=== PATIENT | female | born 1980 | race Caucasian/White ===

== ENCOUNTER 2023-03-25 09:43 | Emergency (ER) | payer MEDICAID, SELFPAY ==
[2023-03-25 09:45] VITALS: BP 146/85; PULSE 87; RESP 16; TEMP 36; O2SAT 97
--- NOTE | 2023-03-25 10:13 | EX.ED.DYSGE1 ---
HPI History of Present Illness Chief Complaint: General Illness Informant: patient Narrative Narrative: Patient was sent here due to high sugar and an outpatient visit. It is very difficult to get information from this patient. Almost every question she asked she says I do not know where she asks me why I am asking her and then still does not answer the question. Evidently she has not been feeling well but she cannot specify what this means. This has been going on a long time. Her friend pushed her to get evaluated today. Her sugar was up so they sent her to the emergency department. I can get from the patient that she has no nausea vomiting. She is eating and drinking. She has a slight chronic smoker's cough that is not changed. She does have a history of diabetes but she does not know how long ago it was diagnosed. She knows she was on metformin but does not know the dose. She knows its when she lived in [place] but she cannot tell me when she lived in [place]. She cannot tell me how long she has been off the meds. I can get her to state that she has polyuria and polydipsia. No visual change. She also complains of dental pain but states has been hurting for a long time it is no different today than any other day. [facility] Medical History delivery delivered Home Medications glipizide 5 mg tablet, extended release 24 hr 5 mg PO DAILY #30 tabs 03/25/23 [Rx Last Taken Unknown] Allergy/AdvReac Type Severity Reaction Status Date / Time No Known Allergies Allergy Verified 03/25/23 09:47 Social History Smoking Status: Current every day smoker tobacco type: cigarettes ROS ROS ED ROS Narrative A complete review of systems was performed and is negative except as documented in the history of present illness. Some specific details below. Constitutional: No recent fevers or chills. She has some chronic generalized malaise. EYE: No visual complaints or pain. ENT: No difficulty swallowing. No swelling. She does have some dental pain mostly on the left but it is chronic and unchanged. CV: No chest pain or palpitations. Respiratory: No dyspnea. No hemoptysis. No difficulty taking breaths. GI: No nausea vomiting or diarrhea. : She does have polyuria but no dysuria or hematuria. Musculoskeletal: No recent trauma. No pains. Skin: No rash. Nondiaphoretic. Neuro: No weakness or numbness. Endocrine: She does have polyuria and polydipsia. EXAM Physical Exam Narrative Exam Narrative: CONSTITUTIONAL: Patient is nontoxic in appearance. The patient looks comfortable. HEENT: No notable trauma. Mucous membranes are still moist. There is no dental abscess. No focal tenderness. Exam looks relatively normal. No sinus tenderness. No indication of pain with swallowing. EYES: No conjunctival injection. No proptosis. CARDIOVASCULAR: Regular rate. Regular rhythm. No notable murmur. No JVD. RESPIRATORY: No respiratory distress. Breathing is unlabored. No wheezes. No rhonchi. No rales. No pain with a deep breath. GASTROINTESTINAL: Not distended. Bowel sounds are normal. No tenderness. No guarding. No rebound. No palpable mass. No bruit. GENITOURINARY: No tenderness over the bladder. No CVA tenderness. MUSCULOSKELETAL: Atraumatic. No peripheral edema. No cord. No tenderness along the deep venous system. No asymmetry. NEUROLOGICAL: Patient is alert and appropriate. No focal deficit noted. SKIN: No noted rashes. No diaphoresis. PSYCHIATRIC: Patient is calm. Mood is appropriate. Const Vital Signs: 03/25/23 09:45 03/25/23 10:00 03/25/23 13:13 Temperature 96.8 F L Temperature Source Temporal Pulse Rate 87 78 Respiratory Rate 16 18 Respiratory Pattern Normal Blood Pressure 146/85 H 134/78 H Blood Pressure Mean 105 96 Pulse Ox 97 99 Oxygen Delivery Method Room Air MDM MDM MDM Narrative Medical decision making narrative: Patient CBC shows no acute abnormalities. Patient's electrolytes showed a glucose of 480. Sodium is minimally low but normal when corrected. BG T was initially 390. We rechecked it was 481 but this is more consistent with her lab. She was given IV fluids and insulin. She is now down to 338. Labs show no indication of DKA and there is no symptoms of this. She has not tolerated Glucophage in the past. We will start her on low-dose glipizide. It was explained that she needs to follow-up as she will likely need increase in dose or different medicine but I want at least get her started on some medication. Lab Data Attestation: I reviewed the patient's lab results. Labs: Laboratory Results - last 24 hr 03/25/23 03/25/23 03/25/23 10:06 10:27 11:26 WBC 5.5 RBC 4.83 Hgb 14.1 Hct 42.4 MCV 87.8 MCH 29.2 MCHC 33.3 RDW Std Deviation 40.3 RDW Coeff of [place] 12.5 Plt Count 252 MPV 9.7 Immature Gran % (Auto) 0.400 Neut % (Auto) 71.5 H Lymph % (Auto) 20.5 [place] % (Auto) 5.1 Eos % (Auto) 1.8 Baso % (Auto) 0.7 Absolute Neuts (auto) 3.9 Absolute Lymphs (auto) 1.13 Nucleated RBC % 0 Sodium 134 L Potassium 4.4 Chloride 100 Carbon Dioxide 26.0 Anion Gap 8 BUN 16 Creatinine 0.74 Est GFR (MDRD) Af Amer 110 Est GFR (MDRD) Non-Af 91 BUN/Creatinine Ratio 21.6 H Glucose 480 H* Calcium 9.2 POC Glucose 390 H 481 H* 03/25/23 12:43 WBC RBC Hgb Hct MCV MCH MCHC RDW Std Deviation RDW Coeff of [place] Plt Count MPV Immature Gran % (Auto) Neut % (Auto) Lymph % (Auto) [place] % (Auto) Eos % (Auto) Baso % (Auto) Absolute Neuts (auto) Absolute Lymphs (auto) Nucleated RBC % Sodium Potassium Chloride Carbon Dioxide Anion Gap BUN Creatinine Est GFR (MDRD) Af Amer Est GFR (MDRD) Non-Af BUN/Creatinine Ratio Glucose Calcium POC Glucose 338 H Discharge Plan Triage Chief Complaint: General Illness ED Provider: Daniele Juarez Dx/Rx/DC Orders Clinical Impression: Diabetes mellitus type 2 in obese, Non compliance w medication regimen Instructions: ED Diabetes- Overview, ED Diet: Diabetes Prescriptions: New glipizide 5 mg tablet extended release 24hr 5 mg PO DAILY Qty: 30 0RF Primary Care Provider: Care Physician,No Primary Referrals: Zeinab Steve [Non-Staff] - 3-5 Days NOT,DEFINED [Non-Staff] - Disposition Disposition: Home, Self Care Discharge Date/Time: 03/25/23 13:15
[2023-03-25 10:27] LABS: Bedside Glucose 390 mg/dL (74-106)
[2023-03-25] MEDS: 0.9% Normal Saline 1,000 ML 1000 ML IV (10:28)
[2023-03-25] MEDS: Insulin Lispro 100 UNIT/ML INSULN.PEN 10 UNIT SC (10:29)
[2023-03-25 10:38] LABS: Absolute Lymphocyte Count 1.13 X10^3/uL (0.83-4.51); Absolute Neutrophil Count 3.9 X10^3/uL (2.0-7.7); Basophil# 0.04 X10^3/uL; Basophil% 0.7 % (0-1); Eosinophils% 1.8 % (0-5); Hematocrit 42.4 % (37-47); Hemoglobin 14.1 g/dL (12.0-15.0); Lymphocyte # 1.13 X10^3/ul (0.83-4.51); Lymphocyte % 20.5 % (19-41); Mean Corp Hgb Conc 33.3 g/dL (32-36); Mean Corpuscular Hgb 29.2 pg (27.0-32.0); Mean Corpuscular Volume 87.8 fL (81-99); Mean Platelet Vol. 9.7 fl (6.2-12.0); Monocyte# 0.28 X10^3/uL; Monocyte% 5.1 % (0-10); NRBC Flagged by Analyzer 0 % (0-5); Neutrophil # 3.93 X10^3/uL (2.7-7.7); Neutrophil % 71.5 % (47-70); Platelet Count 252 K/mm3 (150-450); RBC Distribution Width CV 12.5 % (11.6-14.6); RBC Distribution Width SD 40.3 fl (35.1-43.9); Red Blood Count 4.83 M/mm3 (4.2-5.4); White Blood Count 5.5 K/mm3 (4.4-11.0)
[2023-03-25 10:54] LABS: Anion Gap 8 (5-15); BUN 16 mg/dL (7-18); BUN/Creat Ratio 21.6 RATIO (10-20); Calcium,Total 9.2 mg/dL (8.5-10.1); Chloride 100 mmol/L (98-107); Creatinine, Serum 0.74 mg/dL (0.55-1.02); EST Glomerular Filtration Rate 91 mL/min (>60); Est Glom Filt Rate - Afr Amer 110 mL/min (>60); Glucose 480 mg/dL (74-106); Potassium 4.4 mmol/L (3.5-5.1); Sodium Level 134 mmol/L (136-145)
[2023-03-25 11:45] LABS: Bedside Glucose 481 mg/dL (74-106)
[2023-03-25] MEDS: Insulin Lispro 100 UNIT/ML INSULN.PEN 15 UNIT SC (12:05)
[2023-03-25 13:02] LABS: Bedside Glucose 338 mg/dL (74-106)
[2023-03-25] MEDS: glipiZIDE XL 5 MG Tablet PO (13:10)
[2023-03-25 13:13] VITALS: BP 134/78; PULSE 78; RESP 18; O2SAT 99; BMI 44.4
== END 2023-03-25 13:15 | disposition home or self-care (01) ==
PROVIDERS: Emergency Provider Emergency Medicine; Visit Provider Emergency Medicine
DX: E11.9 Type 2 diabetes mellitus without complications (principal); J41.0 Simple chronic bronchitis; R35.89 Other polyuria; Z79.84 Long term (current) use of oral hypoglycemic drugs; Z91.148 Patient's other noncompliance with medication regimen for other reason; F17.210 Nicotine dependence, cigarettes, uncomplicated; R63.1 Polydipsia; E66.9 Obesity, unspecified
CPT/HCPCS: 80048; 82962; 85025; 96360; 96361; 99284; A4216

== ENCOUNTER 2023-04-29 21:58 | Emergency (ER) | payer MEDICAID, SELFPAY ==
[2023-04-29 21:59] VITALS: BP 145/91; PULSE 83; RESP 18; TEMP 36.1; O2SAT 98; BMI 43.3
--- NOTE | 2023-04-29 22:33 | EDS_ITS ---
HPI History of Present Illness Chief Complaint: Hyperglycemia Informant: patient Narrative Narrative: Patient presents for hyperglycemia, states her blood sugar was checked at the [facility] when she was there an hour or so ago and it was around 438. She states she has had polydipsia and polyuria, and cannot remember how long she has had it because that is normal for me I have diabetes. She is very poor historian. It basically sounds like from what I am able to gather from her that she was prescribed glipizide out of the ER and was on no diabetes medications prior to that, does not have a meter, had no doctor before going to the [facility], and was just prescribed glimepiride and insulin from there which she has not started yet. They wanted her to come to the emergency department but she refused, due to her high blood sugar, then she went back to the [facility] is currently staying at, and they told her that if she wants to continue staying there that she had to come and get her blood sugar feels fine. She denies any recent illness. She is currently using no illicit substances. [facility] Medical History Anxiety Bipolar disorder delivery delivered Depression Diabetes Home Medications glipizide 5 mg tablet, extended release 24 hr 5 mg PO DAILY #30 tabs 03/25/23 [Rx Last Taken Unknown] aripiprazole 5 mg tablet mg 04/29/23 [History Last Taken Unknown] blood sugar diagnostic #25 ea 04/29/23 [Rx Last Taken Unknown] blood-glucose meter #1 ea 04/29/23 [Rx Last Taken Unknown] clonidine HCl 0.1 mg tablet mg 04/29/23 [History Last Taken Unknown] dulaglutide 0.75 mg/0.5 mL subcutaneous pen injector (Trulicity) mg subcut 04/29/23 [History Last Taken Unknown] glimepiride 2 mg tablet 2 mg PO BID 04/29/23 [History Last Taken Unknown] hydroxyzine HCl 10 mg tablet mg 04/29/23 [History Last Taken Unknown] Allergy/AdvReac Type Severity Reaction Status Date / Time No Known Allergies Allergy Verified 04/29/23 22:02 Social History Smoking Status: Current every day smoker tobacco type: cigarettes ROS ROS ED Constitutional Constitutional ED: Denies chills or fever(s) Eyes Eyes: Denies change in vision or diplopia ENT ENT ED: Denies rhinorrhea or sore throat Cardiovascular Cardiovascular: Denies chest pain or palpitations Respiratory/Chest Respiratory/Chest: Denies cough or dyspnea Gastrointestinal Gastrointestinal: Denies abdominal pain, diarrhea, nausea or vomiting Genitourinary Genitourinary ED: Reports urinary frequency; Denies dysuria or hematuria Musculoskeletal Musculoskeletal: Denies back pain or neck pain Integumentary Denies abscess or rash Neurologic Neurologic: Denies headache(s), paresthesias or weakness Psychiatric Psychiatric: Denies anxiety or suicidal thoughts Endocrine Endocrinology: Reports polydipsia and polyuria EXAM Physical Exam Const Vital Signs: 04/29/23 21:59 Temperature 96.9 F L Temperature Source Temporal Pulse Rate 83 Respiratory Rate 18 Blood Pressure 145/91 H Blood Pressure Mean 109 Pulse Ox 98 Oxygen Delivery Method Room Air Positive well nourished, well developed and obese General Appearance ED: well developed and NAD Nutritional Appearance: obese HEENT Reports moist mucous membranes normocephalic and atraumatic Eyes PERRL and EOMs intact bilaterally Neck full ROM and supple Resp normal respiratory effort and clear to auscultation bilaterally Cardio regular rate, regular rhythm and no murmurs GI non-tender and non-distended Auscultation: normoactive bowel sounds Palpation: soft Back/Spine no CVA tenderness General Back: other FROM Extremity normal to inspection General Extremety ED: Negative for edema, pulses abnormal or tenderness General Extremity: Negative for edema or pulses abnormal Neuro oriented x3, CN's II-XII intact bilaterally and no sensory deficits noted Sensorium / Orientation: awake and alert Motor Exam: strength 5/5 throughout Skin no rashes or lesions noted and no wounds MDM MDM MDM Narrative Medical decision making narrative: Patient was given an IV with a liter of fluids and subcutaneous insulin and her blood sugar was monitored until it came down to a safe level. Nursing taught the patient to use her Trulicity, and help to give her her first dose tonight; the patient was not prescribed insulin, it is weekly subcutaneous Trulicity. We will have the patient follow-up for further diabetes education in the office. Lab Data Attestation: I reviewed the patient's lab results. Labs: Laboratory Results - last 24 hr 04/29/23 04/29/23 04/29/23 22:33 23:07 23:15 Sodium 135 L Potassium 3.9 Chloride 102 Carbon Dioxide 27.0 Anion Gap 6 BUN 17 Creatinine 0.80 Estim Creat Clear Calc 68.42 Est GFR (MDRD) Af Amer 101 Est GFR (MDRD) Non-Af 83 BUN/Creatinine Ratio 21.3 H Glucose 290 H Calcium 9.1 Urine Color Yellow Urine Clarity Clear Urine pH 6.0 Ur Specific [place] 1.020 Urine Protein 15 H Urine Glucose (UA) 1000 H Urine Ketones Negative Urine Occult Blood Negative Urine Nitrite Negative Urine Bilirubin Negative Urine Urobilinogen Normal Ur Leukocyte Esterase Negative Urine RBC 0 SEEN Urine WBC 0 SEEN Ur Squamous Epith Cells 0-5 SEEN Urine Bacteria RARE Urine Mucus 0 SEEN POC Glucose 261 H Discharge Plan Triage Chief Complaint: Hyperglycemia ED Provider: Andrew Ramirez Dx/Rx/DC Orders Clinical Impression: Uncontrolled type 2 diabetes mellitus with hyperglycemia Instructions: ED Diabetic Hyperglycemia Prescriptions: New (DME) blood sugar diagnostic Strip See Rx Instructions .Route Qty: 25 0RF Rx Instructions: As directed (DME) blood-glucose meter Misc See Rx Instructions .Route Qty: 1 0RF Rx Instructions: As directed No Action clonidine HCl 0.1 mg tablet Patient Comments: take 1 tablet by mouth twice a day as needed for anxiety glimepiride 2 mg tablet 2 mg PO BID aripiprazole 5 mg tablet Patient Comments: take one tablet by mouth once a day Trulicity 0.75 mg/0.5 mL pen injector SUBCUT hydroxyzine HCl 10 mg tablet Patient Comments: take 1 tablet by mouth 30 minutes before bedtime glipizide 5 mg tablet extended release 24hr 5 mg PO DAILY Qty: 30 0RF Primary Care Provider: Care Physician,No Primary Referrals: Zeinab Steve [Non-Staff] - As soon as possible (call for follow up appt; they will continue diabetes management education) Disposition Disposition: Home, Self Care
[2023-04-29] MEDS: 0.9% Normal Saline 1,000 ML 999 ML IV (22:37)
[2023-04-29] MEDS: Insulin Lispro 100 UNIT/ML INSULN.PEN 22 UNIT SC (22:43)
[2023-04-29 23:06] LABS: Anion Gap 6 (5-15); BUN 17 mg/dL (7-18); BUN/Creat Ratio 21.3 RATIO (10-20); Calcium,Total 9.1 mg/dL (8.5-10.1); Chloride 102 mmol/L (98-107); EST Glomerular Filtration Rate 83 mL/min (>60); Est Glom Filt Rate - Afr Amer 101 mL/min (>60); Estimated Creatinine Clearance 68.42 ml/min; Glucose 290 mg/dL (74-106); Potassium 3.9 mmol/L (3.5-5.1); Sodium Level 135 mmol/L (136-145)
[2023-04-29 23:39] LABS: Bedside Glucose 261 mg/dL (74-106)
[2023-04-29 23:46] LABS: Mucous, Urine 0 SEEN /hpf (<or=2+); Red Blood Cells-Urine 0 SEEN /hpf (0-5); White Blood Cells 0 SEEN /hpf (0-5)
[2023-04-29 23:48] LABS: Color, Urine Yellow (Yellow); Glucose, Dipstick 1000 mg/dl (Normal); Ketone-Dipstick Negative (Negative); Leukocyte Esterase-Dipstick Negative /ul (Negative); Nitrite-Dipstick Negative (Negative); Occult Blood-Urine Negative /ul (Negative); Protein-Dipstick 15 mg/dl (Negative); Urine Bilirubin Dipstick Negative (Negative); Urine Clarity Clear (Clear); Urine Urobilinogen Normal (Normal)
[2023-04-29 23:55] LABS: Bacteria RARE /hpf (None Seen); Squamous Epithelial Cells - UA 0-5 SEEN /hpf (5-10)
[2023-04-30 00:33] VITALS: BP 151/84; PULSE 78; RESP 16; O2SAT 98
[2023-04-30 00:39] VITALS: BP 151/84; PULSE 78; RESP 16; O2SAT 97
[2023-04-30 00:53] LABS: Bedside Glucose 129 mg/dL (74-106)
== END 2023-04-30 00:42 | disposition home or self-care (01) ==
PROVIDERS: Emergency Provider Emergency Medicine; Visit Provider Emergency Medicine
DX: E11.65 Type 2 diabetes mellitus with hyperglycemia (principal); F17.210 Nicotine dependence, cigarettes, uncomplicated; R63.1 Polydipsia; R35.89 Other polyuria; Z79.84 Long term (current) use of oral hypoglycemic drugs; Z79.899 Other long term (current) drug therapy; R35.0 Frequency of micturition; E66.9 Obesity, unspecified; Z79.85 Long-term (current) use of injectable non-insulin antidiabetic drugs
CPT/HCPCS: 80048; 81001; 82962; 96360; 99282; J7030

== ENCOUNTER 2023-05-17 16:24 | Emergency (ER) | payer MEDICAID, SELFPAY ==
[2023-05-17 16:27] VITALS: BP 145/93; PULSE 98; RESP 18; TEMP 36.1; O2SAT 95; BMI 42.3
--- NOTE | 2023-05-17 17:11 | EX.ED.DYSGE1 ---
HPI History of Present Illness Chief Complaint: Mental Health [facility] Medical History Anxiety Bipolar disorder delivery delivered Depression Diabetes Home Medications glipizide 5 mg tablet, extended release 24 hr 5 mg PO DAILY #30 tabs 03/25/23 [Rx Last Taken Unknown] aripiprazole 5 mg tablet mg 04/29/23 [History Last Taken Unknown] blood sugar diagnostic #25 ea 04/29/23 [Rx Last Taken Unknown] blood-glucose meter #1 ea 04/29/23 [Rx Last Taken Unknown] clonidine HCl 0.1 mg tablet mg 04/29/23 [History Last Taken Unknown] dulaglutide 0.75 mg/0.5 mL subcutaneous pen injector (Trulicity) mg subcut 04/29/23 [History Last Taken Unknown] glimepiride 2 mg tablet 2 mg PO BID 04/29/23 [History Last Taken Unknown] hydroxyzine HCl 10 mg tablet mg 04/29/23 [History Last Taken Unknown] Allergy/AdvReac Type Severity Reaction Status Date / Time No Known Allergies Allergy Verified 05/17/23 16:27 Social History Smoking Status: Heavy Smoker (>10/day) EXAM Physical Exam Const Vital Signs: 05/17/23 16:27 05/17/23 16:51 05/17/23 17:33 Temperature 97 F L Temperature Source Temporal Pulse Rate 98 72 Respiratory Rate 18 14 Respiratory Effort Normal Respiratory Pattern Normal Blood Pressure 145/93 H 140/85 H Blood Pressure Mean 110 103 Pulse Ox 95 98 Oxygen Delivery Method Room Air Room Air 05/17/23 19:00 05/17/23 22:02 Temperature Temperature Source Pulse Rate 65 86 Respiratory Rate 14 14 Respiratory Effort Respiratory Pattern Blood Pressure 110/72 141/99 H Blood Pressure Mean 84 113 Pulse Ox 100 100 Oxygen Delivery Method Room Air Room Air MDM MDM MDM Narrative Medical decision making narrative: HISTORY OF PRESENT ILLNESS: 41-year-old female here with concern for elevated blood sugar. States she has not been compliant with her home glipizide. She also states she is having suicidal thoughts, depression. States was [facility] a [facility] she does not plan on going back there. Denies any specific plan. Denies a history of suicidal attempt. Denies any homicidal ideation auditory visual hallucinations. REVIEW OF SYSTEMS: Pertinent positives: Elevated blood sugar, suicidal ideation Pertinent negatives: [Homicidal ideation, auditory visual loose [place] PHYSICAL EXAM: Nursing triage notes reviewed, Vital signs reviewed Constitutional: please see mdm HENT: MMM Eyes: Pupils equal round and reactive to light, Extraocular muscles intact Neck: No stridor, no JVD, full neck ROM Lungs: Clear to auscultation, No wheezing or rales. No increased work of breathing, no conversational dyspnea, no accessory muscle use, no nasal flaring. No respiratory distress noted Heart: Regular rate and rhythm, No murmurs, No rubs and No gallops, 2+ distal pulses (radial, femoral, posterior tibial) in all extremities Abdomen: Soft, there is no tenderness, rigidity, rebound or guarding, no obvious peritoneal signs, no palpable pulsatile abdominal masses, no auscultated abdominal bruit : No CVAT Extremities: No edema Neuro: No focal neurological deficits, cranial nerves II through XII intact, 5/5 strength in all extremities. Intact sensation to light touch in all extremities, 2+ reflexes bilateral patella tendons. Normal gait. No ataxia. Skin: No rash or lesions noted Psych: Normal affect, goal-directed thought process, appears well MEDICAL DECISION MAKING: Chief Complaint: Hyperglycemia, suicidal ideation External records reviewed: Prior ED visit reviewed. Seen on 04/29/2023 for type 2 diabetes hyperglycemia Factors affecting care: Type 2 diabetes Social determinants of health: Smoker History obtained from others: none Consults: behavioral health ALL IMAGES (IF OBTAINED) HAVE BEEN PERSONALLY REVIEWED AND INTERPRETED BY MYSELF. [facility] Narrative: Patient was hemodynamically stable, afebrile, nontoxic-appearing. No focal neurologic deficits. I considered the following differential diagnosis: Hyperglycemia, DKA I obtain medical clearance labs as well as labs to rule out signs of DKA. There is no evidence of DKA on patient's labs. Remainder of medical clearance labs were unremarkable. Patient was medically cleared. Discussed the case with behavioral health. Behavioral health will begin looking for possible inpatient psychiatric placement given the patient's report of suicidal ideation. Patient was signed out to p.m. physician pending transfer to psychiatric facility. The patient and/or family, caregivers express understanding. The patient and/or family, caregivers agrees with the plan. Shared decision making: I will have a discussion with the patient and or visitors regarding risk/benefits of further testing or admission. They will be made aware of of the risk/benefits inherent in this decision they will be given the opportunity to voice understanding. Total critical care time today provided was at least 0 minutes. This excludes separately billable procedures. Critical care time (if documented) is secondary to the patient having high probability of clinically significant/life threatening deterioration in the patient's condition which required my urgent intervention. Lab Data Attestation: I reviewed the patient's lab results. Lab results narrative: CBC without leukocytosis, severe anemia, no thrombocytopenia. BMP without evidence of significant electrolyte abnormalities, no anion gap, no acute kidney injury. There is no evidence of DKA Urine tox screen negative Acetone negative Urine test is negative Labs: Laboratory Results - last 24 hr 05/17/23 05/17/23 05/17/23 17:14 17:41 21:48 WBC 5.6 RBC 4.68 Hgb 13.8 Hct 40.2 MCV 85.9 MCH 29.5 MCHC 34.3 RDW Std Deviation 40.7 RDW Coeff of [place] 13.1 Plt Count 223 MPV 8.8 Immature Gran % (Auto) 0.400 Neut % (Auto) 64.2 Lymph % (Auto) 24.3 [place] % (Auto) 7.2 Eos % (Auto) 3.2 Baso % (Auto) 0.7 Absolute Neuts (auto) 3.6 Absolute Lymphs (auto) 1.35 Nucleated RBC % 0 Sodium 139 Potassium 4.1 Chloride 107 Carbon Dioxide 26.0 Anion Gap 6 BUN 11 Creatinine 0.86 Estim Creat Clear Calc 63.65 Est GFR (MDRD) Af Amer 92 Est GFR (MDRD) Non-Af 76 BUN/Creatinine Ratio 12.8 Glucose 236 H Calcium 8.8 Serum , Qual NEGATIVE Urine Opiates Screen NEGATIVE Urine Methadone Screen NEGATIVE Ur Barbiturates Screen NEGATIVE Ur Phencyclidine Scrn NEGATIVE Ur Amphetamines Screen NEGATIVE MDMA (Ecstasy) Screen NEGATIVE U Benzodiazepines Scrn NEGATIVE Urine Cocaine Screen NEGATIVE U Cannabinoids Screen NEGATIVE Ur Drug Screen Comment Ethyl Alcohol < 3.0 Acetone Level NEGATIVE POC Glucose 199 H 130 H Discharge Plan Triage Chief Complaint: Mental Health Other Complaint: Hyperglycemia ED Provider: Hilton Pizarro Dx/Rx/DC Orders Prescriptions: No Action clonidine HCl 0.1 mg tablet Patient Comments: take 1 tablet by mouth twice a day as needed for anxiety glimepiride 2 mg tablet 2 mg PO BID aripiprazole 5 mg tablet Patient Comments: take one tablet by mouth once a day Trulicity 0.75 mg/0.5 mL pen injector SUBCUT hydroxyzine HCl 10 mg tablet Patient Comments: take 1 tablet by mouth 30 minutes before bedtime (DME) blood sugar diagnostic Strip See Rx Instructions .Route Qty: 25 0RF Rx Instructions: As directed (DME) blood-glucose meter Misc See Rx Instructions .Route Qty: 1 0RF Rx Instructions: As directed glipizide 5 mg tablet extended release 24hr 5 mg PO DAILY Qty: 30 0RF Primary Care Provider: Care Physician,No Primary Referrals: Care Physician,No Primary [Primary Care Provider] -
[2023-05-17 17:27] LABS: Absolute Lymphocyte Count 1.35 X10^3/uL (0.83-4.51); Absolute Neutrophil Count 3.6 X10^3/uL (2.0-7.7); Basophil# 0.04 X10^3/uL; Basophil% 0.7 % (0-1); Eosinophil# 0.18 X10^3/uL; Eosinophils% 3.2 % (0-5); Hematocrit 40.2 % (37-47); Hemoglobin 13.8 g/dL (12.0-15.0); Lymphocyte # 1.35 X10^3/ul (0.83-4.51); Lymphocyte % 24.3 % (19-41); Mean Corp Hgb Conc 34.3 g/dL (32-36); Mean Corpuscular Hgb 29.5 pg (27.0-32.0); Mean Corpuscular Volume 85.9 fL (81-99); Mean Platelet Vol. 8.8 fl (6.2-12.0); Monocyte% 7.2 % (0-10); NRBC Flagged by Analyzer 0 % (0-5); Neutrophil # 3.56 X10^3/uL (2.7-7.7); Neutrophil % 64.2 % (47-70); Platelet Count 223 K/mm3 (150-450); RBC Distribution Width CV 13.1 % (11.6-14.6); RBC Distribution Width SD 40.7 fl (35.1-43.9); Red Blood Count 4.68 M/mm3 (4.2-5.4); White Blood Count 5.6 K/mm3 (4.4-11.0)
[2023-05-17 17:33] VITALS: BP 140/85; PULSE 72; RESP 14; O2SAT 98
[2023-05-17 17:39] LABS: Alcohol, Blood (Medical)-Serum < 3.0 mg/dL
[2023-05-17 17:41] LABS: Anion Gap 6 (5-15); BUN 11 mg/dL (7-18); BUN/Creat Ratio 12.8 RATIO (10-20); Calcium,Total 8.8 mg/dL (8.5-10.1); Chloride 107 mmol/L (98-107); Creatinine, Serum 0.86 mg/dL (0.55-1.02); EST Glomerular Filtration Rate 76 mL/min (>60); Est Glom Filt Rate - Afr Amer 92 mL/min (>60); Estimated Creatinine Clearance 63.65 ml/min; Glucose 236 mg/dL (74-106); Potassium 4.1 mmol/L (3.5-5.1); Sodium Level 139 mmol/L (136-145)
[2023-05-17 17:53] LABS: Internal QC Validated? YES +Cl - CLEAR BKGD; Pregnancy, Serum, hCG Quali. NEGATIVE Negative
[2023-05-17 17:59] LABS: Bedside Glucose 199 mg/dL (74-106)
[2023-05-17 19:00] VITALS: BP 110/72; PULSE 65; RESP 14; O2SAT 100
[2023-05-17 19:18] LABS: Amphetamine Urine VISTA NEGATIVE (<1000 ng/mL); Barbiturate Urine VISTA NEGATIVE (< 200 ng/mL); Benzodiazepine Urine VISTA NEGATIVE (< 200 ng/mL); Cocaine Urine VISTA NEGATIVE (< 300 ng/mL); Ecstacy Urine VISTA NEGATIVE (< 500 ng/mL); Methadone Urine VISTA NEGATIVE (< 300 ng/mL); PCP Urine VISTA NEGATIVE (< 25 ng/mL); THC Urine VISTA NEGATIVE (< 50 ng/mL); Vista UDS pH Range 5
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
[2023-05-17 22:02] VITALS: BP 141/99; PULSE 86; RESP 14; O2SAT 100
[2023-05-17 22:09] LABS: Bedside Glucose 130 mg/dL (74-106)
--- NOTE | 2023-05-18 03:37 | ED.RN ---
Report given to Aliza PENA @ [employer].
[2023-05-18 03:40] VITALS: RESP 17
[2023-05-18 06:05] VITALS: BP 114/62; PULSE 87; RESP 18; O2SAT 100
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
== END 2023-05-18 06:07 ==
PROVIDERS: Emergency Provider Emergency Medicine; Visit Provider Emergency Medicine
DX: R45.851 Suicidal ideations (principal); E11.65 Type 2 diabetes mellitus with hyperglycemia; F17.200 Nicotine dependence, unspecified, uncomplicated; Z91.148 Patient's other noncompliance with medication regimen for other reason; F32.A Depression, unspecified; Z59.00 Homelessness unspecified
CPT/HCPCS: 80048; 80307; 82009; 82077; 82962; 84703; 85025; 87811; 99285

== ENCOUNTER → 2024-11-07 | Outpatient (CLI) | payer MEDICAID, SELFPAY ==
[2024-11-07 14:35] LABS: Absolute Neutrophil Count 3.9 X10^3/uL (2.0-7.7); Basophil# 0.08 X10^3/uL; Basophil% 1.1 % (0-1); Eosinophil# 0.34 X10^3/uL; Eosinophils% 4.9 % (0-5); Hematocrit 40.6 % (37-47); Hemoglobin 14.1 g/dL (12.0-15.0); Mean Corp Hgb Conc 34.7 g/dL (32-36); Mean Corpuscular Hgb 29.2 pg (27.0-32.0); Mean Corpuscular Volume 84.1 fL (81-99); Mean Platelet Vol. 9.6 fl (6.2-12.0); Monocyte# 0.51 X10^3/uL; Monocyte% 7.3 % (0-10); NRBC Flagged by Analyzer 0 % (0-5); Neutrophil # 3.94 X10^3/uL (2.7-7.7); Neutrophil % 56.4 % (47-70); Platelet Count 236 K/mm3 (150-450); RBC Distribution Width CV 12.3 % (11.6-14.6); RBC Distribution Width SD 37.2 fl (35.1-43.9); Red Blood Count 4.83 M/mm3 (4.2-5.4)
[2024-11-07 15:09] LABS: ALB/GLOB Ratio 0.9 RATIO (0.9-2.4); AST(SGOT) 13 U/L (15-37); Alanine Aminotransfer ALT/SGPT 28 U/L (13-56); Albumin, Serum 3.7 g/dL (3.2-5.0); Alkaline Phosphatase 101 U/L (45-117); Anion Gap 7 (5-15); BUN 21 mg/dL (7-18); BUN/Creat Ratio 27.5 RATIO (10-20); Calcium,Total 9.7 mg/dL (8.5-10.1); Chloride 102 mmol/L (98-107); Cholesterol 265 mg/dL (200); Creatinine, Serum 0.76 mg/dL (0.55-1.02); EST Glomerular Filtration Rate 87 mL/min (>60); Est Glom Filt Rate - Afr Amer 105 mL/min (>60); Globulin 4.3 g/dL (2.2-4.2); Glucose 318 mg/dL (74-106); High Density Lipoprotein 54 mg/dL; Potassium 4.5 mmol/L (3.5-5.1); Sodium Level 135 mmol/L (136-145); Triglycerides 451 mg/dL
[2024-11-07 15:39] LABS: Microalbumin,Random Urine 14.8 mg/L (NO RANGE EST.)
== END | disposition home or self-care (01) ==
LOC: VSLAB 13:41
DX: E11.8 Type 2 diabetes mellitus with unspecified complications (principal)
CPT/HCPCS: 36415; 80053; 80061; 82043; 84443; 85025

== ENCOUNTER → 2025-04-16 | Outpatient (CLI) | payer MEDICAID, SELFPAY ==
[2025-04-16 16:30] LABS: Hematocrit 37.3 % (37-47); Hemoglobin 13.1 g/dL (12.0-15.0); Immature Granulocytes Count 0.010 X10^3/uL (0.0-0.0); Mean Corp Hgb Conc 35.1 g/dL (32-36); Mean Corpuscular Volume 84.4 fL (81-99); Mean Platelet Vol. 9.9 fl (6.2-12.0); NRBC Flagged by Analyzer 0 % (0-5); Platelet Count 197 K/mm3 (150-450); RBC Distribution Width CV 13.2 % (11.6-14.6); RBC Distribution Width SD 39.9 fl (35.1-43.9); Red Blood Count 4.42 M/mm3 (4.2-5.4); White Blood Count 5.4 K/mm3 (4.4-11.0)
[2025-04-16 16:49] LABS: Microalbumin,Random Urine < 12.0 mg/L (<20 mg/L)
[2025-04-16 16:51] LABS: Cholesterol 249 mg/dL (<=200); Low Density Lipoprotein Calc. 67 mg/dL; Triglycerides 703 mg/dL; Very Low Density Lipoprotein 141 mg/dL (5-40); cholesterol:hdl ratio screen 6.06
[2025-04-16 17:18] LABS: AST(SGOT) 16 U/L (<=31); Alanine Aminotransfer ALT/SGPT 18 U/L (<=34); Albumin, Serum 4.1 g/dL (3.5-5.0); Alkaline Phosphatase 97 U/L (35-104); Anion Gap 12 (5-15); BUN 10 mg/dL (4-19); BUN/Creat Ratio 13.7 RATIO (10-20); Calcium,Total 9.1 mg/dL (7.6-11.0); Carbon Dioxide 20.7 mmol/L (21.0-32.0); Chloride 99 mmol/L (98-108); Globulin 2.9 g/dL (2.2-4.2); Glucose 485 mg/dL (70-99); Potassium 4.3 mmol/L (3.3-5.1)
== END | disposition home or self-care (01) ==
LOC: VSLAB 14:20
DX: E11.8 Type 2 diabetes mellitus with unspecified complications (principal); E78.5 Hyperlipidemia, unspecified
CPT/HCPCS: 36415; 80053; 80061; 82043; 84443; 85025

== ENCOUNTER 2025-06-06 09:20 | Outpatient (RCR) | payer MEDICAID, SELFPAY | END 2025-06-26 23:59 | LOC: NS 09:20 | DX: Z71.3 Dietary counseling and surveillance (principal); E11.9 Type 2 diabetes mellitus without complications | CPT/HCPCS: 97802 ==

== ENCOUNTER → 2025-07-17 | Outpatient (CLI) | payer MEDICAID, SELFPAY ==
--- OUTSIDE RECORDS SUMMARY | 2025-07-17 15:08 | XMS RPT_ITS | CCD ---
Author Organization [facility] Care Team Providers Care Train Dispatcher Name Role Phone Travis Petersen MD Primary Care Provider TRAVIS PETERSEN Primary Care Unavailable STEPHANI CEDILLO Attending Unavailable TRAVIS PETERSEN Primary Care Unavailable HESHAM JACOB Attending Unavailable SECOR, KASSIE Rodriguez Primary Care Unavailable SECELSA, KASSIE Rodriguez Referring Unavailable ALFRED COTTER Attending Unavailable SECKASSIE HUNTER Primary Care Unavailable SAEED COOK Attending Unavailable SECORKASSIE Primary Care Unavailable Juan Clark Attending Unavailable Physician, No Pcp Primary Care Provider Unavaila ble Self, Self Primary Care Provider Unavailhira e SELF, SELF Primary Care Unavailable MAMI AMARO Attending Unavailable SELF, SELF Primary Care Unavailable SONA RODRÍGUEZ Attending Unavailable CONSULT, ED PSYCHIATRY TEAM Consulting Unav ailable PHYSICIAN, NO PCP Primary Care Unavailable RITA PIPER Attending Unavailable PHYSICIAN, NO PCP Primary Care Unavailable RITA PIPER Referring Unavailable PHYSICIAN, NO PCP Primary Care Unavailable NATTERER STAYCI~[id number], NA TTERER STAYCI~[phone] NATTERCISCO Attending Unavailable ALFRED FLORES Attending Unavailabl e PHYSICIAN, NO PCP Primary Care Unavailable STEFANIE MTICHELL Attending Unavailable PHYSICIAN, NO PCP Primary Care Unavailable [facility][id number] Attending Unavailable PHYSICIAN, NO PCP Primary Care Unavailable TEOFILO HADDAD Attending Unavaila ble NO, PHYSICIAN Primary Care Unavailable NO, PHYSICIAN Primary Care Unavailable MEHDI THOMAS Attending Unavailable BRENNEN SWENSON Attending Unavailable NO, PHYSICIAN Primary Care Unavailable LUX BECKER Attending Unavailab le NO, PHYSICIAN Primary Care Unavailable ROLAN SANDERSON DO Attending Unavailable ROLAN SANDERSON DO Primary Care Unavailable ROLAN SANDERSON DO Admitting Unavailable Beam INDUCTION HEAT TREATER-C, Zebuluamna Primary Care Provider Beam INDUCTION HEAT TREATER-C, Zebulun Attending Provider Beam INDUCTION HEAT TREATER-C, Zebulun Primary Care Physician Beam INDUCTION HEAT TREATER-C, Zebulun Attending Physician Beam, Galen Attending Physician Unavailable Beam VSC, Zebulun Primary Care Unavailable Beam VSC, Zebulun Attending Unavailable Beam, Galen Attending Unavailable Beam VSC, Zebulun Primary Care Unavailable Beam VSC, Zebulun Primary Care Unavailable Beam, Galen Attending Unavailable Beam VSC, Zebulun Primary Care Unavailable Beam VSC, Zebulun Attending Unavailable Medications Current Medications Medication Drug Class(es) Dates Sig (Normalized) Sig (Original) ARIPiprazole 5 mg oral tablet (3 sources) Atypical Antipsychotic Start: 04-29-2023 Start: 04-29-2023 Aripiprazole A ctive MG April 29, 2023 12:00am benzonatate 200 mg oral capsule (3 sources) Non-narcotic Antitussive Start: 09-29-2023 End: 10-06-2023 take 1 capsule by mouth three times daily for cough benzonatate 200 MG capsule Take 1 capsule by mouth three times a day if needed for cough for up to 7 days. Do not crush or chew. 21 capsule 09/30/2023 Active Blood Sugar Diagnostic (1 source) Start: 04-29-2023 Blood Sugar Diagnostic Active 0 .Route 25 April 29, 2023 12:00am As directed Blood-Glucose Meter (1 source) Start: 04-29-2023 Blood-Glucose Meter Active 0 .Route April 29, 2023 12:00am As directed Blood-Glucose Meter misc (2 sources) Start: 04-29-2023 Blood-Glucose Meter misc Active 0 .Route 1 0 April 29, 2023 12:00am As directed Cholecalciferol (1 source) Vitamin D Cholecalciferol (VITAMIN D PO) Take by mouth 0 Active cloNIDine hydrochloride 0.1 mg oral tablet (3 sources) Central alpha-2 Adrenergic Agonist Start: 04-29-2023 Start: 04-29-2023 Clonidine Hcl Active MG April 29, 2023 12:00am cyclobenzaprine hydrochloride 10 mg oral tablet (1 source) Muscle Relaxant Start: 03-17-2024 End: 03-27-2024 take 1 tablet by mouth twice daily for muscle spasms cyclobenzaprine (FLEXERIL) 10 mg tablet Take 1 tablet (10 mg total) by mouth 2 (two) times a day if needed for muscle spasms for up to 10 days. 20 tablet 03/17/2024 03/27/2024 Active 0.5 ml dulaglutide 1.5 mg/ml auto-injector (3 sources) GLP-1 Receptor Agonist Start: 04-29-2023 Start: 04-29-2023 Dulaglutide (D ulaglutide 0.75 Mg/0.5 Ml Subcutaneous Pen Injector) 0.75 mg/0.5 mL pen injector Active MG SC April 29, 2023 12:00am Fenofibrate (1 source) Peroxisome Proliferator Receptor alpha Agonist FENOFIBRATE PO Take by mouth 0 Active glimepiride 2 mg oral tablet (3 sources) Sulfonylurea Start: 04-29-20 take 1 tablet by mouth twice daily glipiZIDE er 5 mg 24 hr extended release oral tablet (5 sources) Sulfonylurea Start: 03-25-20 take 1 tablet by mouth once daily hydrOXYzine hydrochloride 10 mg oral tablet (3 sources) Antihistamine Start: 04-29-20 Start: 04-29-2023 Hydroxyzine Hc l Active MG April 29, 2023 12:00am ibuprofen 600 mg oral tablet (4 sources) Nonsteroidal Anti-inflammatory Drug Start: 03-17-2024 End: 03-27-2024 take 1 tablet by mouth every six hours as needed ibuprofen (ADVIL,MOTRIN) 600 mg tablet Take 1 tablet (600 mg total) by mouth every 6 (six) hours if needed for mild pain (for pain) for up to 10 days. 30 tablet 03/17/2024 03/27/2024 Active Start: 03-17-2024 End: 03-17-2024 take 600 mg by mouth once at mealtime 600 mg, oral, Once, On Wed03/17/24 at 1220, For 1 dose, Administer with food or milk to decrease GI upset Start: 03-01-2024 End: 03-06-2024 take 1 tablet by mouth every six hours as needed ibuprofen (ADVIL,MOTRIN) 600 mg tablet Take 1 tablet (600 mg total) by mouth every 6 (six) hours if needed for mild pain (for pain) for up to 5 days. 20 each 03/01/2024 03/06/2024 Active Start: 02-09-2024 End: 02-09-2024 take 1 tablet by mouth every six hours as needed 600 mg, Oral, EVERY 6 HOURS NEEDED, Starting on Wed02/09/24 at 0912, Until Wed02/09/24 at 1752, Moderate Pain, Give with food lidocaine 0.05 mg/mg medicated patch (3 sources) Antiarrhythmic, Amide Local Anesthetic Start: 03-17-2024 End: 04-16-2024 apply 1 dose transdermal route once daily, then apply 1 dose transdermal route every twelve hours lidocaine (Lidoderm) 5 % patch Apply 1 patch topically 1 (one) time each day. Remove & discard patch within 12 hours or as directed by . 30 each 03/17/2024 04/16/2024 Active Start: 03-17-2024 End: 03-17-2024 apply 1 dose topically every twelve hours, then apply 1 dose topically once 1 patch, Topical, Administer over 12 Hours, Once, On Wed03/17/24 at 1220, For 1 dose, Apply to shoulder. Start: 03-01-2024 End: 03-02-2024 apply 1 dose topically every twelve hours, then apply 1 dose topically once 1 patch, Topical, Administer over 12 Hours, Once, On Wed03/01/24 at 2336, For 1 dose, Apply to left trapezius area metFORMIN hydrochloride 500 mg oral tablet (6 sources) Biguanide Start: 01-06-2024 End: 04-16-2024 take 1 tablet by mouth twice daily at mealtime metFORMIN (GLUCOPHAGE) 500 mg tablet Take 1 tablet (500 mg total) by mouth 2 (two) times a day with meals. 60 each 03/17/2024 04/16/2024 Active METFORMIN HCL PO Take by mouth 0 Active OXcarbazepine (1 source) Anti-epileptic Agent OXcarbazepi ne (TRILEPTAL PO) Take by mouth 0 Active sulfamethoxazole 800 mg / trimethoprim 160 mg oral tablet (1 source) Dihydrofolate Reductase Inhibitor Antibacterial, Sulfonamide Antimicrobial Start: End: take 1 tablet by mouth twice daily sulfamethoxazole-tri methoprim (Bactrim DS) 800-160 mg per tablet Take 1 tablet by mouth 2 (two) times a day for 7 days. 14 each 01/06/2024 01/13/2024 Active traZODone (1 source) Serotonin Reuptake Inhibitor TRAZODONE HCL PO Take by mouth 0 Active Completed/Discontinued Medications Medication Drug Class(es) Dates Sig (Normalized) Sig (Original) acetaminophen 500 mg oral tablet (3 sources) Start: 03-01-2024 End: 03-01-2024 take 1000 mg by mouth once 1,000 mg, oral, Once, On Wed03/01/24 at 2320, For 1 dose Start: 03-01-2024 End: 03-06-2024 take 2 tablets by mouth every six hours as needed acetaminophen (TYLENOL) 500 mg tablet Take 2 tablets (1,000 mg total) by mouth every 6 (six) hours if needed for mild pain for up to 5 days. 30 tablet 03/01/2024 03/06/2024 Active Start: 02-09-2024 End: 02-09-2024 take 1 tablet by mouth every six hours as needed 650 mg, Oral, EVERY 6 HOURS NEEDED, Starting on Wed02/09/24 at 0912, Until Wed02/09/24 at 1752, Mild Pain, Maximum dose of acetaminophen is 4000 mg from all sources in 24 hours. Insulin lispro (HUMALOG) injection (1 source) Start: 02-09-2024 End: 02-09-2024 Insulin lispro (HUMALOG) injection nicotine 4 mg chewing gum (1 source) Cholinergic Nicotinic Agonist Start: 02-09-2024 End: 02-09-2024 4 mg, Oral, ADMINISTER DIRECTED, Starting on Wed02/09/24 at 0912, Until Wed02/09/24 at 1752, Smoking cessation, May have 1 piece of gum every 1-2 hours with maximum of 24 pieces in 24 hours. Patient may self-administer. OLANZapine (zyPREXA ZYDIS) disintegrating tablet 10 mg (1 source) Start: 02-09-2024 End: 02-09-2024 take 1 tablet by mouth every four hours as needed OLANZapine (zyPREXA ZYDIS) disintegrating tablet 10 mg 50 ml sodium chloride 9 mg/ml injection (1 source) Start: 02-18-2021 End: 02-18-2021 0.9 % sodium chloride bolus Problems Active Problems Problem Classification Problem Date Documented Date Episodic/Chronic Administrative/social admission (2 sources) Homeless; Translations: [Homelessness] 01-07-2024 Episodic Anxiety disorders (2 sources) Anxiety; Translations: [Anxiety disorder, unspecified] Onset: 01-07-2024 01-07-2024 Chronic Chronic ulcer of skin (1 source) Non-pressure chronic ulcer of other part of right foot with unspecified severity; Translations: [Non-pressure chronic ulcer of other part of right foot with unspecified severity] Onset: 01-06-2024 Chronic Diabetes mellitus with complications (13 sources) Type 2 diabetes mellitus in obese; Translations: [Type 2 diabetes mellitus with other specified complication] Onset: 02-19-2024 03-25-2023 Chronic Diabetes mellitus without complication (4 sources) Hyperglycemia; Translations: [Hyperglycemia, unspecified] Onset: 01-06-2024 Episodic Mood disorders (2 sources) Mood disorders; Translations: [Depression, unspecified] Onset: 02-19-2024 Nonspecific chest pain (1 source) Chest pain; Translations: [Chest pain, unspecified] Episodic Other aftercare (2 sources) 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; Translations: [prison (current) use of insulin] Onset: 02-19-2024 Episodic Other connective tissue disease (1 source) Muscle pain; Translations: [Myalgia, unspecified site] 03-01-2024 Episodic Other connective tissue disease (1 source) Myalgia, unspecified site; Translations: [Myalgia, unspecified site] Onset: 03-01-2024 Episodic Other injuries and conditions due to external causes (1 source) Immersion foot, unspecified foot, initial encounter; Translations: [Immersion foot, unspecified foot, initial encounter] Onset: 01-06-2024 Episodic Other non-traumatic joint disorders (2 sources) Pain in left shoulder; Translations: [Pain in joint, shoulder region] Onset: 03-17-2024 03-17-2024 Episodic Other non-traumatic joint disorders (2 sources) Pain in unspecified joint; Translations: [Pain in unspecified joint] Onset: 03-07-2024 Episodic Residual codes; unclassified (4 sources) Noncompliance with medication regimen; Translations: [Noncompliance with medication regimen] 03-25-2023 Episodic Substance-related disorders (3 sources) Smoker; Translations: [Nicotine dependence, unspecified, uncomplicated] 04-13-2023 Chronic Suicide and intentional self-inflicted injury (7 sources) Suicidal thoughts; Translations: [Suicidal ideations] Onset: 02-09-2024 02-09-2024 Episodic Unclassified (5 sources) Homelessness unspecified; Translations: [Homelessness unspecified] Onset: 01-07-2024 Past or Other Problems Problem Classification Problem Date Documented Da te Episodic/Chronic Acute bronchitis (2 sources) Acute bronchitis; Translations: [Acute bronchitis, unspecified] Onset: 09-29-2023 09-29-2023 Episodic Unclassified (4 sources) Homelessness unspecified; Translations: [Homelessness unspecified] Onset: 02-08-2024 Results Test Name Value Interpretation Reference Range Facility Absolute lymphocyte countOrd ered By: [facility] on 04-16-2025 Lymphocytes Auto (Unsp spec) [#/Vol] 1.58 10*3/uL 0.83-4.51 [facility] Absolute neutrophil countOrd ered By: [facility] on 04-16-2025 Neutrophils (Bld) [#/Vol] 3.3 10*3/uL 2.0-7.7 [facility] Anion gap in Serum or Plasma Ordered By: nelsy Henry on 04-16-2025 Anion gap [Moles/Vol] 12 mmol/L 5-15 [facility] Automated lymphocyte count a s percentage of total leukocytesOrdered By: [facility] on 04-16-2025 Lymphocytes/100 WBC Auto (Unsp spec) 29.4 % 19-41 [facility] BUN/creatinine ratioOrdered By: [facility] on 04-16-2025 Urea nitrogen/Creatinine [Mass ratio] 13.7 mg/mg 10-20 [facility] Basophil percentageOrdered B y: [facility] on 04-16-2025 Basophils/100 WBC (Bld) 0.9 % 0-1 [facility] Bilirubin, totalOrdered By: [facility] on 04-16-2025 Bilirubin [Mass/Vol] 0.62 mg/dL 0.00-1.30 [facility] CBC W/Diff, Automatedon 07-2 -2024 Absolute Lymph 1.58 X10 3/uL Normal 0.83-4.51 [facility] Comment on above: Performed By: #### L 500.4100, L501.9520, L500.4050, L100.0100, L502.0500 #### [facility] [address] [place], [address] Absolute Neut 3.3 X10 3/uL Normal 2.0-7.7 [facility] Comment on above: Performed By: #### L 500.4100, L501.9520, L500.4050, L100.0100, L502.0500 #### [facility] [address] [place], [address] Basophils/100 WBC (Bld) 0.9 % Normal 0-1 [facility] Comment on above: Performed By: #### L 500.4100, L501.9520, L500.4050, L100.0100, L502.0500 #### [facility] [address] [place], [address] Eosinophils/100 WBC (Bld) 2.4 % Normal 0-5 [facility] Comment on above: Performed By: #### L 500.4100, [id number], L500.4050, L100.0100, L502.0500 #### [facility] [address] [place], [address] Erythrocyte distribution width (RBC) [Ratio] 13.2 % Normal 11.6-14.6 [facility] Comment on above: Performed By: #### L 500.4100, L501.9520, L500.4050, L100.0100, L502.0500 #### [facility] [address] [place], [address] Hematocrit (Bld) [Volume fraction] 37.3 % Normal 37-47 [facility] Comment on above: Performed By: #### L 500.4100, [id number], L500.4050, L100.0100, L502.0500 #### [facility] [address] [place], [address] Hemoglobin (Bld) [Mass/Vol] 13.1 g/dL Normal 12.0-15.0 [facility] Comment on above: Performed By: #### L 500.4100, L501.9520, L500.4050, L100.0100, L502.0500 #### [facility] [address] [place], [address] IG% 0.200 Normal 0.0-0.9 [facility] Comment on above: Result Comment: IG% - Immature Granulocytes (promyelocytes, myelocytes and metamyelocytes) > 1% indicates that a LEFT SHIFT is Present. Performed By: #### L 500.4100, L501.9520, L500.4050, L100.0100, L502.0500 #### [facility] [address] [place], [address] Lymphocytes/100 WBC (Bld) 29.4 % Normal 19-41 [facility] Comment on above: Performed By: #### L 500.4100, [id number], L500.4050, L100.0100, L502.0500 #### [facility] [address] [place], [address] MCH (RBC) [Entitic mass] 29.6 pg Normal 27.0-32.0 [facility] Comment on above: Performed By: #### L 500.4100, [id number], L500.4050, L100.0100, L502.0500 #### [facility] [address] [place], [address] MCHC (RBC) [Mass/Vol] 35.1 g/dL Normal 32-36 [facility] Comment on above: Performed By: #### L 500.4100, [id number], L500.4050, L100.0100, L502.0500 #### [facility] [address] [place], [address] MCV (RBC) [Entitic vol] 84.4 fL Normal 81-99 [facility] Comment on above: Performed By: #### L 500.4100, [id number], L500.4050, L100.0100, L502.0500 #### [facility] [address] [place], [address] Monocytes/100 WBC (Bld) 6.1 % Normal 0-10 [facility] Comment on above: Performed By: #### L 500.4100, [id number], L500.4050, L100.0100, L502.0500 #### [facility] [address] [place], [address] Neutrophils/100 WBC (Bld) 61.0 % Normal 47-70 [facility] Comment on above: Performed By: #### L 500.4100, L501.9520, L500.4050, L100.0100, L502.0500 #### [facility] [address] [place], [address] Nucleated RBC (Bld) [#/Vol] 0 10*3/uL Normal 0-5 [facility] Comment on above: Performed By: #### L 500.4100, [id number], L500.4050, L100.0100, L502.0500 #### [facility] [address] [place], [address] Platelet mean volume (Bld) [Entitic vol] 9.9 fL Normal 6.2-12.0 [facility] Comment on above: Performed By: #### L 500.4100, L501.9520, L500.4050, L100.0100, L502.0500 #### [facility] [address] [place], [address] Platelets (Bld) [#/Vol] 197 10*3/uL Normal 150-450 [facility] Comment on above: Performed By: #### L 500.4100, [id number], L500.4050, L100.0100, L502.0500 #### [facility] [address] [place], [address] RBC (Bld) [#/Vol] 4.42 10*6/uL Normal 4.2-5.4 [facility] Comment on above: Performed By: #### L 500.4100, [id number], L500.4050, L100.0100, L502.0500 #### [facility] [address] [place], [address] RDW SD 39.9 fl Normal 35.1-43.9 [facility] Comment on above: Performed By: #### L 500.4100, L501.9520, L500.4050, L100.0100, L502.0500 #### [facility] [address] [place], [address] WBC (Bld) [#/Vol] 5.4 10*3/uL Normal 4.4-11.0 [facility] Comment on above: Performed By: #### L 500.4100, [id number], L500.4050, L100.0100, L502.0500 #### [facility] [address] [place], [address] Calculated very low density lipoprotein (VLDL) cholesterol measurementOrdered By: Rhonda Henry on 04-16-2025 Calculated very low density lipoprotein (VLDL) cholesterol measurement 141 mg/dL High 5-40 [facility] Carbon dioxide, total [Moles /volume] in Central venous bloodOrdered By: Rhonda Henry on 04-16-2025 CO2 [Moles/Vol] 20.7 mmol/L Low 21.0-32.0 [facility] Chloride assayOrdered By: Nato whittington Carl on 04-16-2025 Chloride [Moles/Vol] 99 mmol/L 98-108 [facility] Comprehensive Metabolic Prof ilon 04-16-2025 Albumin [Mass/Vol] 4.1 g/dL Normal 3.5-5.0 [facility] Comment on above: Performed By: #### L 500.4100, L501.9520, L500.4050, L100.0100, L502.0500 #### [facility] [address] [place], [address] Albumin/Globulin [Mass ratio] 1.4 {ratio} Normal 0.9-2.4 [facility] Comment on above: Performed By: #### L 500.4100, L501.9520, L500.4050, L100.0100, L502.0500 #### [facility] [address] [place], [address] ALK PHOS 97 U/L Normal 35-104 [facility] Comment on above: Performed By: #### L 500.4100, L501.9520, L500.4050, L100.0100, L502.0500 #### [facility] [address] [place], [address] ALT [Catalytic activity/Vol] 18 U/L Normal <=34 [facility] Comment on above: Performed By: #### L 500.4100, L501.9520, L500.4050, L100.0100, L502.0500 #### [facility] [address] [place], [address] AST [Catalytic activity/Vol] 16 U/L Normal <=31 [facility] Comment on above: Performed By: #### L 500.4100, L501.9520, L500.4050, L100.0100, L502.0500 #### [facility] [address] [place], [address] Bilirubin [Mass/Vol] 0.62 mg/dL Normal 0.00-1.30 [facility] Comment on above: Performed By: #### L 500.4100, [id number], L500.4050, L100.0100, L502.0500 #### [facility] [address] [place], [address] BUN/CRE 13.7 RATIO Normal 10-20 [facility] Comment on above: Performed By: #### L 500.4100, [id number], L500.4050, L100.0100, L502.0500 #### [facility] [address] [place], [address] Calcium [Mass/Vol] 9.1 mg/dL Normal 7.6-11.0 [facility] Comment on above: Performed By: #### L 500.4100, [id number], L500.4050, L100.0100, L502.0500 #### [facility] [address] [place], [address] Chloride [Moles/Vol] 99 mmol/L Normal 98-108 [facility] Comment on above: Performed By: #### L 500.4100, [id number], L500.4050, L100.0100, L502.0500 #### [facility] [address] [place], [address] CO2 [Moles/Vol] 20.7 mmol/L Low 21.0-32.0 [facility] Comment on above: Performed By: #### L 500.4100, [id number], L500.4050, L100.0100, L502.0500 #### [facility] [address] [place], [address] Creatinine [Mass/Vol] 0.73 mg/dL Normal 0.70-1.20 [facility] Comment on above: Performed By: #### L 500.4100, L501.9520, L500.4050, L100.0100, L502.0500 #### [facility] [address] [place], [address] GAP 12 Normal 5-15 [facility] Comment on above: Performed By: #### L 500.4100, L501.9520, L500.4050, L100.0100, L502.0500 #### [facility] [address] [place], [address] GFR/1.73 sq M.predicted among non-blacks MDRD (S/P/Bld) [Vol rate/Area] 104 mL/min/{1.73_m2} Normal >60 [facility] Comment on above: Result Comment: mL/m in/1.73m2 CKD-EPI Creatinine Equation (2020) Performed By: #### L 500.4100, L501.9520, L500.4050, L100.0100, L502.0500 #### [facility] [address] [place], [address] Globulin (S) [Mass/Vol] 2.9 g/dL Normal 2.2-4.2 [facility] Comment on above: Performed By: #### L 500.4100, L501.9520, L500.4050, L100.0100, L502.0500 #### [facility] [address] [place], [address] Glucose [Mass/Vol] 485 mg/dL Invalid Interpretation Code 70-99 [facility] Comment on above: Result Comment: Crit ical Result(s) Called at: by:??Results read back by same. ADRIANNE NGUYEN LEFT VOICEMAIL 04/16/25 @ 0688 AND NOTE FOR FIRST SHIFT Performed By: #### L 500.4100, L501.9520, L500.4050, L100.0100, L502.0500 #### [facility] [address] [place], [address] Potassium [Moles/Vol] 4.3 mmol/L Normal 3.3-5.1 [facility] Comment on above: Performed By: #### L 500.4100, L501.9520, L500.4050, L100.0100, L502.0500 #### [facility] [address] [place], [address] Sodium [Moles/Vol] 132 mmol/L Low 133-145 [facility] Comment on above: Performed By: #### L 500.4100, L501.9520, L500.4050, L100.0100, L502.0500 #### [facility] [address] [place], [address] T PROT 7.0 g/dL Normal 5.9-8.4 [facility] Comment on above: Performed By: #### L 500.4100, L501.9520, L500.4050, L100.0100, L502.0500 #### [facility] [address] [place], [address] Urea nitrogen [Mass/Vol] 10 mg/dL Normal 4-19 [facility] Comment on above: Performed By: #### L 500.4100, L501.9520, L500.4050, L100.0100, L502.0500 #### [facility] [address] [place], [address] Eosinophil percentageOrdered By: Zebulun Beam on 04-16-2025 Eosinophils/100 WBC (Bld) 2.4 % 0-5 [facility] Erythrocyte distribution wid th ratioOrdered By: Zebulun Beam on 04-16-2025 Erythrocyte distribution width (RBC) [Ratio] 13.2 % 11.6-14.6 [facility] Erythrocyte distribution wid th standard deviationOrdered By: Rhonda Henry on 04-16-2025 Erythrocyte distribution width (RBC) [Ratio] 39.9 fl 35.1-43.9 [facility] Glomerular filtration rate ( GFR) estimation/1.73 sq m using serum, plasma, or whole bOrdered By: Rhonda Henry on 04-16-2025 GFR/1.73 sq M.predicted among non-blacks MDRD (S/P/Bld) [Vol rate/Area] 104 mL/min/{1.73_m2} >60 [facility] Comment on above: mL/min/1.73m2 CKD-EP I Creatinine Equation (2020) Hematocrit Auto (Bld) [Volum e fraction]Ordered By: Rhonda Henry on 04-16-2025 Hematocrit (Bld) [Volume fraction] 37.3 % 37-47 [facility] Hemoglobin measurementOrdere d By: Rhonda Henry on 04-16-2025 Hemoglobin (Bld) [Mass/Vol] 13.1 g/dL 12.0-15.0 [facility] Immature granulocytes/100 WB C Auto (Bld)Ordered By: Rhonda Henry on 04-16-2025 Immature granulocytes/100 WBC (Bld) 0.200 % 0.0-0.9 [facility] Comment on above: IG% - Immature Granu locytes (promyelocytes, myelocytes and metamyelocytes) > 1% indicates that a LEFT SHIFT is Present. LDL calc ser/plasOrdered By: Rhonda Henry on 04-16-2025 Cholesterol in LDL [Mass/Vol] 67 mg/dL [facility] Comment on above: Hyhvdmpjax=338-506 m g/dL & Higher Svgy=315 mg/dL or greater Laboratory - Chemistry and C hemistry - challengeOrdered By: Rhonda Henry on 04-16-2025 AST [Catalytic activity/Vol] 16 U/L <32 [facility] Lipid Profileon 04-16-2025 CHOL:HDL 6.06 Normal [facility] Comment on above: Performed By: #### L 500.4100, L501.9520, L500.4050, L100.0100, L502.0500 #### [facility] [address] [place], [address] Cholesterol [Mass/Vol] 249 mg/dL High <=200 [facility] Comment on above: Result Comment: Chol esterol level, Desirable <200 mg/dL Borderline high cholesterol 200-239 mg/dL High cholesterol >=240 mg/dL Recommendations of the NCEP Adult Treatment Panel for the following risk-cutoff thresholds for the [place] population. Performed By: #### L 500.4100, L501.9520, L500.4050, L100.0100, L502.0500 #### [facility] [address] [place], [address] Cholesterol in HDL [Mass/Vol] 41 mg/dL Normal [facility] Comment on above: Result Comment: Abby onal Cholesterol Education Program (NCEP) guidelines: <40 mg/dL: Low HDL-cholesterol (major risk factor for CHD) >= 60 mg/dL: High HDL-cholesterol (negative risk factor for CHD) HDL-cholesterol is affected by a number of factors, e.g. smoking, exercise, hormones, sex and age. Performed By: #### L 500.4100, L501.9520, L500.4050, L100.0100, L502.0500 #### [facility] [address] [place], [address] Cholesterol in LDL [Mass/Vol] 67 mg/dL Normal [facility] Comment on above: Result Comment: Bord vhjiot=615-219 mg/dL Higher Rxcb=776 mg/dL or greater Performed By: #### L 500.4100, L501.9520, L500.4050, L100.0100, L502.0500 #### [facility] [address] [place], [address] Cholesterol in VLDL [Mass/Vol] 141 mg/dL High 5-40 [facility] Comment on above: Performed By: #### L 500.4100, L501.9520, L500.4050, L100.0100, L502.0500 #### [facility] [address] [place], [address] Triglyceride [Mass/Vol] 703 mg/dL High [facility] Comment on above: Result Comment: The drugs N-Acetylcysteine and Metamizole may falsely depress this assay. Normal range: <150 mg/dL Borderline High: 150-199 mg/dL High: 200-499 mg/dL Very High: >500 mg/dL Performed By: #### L 500.4100, L501.9520, L500.4050, L100.0100, L502.0500 #### [facility] [address] [place], [address] MCV (mean corpuscular volume ) determinationOrdered By: Zebulun Beam on 04-16-2025 MCV (RBC) [Entitic vol] 84.4 fL 81-99 [facility] Mean corpuscular hemoglobin (MCH) determinationOrdered By: Zebulun Beam on 04-16-2025 MCH (RBC) [Entitic mass] 29.6 pg 27.0-32.0 [facility] Mean corpuscular hemoglobin concentration (MCHC) determinationOrdered By: Zebulun Beam on 04-16-2025 MCHC (RBC) [Mass/Vol] 35.1 g/dL 32-36 [facility] Mean platelet volume determi nationOrdered By: Zebulun Beam on 04-16-2025 Platelet mean volume (Bld) [Entitic vol] 9.9 fL 6.2-12.0 [facility] Microalbumin,Random Urineon 04-16-2025 MICROALBUMIN,UR < 12.0 Normal <20 mg/L [facility] Comment on above: Performed By: #### L 500.4100, L501.9520, L500.4050, L100.0100, L502.0500 #### [facility] [address] [place], [address] Monocyte percentageOrdered B y: Zebulun Beam on 04-16-2025 Monocytes/100 WBC (Bld) 6.1 % 0-10 [facility] Neutrophil percentageOrdered By: Rhonda Henry on 04-16-2025 Neutrophils/100 WBC (Bld) 61.0 % 47-70 [facility] Nucleated red blood cell per centageOrdered By: Rhonda Henry on 04-16-2025 Nucleated RBC/100 WBC (Bld) [Ratio] 0 % 0-5 [facility] Platelet countOrdered By: Nato Henry on 04-16-2025 Platelets (Bld) [#/Vol] 197 10*3/uL 150-450 [facility] Potassium measurement (mass/ volume)Ordered By: Rhonda Henry on 04-16-2025 Potassium (Unsp spec) [Mass/Vol] 4.3 mmol/L 3.3-5.1 [facility] RBC Auto (Bld) [#/Vol]Ordere d By: Rhonda Henry on 04-16-2025 RBC (Bld) [#/Vol] 4.42 10*6/uL 4.2-5.4 [facility] Screening total cholesterol/ high density lipoprotein (HDL) cholesterol ratioOrdered By: Rhonda Henry on 04-16-2025 Cholesterol.total/Chol esterol in HDL [Mass ratio] 6.06 {ratio} [facility] Serum creatinine measurement (mass/volume)Ordered By: Rhonda Henry on 04-16-2025 Creatinine [Mass/Vol] 0.73 mg/dL 0.70-1.20 [facility] Serum globulin measurementOr dered By: Rhonda Henry on 04-16-2025 Globulin (S) [Mass/Vol] 2.9 g/dL 2.2-4.2 [facility] Serum glucose measurement (m ass/volume)Ordered By: Rhonda Henry on 04-16-2025 Glucose [Mass/Vol] 485 mg/dL Critically high 70-99 [facility] Comment on above: Critical Result(s) C alled at: by: Results read back by same.ADRIANNE NGUYEN LEFT VOICEMAIL 04/16/25 @ 3706 AND NOTE FOR FIRST SHIFT Serum or plasma alanine logan otransferase (ALT) measurementOrdered By: Rhonda Henry on 04-16-2025 ALT [Catalytic activity/Vol] 18 U/L <35 [facility] Serum or plasma albumin rolando urement (mass/volume)Ordered By: Rhonda Beam on 04-16-2025 Albumin [Mass/Vol] 4.1 g/dL 3.5-5.0 [facility] Serum or plasma albumin/glob ulin mass ratioOrdered By: [facility] Beam on 04-16-2025 Albumin/Globulin [Mass ratio] 1.4 {ratio} 0.9-2.4 [facility] Serum or plasma alkaline yadi sphatase measurementOrdered By: Selinamna Beam on 04-16-2025 ALP [Catalytic activity/Vol] 97 U/L 35-104 [facility] Serum or plasma calcium rolando urement (mass/volume)Ordered By: Rhonda Beam on 04-16-2025 Calcium [Mass/Vol] 9.1 mg/dL 7.6-11.0 [facility] Serum or plasma cholesterol in HDL measurement (mass/volume)Ordered By: Rhonda Henry on 04-16-2025 Cholesterol in HDL [Mass/Vol] 41 mg/dL >40 [facility] Comment on above: National Cholesterol Education Program (NCEP) guidelines:<40 mg/dL: Low HDL-cholesterol (major risk factor for CHD)>= 60 mg/dL: High HDL-cholesterol (negative risk factor for CHD)HDL-cholesterol is affected by a number of factors, e.g. smoking, exercise, hormones, sex and age. Serum or plasma cholesterol measurement (mass/volume)Ordered By: Rhonda Henry on 04-16-2025 Cholesterol [Mass/Vol] 249 mg/dL High <201 [facility] Comment on above: Cholesterol level, D esirable <200 mg/dLBorderline high cholesterol 200-239 mg/dLHigh cholesterol >=240 mg/dLRecommendations of the NCEP Adult Treatment Panel for the following risk-cutoff thresholds for the [place] population. Serum or plasma urea nitroge n measurement (mass/volume)Ordered By: Rhonda Beam on 04-16-2025 Urea nitrogen [Mass/Vol] 10 mg/dL 4-19 [facility] Sodium levelOrdered By: Selin Henry on 04-16-2025 Sodium [Moles/Vol] 132 mmol/L Low 133-145 [facility] TSH DL <= 0.005 mIU/L QnOrde red By: Rhonda Henry on 04-16-2025 TSH Qn 1.480 uIU/mL 0.300-4.200 [facility] Thyroid Stim Hormone (TSH)on 04-16-2025 TSH 1.480 uIU/mL Normal 0.300-4.200 [facility] Comment on above: Performed By: #### L 500.4100, L501.9520, L500.4050, L100.0100, L502.0500 #### [facility] [address] [place], [place], [id number] Total proteinOrdered By: Galen Henry on 04-16-2025 Protein [Mass/Vol] 7.0 g/dL 5.9-8.4 [facility] Triglycerides measurementOrd ered By: Rhonda Henry on 04-16-2025 Triglyceride [Mass/Vol] 703 mg/dL High <199 [facility] Comment on above: The drugs N-Acetylcy steine and Metamizole may falsely depress this assay. Normal range: <150 mg/dLBorderline High: 150-199 mg/dLHigh: 200-499 mg/dLVery High: >500 mg/dL Urine albumin measurement [facility] detection limit of 20 mg/L or less (mass/volume)Ordered By: Rhonda Henry on 04-16-2025 Albumin DL <= 20 mg/L (U) [Mass/Vol] < 12.0 mg/L <20 mg/L [facility] White blood cell (WBC) count Ordered By: Rhonda Henry on 04-16-2025 WBC (Bld) [#/Vol] 5.4 10*3/uL 4.4-11.0 [facility] CBC W/Diff, Automatedon 10-28 Absolute Lymph 2.10 X10 3/uL Normal 0.83-4.51 [facility] Comment on above: Performed By: #### L 100.0100, L500.4050, L500.4100, L501.9520, L502.0500 #### [facility] [address] [place], [address] Absolute Neut 3.9 X10 3/uL Normal 2.0-7.7 [facility] Comment on above: Performed By: #### L 100.0100, L500.4050, L500.4100, L501.9520, L502.0500 #### [facility] [address] [place], [address] Basophils/100 WBC (Bld) 1.1 % High 0-1 [facility] Comment on above: Performed By: #### L 100.0100, L500.4050, L500.4100, L501.9520, L502.0500 #### [facility] [address] [place], [address] Eosinophils/100 WBC (Bld) 4.9 % Normal 0-5 [facility] Comment on above: Performed By: #### L 100.0100, L500.4050, L500.4100, L501.9520, L502.0500 #### [facility] [address] [place], [address] Erythrocyte distribution width (RBC) [Ratio] 12.3 % Normal 11.6-14.6 [facility] Comment on above: Performed By: #### L 100.0100, L500.4050, L500.4100, L501.9520, L502.0500 #### [facility] [address] [place], [address] Hematocrit (Bld) [Volume fraction] 40.6 % Normal 37-47 [facility] Comment on above: Performed By: #### L 100.0100, L500.4050, L500.4100, L501.9520, L502.0500 #### [facility] [address] [place], [address] Hemoglobin (Bld) [Mass/Vol] 14.1 g/dL Normal 12.0-15.0 [facility] Comment on above: Performed By: #### L 100.0100, L500.4050, L500.4100, L501.9520, L502.0500 #### [facility] [address] [place], [address] IG% 0.300 Normal 0.0-0.9 [facility] Comment on above: Result Comment: IG% - Immature Granulocytes (promyelocytes, myelocytes and metamyelocytes) > 1% indicates that a LEFT SHIFT is Present. Performed By: #### L 100.0100, L500.4050, L500.4100, L501.9520, L502.0500 #### [facility] [address] [place], [address] Lymphocytes/100 WBC (Bld) 30.0 % Normal 19-41 [facility] Comment on above: Performed By: #### L 100.0100, L500.4050, L500.4100, L501.9520, L502.0500 #### [facility] [address] [place], [address] MCH (RBC) [Entitic mass] 29.2 pg Normal 27.0-32.0 [facility] Comment on above: Performed By: #### L 100.0100, L500.4050, L500.4100, L501.9520, L502.0500 #### [facility] [address] [place], [address] MCHC (RBC) [Mass/Vol] 34.7 g/dL Normal 32-36 [facility] Comment on above: Performed By: #### L 100.0100, L500.4050, L500.4100, L501.9520, L502.0500 #### [facility] [address] [place], [address] MCV (RBC) [Entitic vol] 84.1 fL Normal 81-99 [facility] Comment on above: Performed By: #### L 100.0100, L500.4050, L500.4100, L501.9520, L502.0500 #### [facility] [address] [place], [address] Monocytes/100 WBC (Bld) 7.3 % Normal 0-10 [facility] Comment on above: Performed By: #### L 100.0100, L500.4050, L500.4100, L501.9520, L502.0500 #### [facility] [address] [place], [address] Neutrophils/100 WBC (Bld) 56.4 % Normal 47-70 [facility] Comment on above: Performed By: #### L 100.0100, L500.4050, L500.4100, L501.9520, L502.0500 #### [facility] [address] [place], [address] Nucleated RBC (Bld) [#/Vol] 0 10*3/uL Normal 0-5 [facility] Comment on above: Performed By: #### L 100.0100, L500.4050, L500.4100, L501.9520, L502.0500 #### [facility] [address] [place], [address] Platelet mean volume (Bld) [Entitic vol] 9.6 fL Normal 6.2-12.0 [facility] Comment on above: Performed By: #### L 100.0100, L500.4050, L500.4100, L501.9520, L502.0500 #### [facility] [address] [place], [address] Platelets (Bld) [#/Vol] 236 10*3/uL Normal 150-450 [facility] Comment on above: Performed By: #### L 100.0100, L500.4050, L500.4100, L501.9520, L502.0500 #### [facility] [address] [place], [address] RBC (Bld) [#/Vol] 4.83 10*6/uL Normal 4.2-5.4 [facility] Comment on above: Performed By: #### L 100.0100, L500.4050, L500.4100, L501.9520, L502.0500 #### [facility] [address] [place], [address] RDW SD 37.2 fl Normal 35.1-43.9 [facility] Comment on above: Performed By: #### L 100.0100, L500.4050, L500.4100, L501.9520, L502.0500 #### [facility] [address] [place], [address] WBC (Bld) [#/Vol] 7.0 10*3/uL Normal 4.4-11.0 [facility] Comment on above: Performed By: #### L 100.0100, L500.4050, L500.4100, L501.9520, L502.0500 #### [facility] [address] [place], [address] Comprehensive Metabolic [facility] 11-07-2024 Albumin [Mass/Vol] 3.7 g/dL Normal 3.2-5.0 [facility] Comment on above: Performed By: #### L 100.0100, L500.4050, L500.4100, L501.9520, L502.0500 #### [facility] [address] [place], [address] Albumin/Globulin [Mass ratio] 0.9 {ratio} Normal 0.9-2.4 [facility] Comment on above: Performed By: #### L 100.0100, L500.4050, L500.4100, L501.9520, L502.0500 #### [facility] [address] [place], [address] ALK P 101 U/L Normal 45-117 [facility] Comment on above: Performed By: #### L 100.0100, L500.4050, L500.4100, L501.9520, L502.0500 #### [facility] [address] [place], [address] ALT [Catalytic activity/Vol] 28 U/L Normal 13-56 [facility] Comment on above: Performed By: #### L 100.0100, L500.4050, L500.4100, L501.9520, L502.0500 #### [facility] [address] [place], [address] AST [Catalytic activity/Vol] 13 U/L Low 15-37 [facility] Comment on above: Performed By: #### L 100.0100, L500.4050, L500.4100, L501.9520, L502.0500 #### [facility] [address] [place], [address] Bilirubin [Mass/Vol] 0.50 mg/dL Normal 0.20-1.00 [facility] Comment on above: Result Comment: For patients on eltrombopag therapy, use of Dimension [place] TBIL is not recommended. Performed By: #### L 100.0100, L500.4050, L500.4100, L501.9520, L502.0500 #### [facility] [address] [place], [address] BUN/CRE 27.5 RATIO High 10-20 [facility] Comment on above: Performed By: #### L 100.0100, L500.4050, L500.4100, L501.9520, L502.0500 #### [facility] [address] [place], [address] CA,Total 9.7 mg/dL Normal 8.5-10.1 [facility] Comment on above: Performed By: #### L 100.0100, L500.4050, L500.4100, L501.9520, L502.0500 #### [facility] [address] [place], [address] Chloride [Moles/Vol] 102 mmol/L Normal 98-107 [facility] Comment on above: Performed By: #### L 100.0100, L500.4050, L500.4100, L501.9520, L502.0500 #### [facility] [address] [place], [address] CO2 [Moles/Vol] 26.0 mmol/L Normal 21.0-32.0 [facility] Comment on above: Performed By: #### L 100.0100, L500.4050, L500.4100, L501.9520, L502.0500 #### [facility] [address] [place], [address] Creatinine [Mass/Vol] 0.76 mg/dL Normal 0.55-1.02 [facility] Comment on above: Result Comment: The validity of the calculated GFR GFRAA in patients over 70 years has not been determined. Clinical correlation is essential. Performed By: #### L 100.0100, L500.4050, L500.4100, L501.9520, L502.0500 #### [facility] [address] [place], [address] EST GFR - AA 105 mL/min Normal >60 [facility] Comment on above: Result Comment: Afri can Somali GFR Calc Performed By: #### L 100.0100, L500.4050, L500.4100, L501.9520, L502.0500 #### [facility] [address] [place], [address] GAP 7 Normal 5-15 [facility] Comment on above: Performed By: #### L 100.0100, L500.4050, L500.4100, L501.9520, L502.0500 #### [facility] [address] [place], [address] GFR/1.73 sq M.predicted among non-blacks MDRD (S/P/Bld) [Vol rate/Area] 87 mL/min/{1.73_m2} Normal >60 [facility] Comment on above: Result Comment: Non- GFR Calc Performed By: #### L 100.0100, L500.4050, L500.4100, L501.9520, L502.0500 #### [facility] [address] [place], [address] Globulin (S) [Mass/Vol] 4.3 g/dL High 2.2-4.2 [facility] Comment on above: Performed By: #### L 100.0100, L500.4050, L500.4100, L501.9520, L502.0500 #### [facility] [address] [place], [address] Glucose [Mass/Vol] 318 mg/dL High 74-106 [facility] Comment on above: Result Comment: Gluc ose result greater than or equal to 200 mg/dL suggests DIABETES MELLITUS per A.D.A. criteria. Performed By: #### L 100.0100, L500.4050, L500.4100, L501.9520, L502.0500 #### [facility] [address] [place], [address] Potassium [Moles/Vol] 4.5 mmol/L Normal 3.5-5.1 [facility] Comment on above: Performed By: #### L 100.0100, L500.4050, L500.4100, L501.9520, L502.0500 #### [facility] [address] [place], [address] Sodium [Moles/Vol] 135 mmol/L Low 136-145 [facility] Comment on above: Performed By: #### L 100.0100, L500.4050, L500.4100, L501.9520, L502.0500 #### [facility] [address] [place], [address] T PROT 8.0 g/dL Normal 6.4-8.2 [facility] Comment on above: Performed By: #### L 100.0100, L500.4050, L500.4100, L501.9520, L502.0500 #### [facility] [address] [place], [address] Urea nitrogen [Mass/Vol] 21 mg/dL High 7-18 [facility] Comment on above: Performed By: #### L 100.0100, L500.4050, L500.4100, L501.9520, L502.0500 #### [facility] [address] [place], [address] Lipid Profileon 11-07-2024 Cholesterol [Mass/Vol] 265 mg/dL High 200 [facility] Comment on above: Result Comment: <200 mg/dL Desirable 200-240 mg/dL Borderline >240 mg/dL High Risk Performed By: #### L 100.0100, L500.4050, L500.4100, L501.9520, L502.0500 #### [facility] [address] [place], [address] Cholesterol in HDL [Mass/Vol] 54 mg/dL Normal [facility] Comment on above: Result Comment: The drugs N-Acetylcysteine and Metamizole may falsely depress this assay. Reference Range HDL <40 mg/dL Low HDL Cholesterol HDL >or= 60 mg/dL High HDL Cholesterol Performed By: #### L 100.0100, L500.4050, L500.4100, L501.9520, L502.0500 #### [facility] [address] [place], [address] LDL TNP Normal 0-130 [facility] Comment on above: Performed By: #### L 100.0100, L500.4050, L500.4100, L501.9520, L502.0500 #### [facility] [address] [place], [address] Triglyceride [Mass/Vol] 451 mg/dL High [facility] Comment on above: Result Comment: The drugs N-Acetylcysteine and Metamizole may falsely depress this assay. TRIGLYCERIDE IS GREATER THAN 400 mg/dL. LDL RESULT IS INVALID AND WILL NOT BE REPORTED. Serum Triglycerides Reference Interval Normal <150 mg/dL Borderline high 150 - 199 mg/dL High 200 - 499 mg/dL Very High > or = 500 mg/dL Performed By: #### L 100.0100, L500.4050, L500.4100, L501.9520, L502.0500 #### [facility] [address] [place], [address] VLDL TNP Normal 5-40 [facility] Comment on above: Performed By: #### L 100.0100, L500.4050, L500.4100, L501.9520, L502.0500 #### [facility] [address] [place], [address] Microalbumin,Random Urineon 11-07-2024 MICROALBUMIN,UR 14.8 mg/L Normal NO RANGE EST. [facility] Comment on above: Performed By: #### L 100.0100, L500.4050, L500.4100, L501.9520, L502.0500 #### [facility] [address] [place], [address] Thyroid Stim Hormone (TSH)on 11-07-2024 TSH 2.470 uIU/mL Normal 0.358-3.740 [facility] Comment on above: Performed By: #### L 100.0100, L500.4050, L500.4100, L501.9520, L502.0500 #### [facility] [address] [place], [address] ACETAMINOPHENon 09-05-2024 Acetaminophen [Mass/Vol] ug/mL Low 10.0 - 30.0 [facility] Comment on above: Performed By: #### 2 86056 #### [facility],[address] [place] [address] ALCOHOL-BLOOD MEDICALon 08-27 Ethanol [Mass/Vol] 13 mg/dL Normal 0 - 50 [facility] Comment on above: Performed By: #### 2 43778 #### [facility],[address] [place] [address] CBC + DIFFon 09-05-2024 Baso # 0.01 x10EE3/UL Normal 0.00 - 0.10 [facility] Comment on above: Performed By: #### 2 23453 #### [facility],[address] [place] [address]230 Basophils/100 WBC (Bld) 0.2 % Normal 0.0 - 2.0 [facility] Comment on above: Performed By: #### 2 16288 #### [facility],[address] [place] [address] 85033 CBC + DIFF Normal [facility] Comment on above: Result Comment: CBC- COMPLETE BLOOD COUNT Performed By: #### 2 78828 #### [facility],[address] [place] [address] 80850 EO # 0.10 x10EE3/UL Normal 0.00 - 0.50 [facility] Comment on above: Performed By: #### 2 89582 #### [place] [id number] Eosinophils/100 WBC (Bld) 1.6 % Normal 0.0 - 7.0 [facility] Comment on above: Performed By: #### 2 21107 #### [facility],[address] [place] [address] Erythrocyte distribution width (RBC) [Ratio] 13.1 % Normal 12.0 - 15.6 [facility] Comment on above: Performed By: #### 2 33734 #### [facility],[address] [place] [address] Hematocrit (Bld) [Volume fraction] 41.8 % Normal 34.0 - 46.0 [facility] Comment on above: Performed By: #### 2 31949 #### [facility],[address] [place] [address] Hemoglobin (Bld) [Mass/Vol] 14.5 g/dL Normal 12.0 - 16.0 [facility] Comment on above: Performed By: #### 2 48337 #### [facility],[address] [place] [address] 50858 Lymph # 1.61 x10EE3/UL Normal 0.80 - 2.80 [facility] Comment on above: Performed By: #### 2 36915 #### [facility],[address] [place], [place] [id number] Lymphocytes/100 WBC (Bld) 27.0 % Normal 20.0 - 45.0 [facility] Comment on above: Performed By: #### 2 83558 #### [facility],[address] [place] [address] 30418 MANUAL DIFF N/A Normal [facility] Comment on above: Performed By: #### 2 43422 #### [facility],[address] [place] [address] 36528 MCH (RBC) [Entitic mass] 30 pg Normal 27 - 33 [facility] Comment on above: Performed By: #### 2 44748 #### [facility],[address] [place] [address] MCHC 35 X10 3 Normal 32 - 36 [facility] Comment on above: Performed By: #### 2 29503 #### [facility],[address] [place], [place] [id number] MCV (RBC) [Entitic vol] 87 fL Normal 80 - 99 [facility] Comment on above: Performed By: #### 2 31465 #### [facility],[address] [place] [address] [place] # 0.29 x10EE3/UL Normal 0.20 - 1.00 [facility] Comment on above: Performed By: #### 2 04289 #### [facility],[address] [place] [address] MONOS % 4.9 % Normal 0.0 - 10.0 [facility] Comment on above: Performed By: #### 2 54062 #### [facility],[address] [place] [address] Morphology Fercho (Bld) [Interp] N/A Normal [facility] Comment on above: Performed By: #### 2 75201 #### [facility],[address] [place] [address] Neut # 3.95 x10EE3/UL Normal 1.50 - 7.10 [facility] Comment on above: Performed By: #### 2 12335 #### [facility],[address] [place] [address] Neutrophils/100 WBC (Bld) 66.2 % Normal 46.0 - 76.0 [facility] Comment on above: Performed By: #### 2 97940 #### [facility],[address] [place] [address] PLATELET 223 x10EE3/UL Normal 150 - 450 [facility] Comment on above: Performed By: #### 2 96266 #### [facility],[address] [place] [address] 16741 Platelet mean volume (Bld) [Entitic vol] 7.5 fL Normal 6.6 - 10.5 [facility] Comment on above: Result Comment: AUTO MATED DIFFERENTIAL Performed By: #### 2 01904 #### [facility],[address] [place] [address] 03581 RBC 4.81 x 10EE6/UL Normal 4.10 - 5.30 [facility] Comment on above: Performed By: #### 2 92310 #### [facility],[address] [place] [address]1639 WBC 6.0 x 10EE3/UL Normal 4.5 - 10.8 [facility] Comment on above: Performed By: #### 2 73048 #### [facility],[address] [place] [address]0486 CMP with eGFRon 09-05-2024 AGE 44 years Normal [facility] Comment on above: Performed By: #### 2 15984 #### [facility],[address] [place] [address] 71204 Albumin [Mass/Vol] 3.7 g/dL Normal 3.4 - 5.0 [facility] Comment on above: Performed By: #### 2 69861 #### [facility],[address] [place] [address] 47136 Albumin/Globulin [Mass ratio] 1.0 {ratio} Normal 0.9 - 1.6 [facility] Comment on above: Performed By: #### 2 70999 #### [facility],[address] [place] [address] 32947 ALK PHOS 127 U/L High 46 - 116 [facility] Comment on above: Performed By: #### 2 49733 #### [facility],[address] [place] [address] 76800 ALT [Catalytic activity/Vol] 21 U/L Normal 16 - 63 [facility] Comment on above: Performed By: #### 2 80339 #### [facility],[address] [place] [address] 55289 Anion gap [Moles/Vol] 15 mmol/L Normal 10 - 20 [facility] Comment on above: Performed By: #### 2 64306 #### [facility],[address] [place] [address] 69025 AST [Catalytic activity/Vol] 3 U/L Low 13 - 39 [facility] Comment on above: Performed By: #### 2 43055 #### [facility],[address] [place] [address] 53724 B/C RATIO 9 ratio Normal 0 - 30 [facility] Comment on above: Performed By: #### 2 17526 #### [facility],[address] [place] [address] 42202 Bilirubin [Mass/Vol] 0.6 mg/dL Normal 0.2 - 1.0 [facility] Comment on above: Performed By: #### 2 73275 #### [facility],[address] [place] [address] 51303 Calcium [Mass/Vol] 8.4 mg/dL Low 8.5 - 10.1 [facility] Comment on above: Performed By: #### 2 80289 #### [facility],[address] [place] [address] 86665 Chloride [Moles/Vol] 98 mmol/L Normal 98 - 107 [facility] Comment on above: Performed By: #### 2 98161 #### [facility],[address] [place] [address] 96186 CMP with eGFR Normal [facility] Comment on above: Result Comment: COMP REHENSIVE METABOLIC PANEL Performed By: #### 2 95954 #### [facility],[address] [place] [address] 16373 CO2 [Moles/Vol] 24.8 mmol/L Normal 21.0 - 32.0 [facility] Comment on above: Performed By: #### 2 32178 #### [facility],[address] [place] [address] 42559 Creatinine [Mass/Vol] 1.01 mg/dL Normal 0.55 - 1.02 [facility] Comment on above: Performed By: #### 2 04674 #### [facility],[address] [place] [address] 56276 eGFR 59 ML/MINUTE Low 60 - 999 [facility] Comment on above: Performed By: #### 2 87728 #### [facility],[address] [place] [address] 87191 GFR/1.73 sq M.predicted among non-blacks MDRD (S/P/Bld) [Vol rate/Area] mL/min/{1.73_m2} Normal 60 - 999 [facility] Comment on above: Result Comment: ACCO RDING TO THE NATIONAL KIDNEY DISEASE EDUCATION PROGRAM(NKDE), A NORMAL eGFR IS A VALUE GREATER THAN OR EQUAL TO 60 ML/MIN/1.73 SQ METERS. CHRONIC KIDNEY DISEASE: <60mL/MIN/1.73 SQ METERS KIDNEY FAILURE: <15mL/MIN/1.73 SQ METERS THIS TEST SHOULD ONLY BE USED FOR PATIENTS 18 YEARS OF AGE AND OLDER. Performed By: #### 2 69728 #### [facility],[address] [place] [address] 22426 Globulin (S) [Mass/Vol] 3.8 g/dL Normal 1.5 - 3.8 [facility] Comment on above: Performed By: #### 2 85441 #### [facility],[address] [place] [address] 90501 Glucose [Mass/Vol] 553 mg/dL Critically high 74 - 106 [facility] Comment on above: Result Comment: { CA LLED TO ER AT 0326 { READ BACK BY FANY TO AEL AT 0326 Performed By: #### 2 93635 #### [facility],[address] [place] [address] 53170 Potassium [Moles/Vol] 3.2 mmol/L Low 3.5 - 5.1 [facility] Comment on above: Performed By: #### 2 98834 #### [facility],[address] [place] [address] 21690 Protein [Mass/Vol] 7.5 g/dL Normal 6.4 - 8.2 [facility] Comment on above: Performed By: #### 2 91803 #### [facility],[address] [place] [address] Sodium [Moles/Vol] 135 mmol/L Low 136 - 145 [facility] Comment on above: Performed By: #### 2 69875 #### [facility],[address] [place] [address] Urea nitrogen [Mass/Vol] 9 mg/dL Normal 7 - 18 [facility] Comment on above: Performed By: #### 2 45577 #### [facility],[address] [place], [place] [address] DRUG SCREEN URINE MEDICon AMPHETAMINES Negative Normal [facility] Comment on above: Performed By: #### 2 05570 #### [facility],[address] [place] [address] 14502 B-DIAZEPINES Negative Normal [facility] Comment on above: Performed By: #### 2 49241 #### [facility],[address] [place] [address] 18410 BARBITURATES Negative Normal [facility] Comment on above: Performed By: #### 2 21801 #### [facility],[address] [place] [address] 34793 COCAINE Negative Normal [facility] Comment on above: Performed By: #### 2 02290 #### [facility],[address] [place] [address] 96002 DRUG SCREEN URINE MEDIC Normal [facility] Comment on above: Result Comment: DRUG SCREEN - URINE Performed By: #### 2 22575 #### [facility],[address] [place] [address] METHADONE Negative Normal [facility] Comment on above: Performed By: #### 2 36499 #### [facility],[address] [place], [place] [phone] OPIATES Negative Normal [facility] Comment on above: Performed By: #### 2 27714 #### [facility],[address] [place] [address] PCP Negative Normal [facility] Comment on above: Performed By: #### 2 44218 #### [facility],[address] [place] [address] THC Negative Normal [facility] Comment on above: Result Comment: MARIBEL ENTS RECEIVING PROTON PUMP INHIBITORS MAY DEMONSTRATE FALSE POSITIVE THC/CANNABINOID RESULTS. AN ALTERNATIVE CONFIRMATORY METHOD SHOULD BE CONSIDERED TO VERIFY POSITIVE RESULTS. Performed By: #### 2 52329 #### [facility],[address] [place] [address] ED MED ADMINISTRATION DETAIL on 09-05-2024 ED MED ADMINISTRATION DETAIL Marketing Assistant Manager [place] [address] [id number] 09/05/2024 Patient: SOPHIE MUNGUIA Sex: Female : 1980 Age: 44y MEASUREMENTS: Wt: 90.7 kg, Ht/Ishan: 61.0 in, BMI: 37.79 ALLERGIES: No known drug allergies Medication Ordered Medication Administration Date/Time IV NS 0.9 % 1000 01:56 09/05 IV NS 0.9 % 1000 mL started in bag#1 1000 mL at Started mL at 500 mL/hr 500 mL/hr via Site# 1. Allergies verified and confirmed 5 rights. Via 01:56 09/05/2024 (NOW x1) dial-a-flow. IV patency established. IV site checked: no pain, Bart Vincent, R.N. redness, or swelling. IV flushed thoroughly pre-medication Stopped administration. Information reviewed with patient including reason 04:16 09/05/2024 for taking this medication. Verbalizes understanding. - 01:57 Vita Noland R.N. Scanned 04:16 12 Medication Discontinued: bag #1. Total amount infused: 1000 mL. IV patency established. IV site checked: no pain, redness, or swelling. IV flushed thoroughly post-medication administration. - 04:16 Bart Kaur R.N. Zofran IVP 4 mg 01:57 12 Zofran IVP 4 mg given via Site# 1. Allergies verified Given (NOW x1) and confirmed 5 rights. IV patency established. IV site checked: no 01:57 09/05/2024 pain, redness, or swelling. IV flushed thoroughly pre-medication Bart Kaur R.N. administration. IVP given by cdw. Information reviewed with patient Scanned including reason for taking this medication. Verbalizes understanding. - 01:58 Bart Kaur R.N. 1 of 2 Marketing Assistant Manager Medication Ordered Medication Administration Date/Time metFORMIN 04:13 09/05 metFORMIN (Glucophage) PO 500 mg given. Given (Glucophage) PO Allergies verified and confirmed 5 rights. Information reviewed with 04:13 09/05/2024 500 mg (NOW x1) patient including reason for taking this medication. Verbalizes Bart Kaur R.N. understanding. - 04:15 Bart Kaur R.N. Scanned 2 of 2 Normal [facility] ED NURSES CLINICAL NOTEon ED NURSES CLINICAL NOTE Nurse Narrative Nurse Clinical [address] [address] [id number] 09/05/2024 Patient: SOPHIE MUNGUIA Sex: Female : 1980 Age: 44y Disposition: Discharge to Home Disposition Decision Time: 04:15 09/05/2024 Departure Time: 06:15 09/05/2024 TRIAGE Arrived by EMS. Historian: patient. ( pt here from [facility] via ems for c/o upset stomach, homelessness and feeling cold and tired.). Triage time: 01:31 09/05/2024. Acuity: LEVEL 3. Chief Complaint: FATIGUE, BLOOD SUGAR CHECK and WEAKNESS (upset stomach, thinks she drank coffee with too much sugar. denies any abd pain, just feels tired.). Alert. No acute distress. (anxious 2/2 being homeless, just kicked out of house where she was staying this morning.). SEPSIS SCREEN: NEGATIVE. SIRS criteria negative. No possible sources of infection. -- 01:36 09/05/24 CHAU Kaur R.N. 01:09/05/24. BP: 130/86 MAP: 101. HR: 84. RR: 16. O2 saturation: 97% on room air. Temperature: 97.9 F (oral). Pain level now 010. -- 01:09/05/24 CHAU Kaur R.N. Measurements: 01:09/05/24 Wt: 90.7 kg, Ht/Ishan: 61.0 in, BMI: 37.79 -- 01:09/05/24 CHAU Kaur R.N. Medications: no known home medications -- 01:09/05/24 CHAU Kaur R.N. 1 of 4 Nurse Narrative Allergies: no known drug allergies -- 01:09/05/24 CHAU Kaur R.N. 01:09/05/24. Preferred pharmacy (none). -- 01:09/05/24 CHAU Kaur R.N. History 01:09/05/24. PAST MEDICAL HX: Diabetes mellitus. Obesity. Last normal menstrual period now. SURGERY HX: (2). SOCIAL HX: Heavy tobacco smoker (cigarette)- less than 1 pack per day. Occasional alcohol use. No drug use. The patient has not traveled outside the [place] Infectious disease exposure: No infectious disease exposure. ABUSE ASSESSMENT: The patient answered "yes" to the question(s) "Do you feel safe in your home?" and "no" to the question(s) Are you afraid to go home?". SELF HARM ASSESSMENT: Self harm assessment was performed. The patient answered "no" to the question(s) "Have you recently felt down, depressed, or hopeless?" and "Do you have thoughts of harming or killing yourself?". FALL RISK ASSESSMENT: Fall risk assessment completed. No risk factors identified. -- 01:36 09/05/24 CHAU Kaur R.N. Interventions 01:31 09/05/24. Identification band on patient. Advanced care plan. Patient does not have advanced directive. -- 01:36 09/05/24 CHAU Kaur R.N. PHYSICAL ASSESSMENT 2 of 4 Nurse Narrative 01:39 09/05/24. Ambulatory to room. Patient gowned. GENERAL / NEURO / PSYCH: Alert. Oriented X 4. Appears in no acute distress. HEENT: No facial asymmetry noted. Mucous membranes are pink. RESPIRATORY: Respirations not labored. Chest nontender. Breath sounds within normal limits. CVS: Normal sinus rhythm noted. Capillary refill less than 2 seconds. Pulses within normal limits. GI / : Abdomen soft. SKIN: Skin intact. Skin is warm and dry. Normal skin turgor. -- 01:55 09/05/24 CHAU Kaur R.N. NURSING PROGRESS NOTES 01:45 09/05/24. NIBP monitor and pulse oximeter placed on patient. Patient gowned. Head of bed elevated 45 degrees. Two patient identifiers checked. Call light placed in reach. Side rails up x 2. Bed placed in lowest position. -- 01:55 09/05/24 CHAU Kaur R.N. 01:56 09/05/24. IV NS 0.9 % 1000 mL started in bag#1 1000 mL at 500 mL/hr via Site# 1. Allergies verified and confirmed 5 rights. Via dial-a-flow. IV patency established. IV site checked: no pain, redness, or swelling. IV flushed thoroughly pre-medication administration. Information reviewed with patient including reason for taking this medication. Verbalizes understanding. -- 01:57 09/05/24 CHAU Kaur R.N. 01:57 09/05/24. Site #1 started via IV in the left antecubital space with an 18g angiocath with aseptic technique and good blood return; 1 attempt. Blood drawn: rainbow set and castellon tube(s). Labeled in the presence of the patient and sent to the lab. Saline lock flushed with 5 mL saline. -- 01:57 09/05/24 CHAU Kaur R.N. 01:57 09/05/24. Zofran IVP 4 mg given via Site# 1. Allergies verified and confirmed 5 rights. IV patency established. IV site checked: no pain, redness, or swelling. IV flushed thoroughly pre-medication administration. IVP given by cdw. Information reviewed with patient including reason for taking this medication. Verbalizes understanding. -- 01:58 09/05/24 EST Bart Kaur R.N. 02:18 09/05/24. Patient waiting for lab results. -- 02:18 09/05/24 EST Bart Kaur R.N. 02:18 09/05/24. The patient is calm and resting quietly. -- 02:18 09/05/24 EST Bart Kaur R.N. 02:30 09/05/24. BP: 122/78 MAP: 86 mmHg. HR: 83 bpm. -- 03:24 09/05/24 EST Bart Johnson (more content not included)... Normal [facility] ED ORDER SHEET (CPOE ONLY)on 09-05-2024 ED ORDER SHEET (CPOE ONLY) Order Sheet Order Sheet [address] [place] [address] [id number] 09/05/2024 Patient: SOPHIE MUNGUIA Sex: Female : 1980 Age: 44y MEASUREMENTS: Wt: 90.7 kg, Ht/Ishan: 61.0 in, BMI: 37.79 ALLERGIES: No known drug allergies MEDICATION/IV/DRIP/FLUI D ORDERS Order Description Priority Entered Acknowledged Completed IV NS 0.9 %1000 mL at 500 01:36 09/05/2024 01:43 01:57 mL/hr (NOW x1) Rolan Sanderson D.O. 09/05/2024 09/05/2024 Bart Noland R.N. R.N. Zofran IVP4 mg (NOW x1) 01:40 09/05/2024 01:43 01:58 Rolan Sanderson D.O. 09/05/2024 09/05/2024 Bart Noland R.N. R.N. metFORMIN (Glucophage) 03:45 09/05/2024 03:56 04:15 PO500 mg (NOW x1) Rolan Sanderson D.O. 09/05/2024 09/05/2024 Bart Noland R.NDeonna Gorman LAB ORDERS Order Description Priority Entered Acknowledged Collected Completed CBC w Diff Stat Stat 01:39 09/05/2024 01:43 09/05/2024 Bart Shah, 1 of 4 Order Sheet oCrnelia Cleary. CMP Stat Stat 01:39 09/05/2024 01:43 09/05/2024 Bart Shah D.O. R.N. BNP Stat Stat 01:39 09/05/2024 01:43 09/05/2024 Bart Shah D.O. R.N. Troponin-I Stat Stat 01:39 09/05/2024 01:43 09/05/2024 Bart Shah D.O. R.N. EKG - ED Stat Stat 01:39 09/05/2024 01:43 09/05/2024 Bart Shah D.O. R.N. Lipase Stat Stat 01:39 09/05/2024 01:43 09/05/2024 Bart Shah D.ODeonna Gorman Lactate, Serum Stat Stat 01:39 09/05/2024 01:43 09/05/2024 Bart Shah D.ODeonna RLaura Urinalysis Stat Stat 01:39 09/05/2024 01:43 09/05/2024 Bart Shah D.ODeonna RLaura Urine - HCG Stat 01:39 09/05/2024 01:43 09/05/2024 2 of 4 Order Sheet Stat Bart Shah D.O. R.N. Acetaminophen Level Stat 01:39 09/05/2024 01:43 09/05/2024 Stat Bart Shah D.O. RLaura Salicylate Level Stat Stat 01:39 09/05/2024 01:43 09/05/2024 Bart Shah D.O. RLaura Blood Alcohol - ETOH Stat 01:39 09/05/2024 01:43 09/05/2024 Stat Bart Shah D.O. R.N. TSH Stat Stat 01:39 09/05/2024 01:43 09/05/2024 Bart Shah D.O. R.N. Urine Drug Screen Stat Stat 01:39 09/05/2024 01:43 09/05/2024 Bart Shah D.O. R.N. DIAGNOSTIC STUDY ORDERS Order Description Priority Entered Acknowledged Completed STAFF ORDERS Order Description Priority Entered Acknowledged Collected Completed Oxygen titrate to 92% 01:39 09/05/2024 01:43 09/05/2024 Bart Shah D.O. R.N. 3 of 4 Order Sheet POC Glucose 01:40 09/05/2024 01:43 09/05/2024 Bart Shah D.O. R.N. [Electronically signed by Rolan Sanderson D.O. (09/05/2024 05:05 EST)] 4 of 4 Normal [facility] ED PHYSICIAN CLINICAL REPORT on 09-05-2024 ED PHYSICIAN CLINICAL REPORT Narrative Physician Clinical Narrative [address] [address] [id number] 09/05/2024 Patient: SOPHIE MUNGUIA Sex: Female : 1980 Age: 44y Disposition: Discharge Disposition Decision Time: 04:15 09/05/2024 Measurements Wt: 90.7 kg, Ht/Ishan: 61.0 in, BMI: 37.79 Initial Vital Sign Measured Time BP MAP HR RR O2Sat ETCO2 Temp Pain GCS RTS 01:32 09/05/2024 130/86 101 84 16 97% RA 97.9 F 0 Time Seen; upon arrival. Arrived- By ambulance. Historian- patient. Independent historian- EMS personnel. Supervisory Note: I personally interviewed the patient. HISTORY OF PRESENT ILLNESS This started just prior to arrival. The patient has had loss of appetite. (nausea, vomited once, states she is homeless, kicked out of live-in arrangement with friend in [place] who told her she needs to get a job, who is on diability himself, was sick to stomach before went to [employer], then got sick after [employer], then went to [employer] for coffee, put too much sugar in her coffee, is a diabetic, not taking medications, relatively new to area, was in [place] homeless there she states. She states she is a diabetic, taking no medications, does not know how to use insulin.). Recent medical care: Evaluation/treatment- Not from this area. REVIEW OF SYSTEMS 1 of 13 Narrative RESPIRATORY: No cough or difficulty breathing. NEUROLOGICAL: No headache or blackouts. No difficulty with ambulation. MUSCULOSKELETAL: No back pain. SKIN: No skin rash. CVS: No chest pain or calf pain. GI: No abdominal pain, vomiting, diarrhea, black stools or bloody stools. The patient has had nausea. EYES: No double vision. THROAT: No sore throat. NOSE: No sinus drainage. : No difficulty with urination or abnormal bleeding. PAST HISTORY No hx prior heart, lung, abd surg, has two children, does not know about them (adults), has a mother in a prison near [place], [place], no contact, father young from [place], was borne in [facility]. Medications: no known home medications Allergies: no known drug allergies ADDITIONAL NOTES The nursing notes have been reviewed. PHYSICAL EXAM Vital Signs: Have been reviewed. Appearance: Alert. No apparent distress. (Pleasant, well spoken, clean, cooperative, admits to being homeless with no where to go). Eyes: Pupils equal, round and reactive to light. Eyes normal inspection. ENT: Ears normal. Nose normal. Pharynx normal. Neck: Normal inspection. Neck supple. CVS: Normal heart rate. Heart sounds normal. Pulses normal. Respiratory: No respiratory distress. Painless inspiration. Breath sounds normal. Chest nontender. Abdomen: No visible injury. Soft and nontender. Bowel sounds normal. No organomegaly. No mass. (obese). Back: Normal inspection. Skin: Skin warm and dry. Normal skin color. No rash. (no foot lesions or deformities). Extremities: Extremities exhibit normal ROM. No lower extremity edema. Neuro: Oriented X 3. No motor deficit. No sensory deficit. Reflexes normal. (speaks at length about the fact that she is homeless, was dropped off in town, is a diabetic without medications). 2 of 13 Narrative LABS, X-RAYS, AND EKG 12-LEAD EK hours, 05 Sep 2024, no prior ekg against which to compare, nsr, no ectopy, no evidence of acuity, er physician readying. Prior EKG unavailable. The EKG appears to be a good tracing. Laboratory Tests: ACETAMINOPHEN Final UYEN: 09/05/2024 02:00:00 EST MsgRcvd: 09/05/2024 03:16 EST Lab Test Result Reference Status Received Comments <2.0 ug/mL 09/05/2024 ACETAMINOPHEN 10.0 - 30.0 Final Below low normal 03:16 EST ALCOHOL-BLOOD MEDICAL Final UYEN: 09/05/2024 02:00:00 EST MsgRcvd: 09/05/2024 03:15 EST Lab Test Result Reference Status Received Comments 09/05/2024 03:15 ALCOHOL 13 mg/dl 0 - 50 Final EST CBC + DIFF Final UYEN: 09/05/2024 02:00:00 EST MsgRcvd: 09/05/2024 02:31 EST Lab Test Result Reference Status Received Comments 09/05/2024 02:31 CBC-COMPLETE CBC + DIFF Final EST BLOOD COUNT 09/05/2024 02:31 WBC 6.0 x 10/UL 4.5 - 10.8 Final EST 09/05/2024 02:31 RBC 4.81 x 10/UL 4.10 - 5.30 Final EST 3 of 13 Narrative 09/05/2024 02:31 HEMOGLOBIN 14.5 g/dl 12.0 - 16.0 Final EST 09/05/2024 02:31 HEMATOCRIT 41.8 % 34.0 - 46.0 Final EST 09/05/2024 02:31 MCV 87 fl 80 - 99 Final EST 09/05/2024 02:31 MCH 30 pg 27 - 33 Final EST 09/05/2024 02:31 MCHC 35 X10 3 32 - 36 Final EST 09/05/2024 02:31 RDW/CV 13.1 % 12.0 - 15.6 Final EST 09/05/2024 02:31 PLATELET 223 x10/UL 150 - 450 Final EST 09/05/2024 02:31 AUTOMATED MPV 7.5 fl 6.6 - 10.5 Final EST DIFFERENTIAL 09/05/2024 02:31 NEUT % 66.2 % 46.0 - 76.0 Final EST 09/05/2024 02:31 LYMPH % 27.0 % 20.0 - 45.0 Final EST (more content not included)... Normal [facility] ED SUPER BILLon 09-05-2024 ED SUPER BILL [address] [address] [id number] 09/05/2024 Patient: SOPHIE MUNGUIA Sex: Female : 1980 Age: 44y Item Facility Professional Category Description Code Code Quantity Fee Total Nurse/E/M EMERGENCY 450665 1 $0.00 $0.00 DEPARTMENT VISIT HIGH/URGENT SEVERITY (55120-54) Nurse/IV/IM/Infusions Hydration 784453 2 $0.00 $0.00 additional hour (61890) Nurse/IV/IM/Infusions IVP initial [id number] 1 $0.00 $0.00 (43532) Grand Total $0.00 Providers Rolan Sanderson D.O. Principal Diagnosis 1 of 2 [facility] Poorly controlled type 2 diabetes. homelessness out of her diabetic medication (she denies suidical or homicidal intent). 2 of 2 Normal [facility] ED VISIT SUMMARYon 4 ED VISIT SUMMARY Visit Overview Visit Overview [address] [address] [id number] 09/05/2024 Patient: SOPHIE MUNGUIA Sex: Female : 1980 Age: 44y 09/05/2024 07:15 PM EST ED Arrival:01:06 09/05/2024 EST Status: Recent Travel:no Language:eng Adv Directive:No Isolation Status: Ethnicity:N Fall Risk:no risk Infectious Disease Exposure:no Measurements:5'1" / 154.9 Self-Harm Status:risk Sepsis Screen:negative cm 200.0 lb / 90.7 kg Chief Complaint: BLOOD SUGAR CHECK \\@9 ZZZ, FATIGUE, WEAKNESS, (anxious 2/2 being homeless, just kicked out of house where she was staying this morning.), (pt here from [facility] via ems for c/o upset stomach, homelessness and feeling cold and tired.), and (upset stomach, thinks she drank coffee with too much sugar. denies any abd pain, just feels tired.) ALLERGIES 1 of 4 Visit Overview No Known Drug Allergies HOME MEDICATIONS None PAST MEDICAL HISTORY / PROBLEMS Diabetes mellitus Last normal menstrual period now Obesity PAST SURGICAL HISTORY (2) SOCIAL HISTORY Smoking status: Yes Alcohol use: Yes Drug use: No ED COURSE MEDICATIONS GIVEN IN EMERGENCY DEPARTMENT 01:56 09/05/24 IV NS 0.9 % 1000 mL 500 mL/hr 01:57 09/05/24 Zofran IVP 4 mg 04:13 09/05/24 metFORMIN (Glucophage) PO 500 mg IV SITE INFORMATION INTAKE OUTPUT REASSESMENT (most recent) 04:31 09/05/24. The patient is resting quietly and sleeping. ( Resource materials collected for pt, including local housing and transportation assistance phone numbers/contact information.). VITAL SIGNS 2 of 4 Visit Overview First Vitals Last Vitals Temp 01:32 09/05/24 97.9 F Temp 06:15 09/05/24 BP 01:32 09/05/24 130/86 BP 06:15 09/05/24 HR 01:32 09/05/24 84 HR 06:15 09/05/24 RR 01:32 09/05/24 16 RR 06:15 09/05/24 16 O2 Sat 01:32 09/05/24 97% RA O2 Sat 06:15 09/05/24 Pain 01:32 09/05/24 0 Pain 06:15 09/05/24 0 ETCO2 01:32 09/05/24 ETCO2 06:15 09/05/24 GCS 01:32 09/05/24 GCS 06:15 09/05/24 RTS 01:32 09/05/24 RTS 06:15 09/05/24 PROCEDURES NURSING INTERVENTIONS LABS / STUDIES LABS / STUDIES ORDERED Acetaminophen Level Blood Alcohol - ETOH BNP CBC w Diff CMP EKG - ED Lactate, Serum Lipase Salicylate Level Troponin-I TSH Urinalysis Urine Drug Screen Urine - HCG LABS - ABNORMAL RESULTS CMP with eGFR GLUCOSE 553 mg/dl () 3 of 4 Visit Overview LABS / STUDIES PENDING IMPORT DRUG SCREEN URINE MEDIC TSH CLINICAL IMPRESSION POORLY CONTROLLED TYPE 2 DIABETES 4 of 4 Normal [facility] ED VITALS FLOW SHEETon 09-05 ED VITALS FLOW SHEET Vitals Vital Sign Flow Sheet [address] [place] [address] [id number] 09/05/2024 Patient: SOPHIE MUNGUIA Sex: Female : 1980 Age: 44y Measurements Wt: 90.7 kg, Ht/Ishan: 61.0 in, BMI: 37.79 Measured Time BP MAP HR RR O2Sat ETCO2 Temp Pain GCS RTS 06:15 09/05/2024 16 0 06:06 09/05/2024 76 97% 06:01 09/05/2024 77 98% 06:00 09/05/2024 109/69 78 80 05:56 09/05/2024 75 97% 05:51 09/05/2024 73 99% 05:46 09/05/2024 77 97% 05:45 09/05/2024 108/71 79 77 05:41 09/05/2024 82 98% 05:36 09/05/2024 82 96% 05:31 09/05/2024 77 97% 05:30 09/05/2024 115/62 73 74 05:26 09/05/2024 76 97% 05:21 09/05/2024 80 97% 05:16 09/05/2024 77 97% 1 of 3 Vitals Measured Time BP MAP HR RR O2Sat ETCO2 Temp Pain GCS RTS 05:15 09/05/2024 104/66 76 73 05:11 09/05/2024 76 98% 05:06 09/05/2024 74 99% 05:01 09/05/2024 78 99% 05:00 09/05/2024 115/71 82 79 04:56 09/05/2024 76 98% 04:51 09/05/2024 74 99% 04:46 09/05/2024 78 98% 04:45 09/05/2024 112/74 90 78 04:41 09/05/2024 76 97% 04:36 09/05/2024 87 97% 04:31 09/05/2024 78 98% 04:30 09/05/2024 118/72 87 80 04:26 09/05/2024 78 99% 04:21 09/05/2024 86 98% 04:18 09/05/2024 125/70 95 80 02:46 09/05/2024 79 100% 02:45 09/05/2024 111/77 86 80 02:41 09/05/2024 82 100% 02:36 09/05/2024 81 100% 02:31 09/05/2024 83 100% 02:30 09/05/2024 122/78 86 83 02:26 09/05/2024 84 100% 02:21 09/05/2024 89 100% 01:32 09/05/2024 130/86 101 84 16 97% RA 97.9 F 0 2 of 3 Vitals 3 of 3 Normal [facility] LACTATEon 09-05-2024 Lactate [Moles/Vol] 1.8 mmol/L Normal 0.4 - 2.0 [facility] Comment on above: Performed By: #### 2 [id number] #### [facility],[address] [place] [address] LIPASEon 09-05-2024 Lipase [Catalytic activity/Vol] 39.0 U/L Normal 15.0 - 78.0 [facility] Comment on above: Result Comment: *PLE ASE NOTE THAT RANGES FOR LIPASE HAVE CHANGED OF 09/24/23 DUE TO AN ASSAY UPDATE BY THE GAS CHECK PAD MAKER.THE NEW ASSAY RANGE IS 6-250 U/L, WITH A REFERENCE RANGE OF 16-77 U/L. Performed By: #### 2 [id number] #### [facility],[address] [place], [place] [address] NT-proBNPon 09-05-2024 Natriuretic peptide B (Bld) [Mass/Vol] 36 pg/mL Normal 0 - 125 [facility] Comment on above: Performed By: #### 2 [id number] #### [facility],[address] [place] [address] URINEon 09-05-2024 Beta HCG ( test) Ql (U) Negative Normal NEGATIVE [facility] Comment on above: Performed By: #### 2 85660 #### [facility],[address] [place] [address] EXTERNAL QC DONE? YES Normal [facility] Comment on above: Performed By: #### 2 [id number] #### [facility],[address] [place] [address] INTERNAL QC PASS Normal [facility] Comment on above: Performed By: #### 2 [id number] #### [facility],[address] [place] [address] SALICYLATEon 09-05-2024 SALICYLATE 1.3 mg/dl Low 2.8 - 20.0 [facility] Comment on above: Result Comment: *PAT IENTS TREATED WITH SULFASALAZINE MAY GENERATE A FALSE HIGH RESULT FOR SALICYLATE. *PATIENTS TREATED WITH SULFAPYRIDINE MAY GENERATE A FALSE LOW RESULT FOR SALICYLATE. Performed By: #### 2 [id number] #### [facility],[address] [place] [address] TROPONINon 09-05-2024 HS TROPONIN <4.0 Normal 0.0 - 51.4 [facility] Comment on above: Performed By: #### 2 [id number] #### [facility],[address] [place], [place] [id number] TSHon 09-05-2024 TSH Qn 2.32 m[IU]/L Normal 0.35 - 3.74 [facility] Comment on above: Performed By: #### 2 27515 #### [facility],[address] [place] [address] URINALYSISon 09-05-2024 Amorphous 1+ Normal [facility] Comment on above: Performed By: #### 2 [id number] #### [facility],[address] [place] [address] Bacteria NONE Normal [facility] Comment on above: Performed By: #### 2 [id number] #### [facility],[address],[place] [address] Bilirubin Ql (U) Negative Normal NORMAL: NEGATIVE [facility] Comment on above: Performed By: #### 2 83007 #### [facility],[address] [place] [address] Casts NONE Normal [facility] Comment on above: Performed By: #### 2 02384 #### [facility],[address] [place] [address] Clarity (U) clear Normal NORMAL: CLEAR [facility] Comment on above: Performed By: #### 2 [id number] #### [facility],[address] [place] [address] Color (U) yellow Normal NORMAL: YELLOW [facility] Comment on above: Performed By: #### 2 88174 #### [facility],[address] [place] [address] Crystals LM Nom (Urine sed) NONE Normal [facility] Comment on above: Performed By: #### 2 14566 #### [facility],[address] [place] [address] Epi Cells OCC Normal [facility] Comment on above: Performed By: #### 2 84801 #### [facility],[address] [place] [address] Glucose Ql (U) 1000 Abnormal NORMAL: NORMAL [facility] Comment on above: Performed By: #### 2 [id number] #### [facility],[address] [place] [address] Hemoglobin Ql (U) 150 Abnormal NORMAL: NEGATIVE [facility] Comment on above: Performed By: #### 2 29926 #### [facility],[address] [place] [address] Ketone Negative Normal NORMAL: NEGATIVE [facility] Comment on above: Performed By: #### 2 01709 #### [facility],[address] [place] [address] Leukocytes Negative Normal NORMAL: NEGATIVE [facility] Comment on above: Performed By: #### 2 74958 #### [facility],[address] [place] [address] Mucous NONE Normal [facility] Comment on above: Performed By: #### 2 69877 #### [facility],[address] [place], [place] [id number] Nitrite Ql (U) Negative Normal NORMAL: NEGATIVE [facility] Comment on above: Performed By: #### 2 63757 #### [facility],[address] [place] [address] pH (U) 6 [pH] Normal NORMAL: 5.0-8.0 [facility] Comment on above: Performed By: #### 2 77060 #### [facility],[address] [place] [address] Protein Ql (U) Negative Normal NORMAL: NEGATIVE [facility] Comment on above: Performed By: #### 2 [id number] #### [facility],[address] [place] [address] Rbc 0-5 Normal 0-3/hpf [facility] Comment on above: Performed By: #### 2 98138 #### [facility],[address] [place] [address] Sp [place] 1.015 Normal NORMAL: 1.010-1.030 [facility] Comment on above: Performed By: #### 2 87671 #### [facility],[address] [place] [address] Specimen Type R Normal [facility] Comment on above: Performed By: #### 2 84919 #### [facility],[address] [place] [address] Urinalysis dipstick W Reflex Microscopic panel (U) SEE BELOW Normal [facility] Comment on above: Result Comment: MICR OSCOPIC Performed By: #### 2 55236 #### [facility],[address],[place] [address] Urobilinog NORM Normal NORMAL: NORMAL [facility] Comment on above: Performed By: #### 2 67087 #### [facility],[address] [place] [address] Wbc NONE Normal 0-5/hpf [facility] Comment on above: Performed By: #### 2 49584 #### [facility],[address] [place] [address] Yeast NONE Normal [facility] Comment on above: Performed By: #### 2 67729 #### [facility],[address] [place] [address] ALCOHOL, MEDICALon ALCOHOL MEDICAL < Normal <10.0 [facility] Comment on above: Result Comment: Alco hol cutoff: <10.00 mg/dL = None Detected Performed By: #### 4 [id number] #### LAB [address] [place] [address] 21855 Ailin Hodgson M.D. [id number] BASIC METABOLIC PANELon 02-26 Anion gap [Moles/Vol] 19 mmol/L Normal 10-20 [facility] Comment on above: Order Comment: [facility] has implemented the eGFR calculation approach that does not have a coefficient for race that conforms to the NKF-ASN Task Force Recommendations. Performed By: #### 4 6124 #### LAB [address] [place] [address] Ailin Hodgson M.D. [id number] Calcium [Mass/Vol] 8.6 mg/dL Normal 8.4-10.2 [facility] Comment on above: Order Comment: [facility] has implemented the eGFR calculation approach that does not have a coefficient for race that conforms to the NKF-ASN Task Force Recommendations. Performed By: #### 4 6124 #### LAB [address] [place] [address]67[address] Ailin Hodgson M.D. [id number] Chloride [Moles/Vol] 94 mmol/L Low 98-108 [facility] Comment on above: Order Comment: [facility] has implemented the eGFR calculation approach that does not have a coefficient for race that conforms to the NKF-ASN Task Force Recommendations. Performed By: #### 4 6124 #### LAB [address] [place] [address] 07163 Ailin Hodgson M.D. [id number] Creatinine [Mass/Vol] 0.68 mg/dL Normal 0.40-1.10 [facility] Comment on above: Order Comment: [facility] has implemented the eGFR calculation approach that does not have a coefficient for race that conforms to the NKF-ASN Task Force Recommendations. Performed By: #### 4 6124 #### LAB [address] [place] [address] Ailin Hodgson M.D. [id number] EGFR 110 mL/min/1.73 m2 Normal >=60 [facility] Comment on above: Order Comment: [facility] has implemented the eGFR calculation approach that does not have a coefficient for race that conforms to the NKF-ASN Task Force Recommendations. Result Comment: Devora mated GFR was calculated using the 2020 CKD-EPI creatinine equation. Performed By: #### 4 6124 #### LAB [address] [place] [address] Ailin Hodgson M.D. [id number] Glucose [Mass/Vol] 401 mg/dL Off scale high 65-99 [facility] Comment on above: Order Comment: [facility] has implemented the eGFR calculation approach that does not have a coefficient for race that conforms to the NKF-ASN Task Force Recommendations. Performed By: #### 4 6124 #### LAB [address] [place] [address] 801[address] Ailin Hodgson M.D. [id number] HCO3 (Bld) [Moles/Vol] 23 mmol/L Normal 21-32 [facility] Comment on above: Order Comment: [facility] has implemented the eGFR calculation approach that does not have a coefficient for race that conforms to the NKF-ASN Task Force Recommendations. Performed By: #### 4 [id number] #### LAB [address] [place] [address] 46005 Ailin Hodgson M.D. [id number] Potassium [Moles/Vol] 3.6 mmol/L Normal 3.5-5.1 [facility] Comment on above: Order Comment: [facility] has implemented the eGFR calculation approach that does not have a coefficient for race that conforms to the NKF-ASN Task Force Recommendations. Performed By: #### 4 6124 #### LAB [address] [place] [address] Ailin Hodgson M.D. [id number] Sodium [Moles/Vol] 132 mmol/L Low 135-145 [facility] Comment on above: Order Comment: [facility] has implemented the eGFR calculation approach that does not have a coefficient for race that conforms to the NKF-ASN Task Force Recommendations. Performed By: #### 4 [id number] #### LAB [address] [place] [address] Ailin Hodgson M.D. [id number] Urea nitrogen [Mass/Vol] 6 mg/dL Low 8-25 [facility] Comment on above: Order Comment: [facility] has implemented the eGFR calculation approach that does not have a coefficient for race that conforms to the NKF-ASN Task Force Recommendations. Performed By: #### 4 [id number] #### LAB [address] [place] [address] Ailin Hodgson M.D. [id number] Urea nitrogen/Creatinine [Mass ratio] 8.8 mg/mg Low 10.0-20.0 [facility] Comment on above: Order Comment: [facility] has implemented the eGFR calculation approach that does not have a coefficient for race that conforms to the NKF-ASN Task Force Recommendations. Performed By: #### 4 [id number] #### LAB [address] [place] [address] Ailin Hodgson M.D. [id number] CBC WITH AUTO DIFFERENTIALon 03-18-2024 AUTO NRBC 0.0 % Normal [facility] Comment on above: Performed By: #### L [id number] #### LAB [address] [place] [address] Ailin Hodgson M.D. [id number] AUTO NRBC ABS COUNT 0.00 K/mcL Normal 0.00-0.00 [facility] Comment on above: Performed By: #### L [id number] #### LAB [address] [place] [address] Ailin Hodgson M.D. [id number] BASOPHILS ABSOLUTE COUNT 0.03 K/mcL Normal 0.00-0.30 [facility] Comment on above: Performed By: #### L [id number] #### LAB [address] [place] [address] Ailin Hodgson M.D. [id number] Basophils/100 WBC (Bld) 0.7 % Normal [facility] Comment on above: Performed By: #### L [id number] #### LAB [address] [place] [address] Ailin Hodgson M.D. [id number] Eosinophils (Bld) [#/Vol] 0.09 10*3/uL Normal 0.00-0.50 [facility] Comment on above: Performed By: #### L [id number] #### LAB [address] [place] [address] Ailin Hodgson M.D. [id number] Eosinophils/100 WBC (Bld) 2.1 % Normal [facility] Comment on above: Performed By: #### L [id number] #### LAB [address] [place] [address] Ailin Hodgson M.D. [id number] Erythrocyte distribution width (RBC) [Ratio] 13.2 % Normal 11.6-14.8 [facility] Comment on above: Performed By: #### L [id number] #### LAB [address] [place] [address] Ailin Hodgson M.D. [id number] Hematocrit (Bld) [Volume fraction] 38.3 % Normal 36.0-46.0 [facility] Comment on above: Performed By: #### L [id number] #### LAB [address] [place] [address] Ailin Hodgson M.D. [id number] Hemoglobin (Bld) [Mass/Vol] 13.3 g/dL Normal 12.0-16.0 [facility] Comment on above: Performed By: #### L [id number] #### LAB [address] [place] [address] Ailin Hodgson M.D. [id number] IG ABSOLUTE 0.01 K/mcL Normal 0.00-0.30 [facility] Comment on above: Performed By: #### L [id number] #### LAB [address] [place] [address] Ailin Hodgson M.D. [id number] IG PERCENT 0.20 % Normal [facility] Comment on above: Result Comment: The IG parameter is the percentage of metamyelocytes, myelocytes and promyelocytes. An immature granulocyte count (IG) of 1% or more suggests the possibility of infection, an IG count of 3% is very likely related to an infection. Performed By: #### L [id number] #### LAB [address] [place] [address] Ailin Hodgson M.D. [id number] Lymphocytes (Bld) [#/Vol] 1.09 10*3/uL Normal 0.90-4.00 [facility] Comment on above: Performed By: #### L [id number] #### LAB [address] [place] [address] Ailin Hodgson M.D. [id number] Lymphocytes/100 WBC (Bld) 25.3 % Normal [facility] Comment on above: Performed By: #### L [id number] #### LAB [address] [place] [address] Ailin Hodgson M.D. [id number] MCH (RBC) [Entitic mass] 30.2 pg Normal 26.0-34.0 [facility] Comment on above: Performed By: #### L [id number] #### LAB [address] [place] [address] Ailin Hodgson M.D. [id number] MCV (RBC) [Entitic vol] 87.0 fL Normal 80.0-100.0 [facility] Comment on above: Performed By: #### L [id number] #### LAB [address] [place] [address] Ailin Hodgson M.D. [id number] MEAN CORPUSCULAR HEMOGLOBIN CONC 34.7 g/dL Normal 31.0-37.0 [facility] Comment on above: Performed By: #### L [id number] #### LAB [address] [place] [address] Ailin Hodgson M.D. [id number] Monocytes (Bld) [#/Vol] 0.33 10*3/uL Normal 0.30-0.90 [facility] Comment on above: Performed By: #### L [id number] #### LAB [address] [place] [address] Ailin Hodgson M.D. [id number] Monocytes/100 WBC (Bld) 7.7 % Normal [facility] Comment on above: Performed By: #### L [id number] #### LAB [address] [place] [address] Ailin Hodgson M.D. [id number] NEUTROPHILS ABSOLUTE COUNT 2.76 K/mcL Normal 1.70-7.00 [facility] Comment on above: Performed By: #### L [id number] #### LAB [address] [place] [address] Ailin Hodgson M.D. [id number] Neutrophils/100 WBC (Bld) 64.0 % Normal [facility] Comment on above: Performed By: #### L [id number] #### LAB [address] [place] [address] Ailin Hodgson M.D. [id number] Platelet mean volume (Bld) [Entitic vol] 9.8 fL Normal 9.4-12.4 [facility] Comment on above: Performed By: #### L [id number] #### LAB [address] [place] [address] Ailin Hodgson M.D. [id number] Platelets (Bld) [#/Vol] 210 10*3/uL Normal 150-400 [facility] Comment on above: Performed By: #### L [id number] #### LAB [address] [place] [address] Ailin Hodgson M.D. [id number] RBC (Bld) [#/Vol] 4.40 10*6/uL Normal 4.00-5.20 [facility] Comment on above: Performed By: #### L [id number] #### LAB [address] [place] [address] Ailin Hodgson M.D. [id number] WBC (Bld) [#/Vol] 4.31 10*3/uL Low 4.50-11.00 [facility] Comment on above: Performed By: #### L [id number] #### LAB [address] [place] [address] Ailin Hodgson M.D. [id number] DRUGS OF ABUSE SCREEN, URINE on 03-18-2024 AMPHETAMINE SCREEN, URINE Not detected Normal None Detected [facility] Comment on above: Order Comment: Scree n results should be used for treatment purposes only. Result Comment: Urin e Amphetamine Cutoff: < 1000 ng/mL = None Detected Performed By: #### 4 [id number] #### LAB [address] [place] [address] Ailin Hodgson M.D. [id number] BARBITURATE SCREEN URINE Not detected Normal None Detected [facility] Comment on above: Order Comment: Scree n results should be used for treatment purposes only. Result Comment: Urin e Barbiturates Cutoff: < 200 ng/mL = None Detected Performed By: #### 4 [id number] #### LAB [address] [place] [address] Ailin Hodgson M.D. [id number] BENZODIAZEPINE SCREEN, URINE Not detected Normal None Detected [facility] Comment on above: Order Comment: Scree n results should be used for treatment purposes only. Result Comment: Urin e Benzodiazepine Cutoff: < 200 ng/mL = None Detected Performed By: #### 4 [id number] #### LAB [address] [place] [address] Ailin Hodgson M.D. [id number] BUPRENORPHINE, URINE Not detected Normal None Detected [facility] Comment on above: Order Comment: Scree n results should be used for treatment purposes only. Result Comment: Urin e Buprenorphine Cutoff: < 5 ng/mL = None Detected Performed By: #### 4 [id number] #### LAB [address] [place] [address] Ailin Hodgson M.D. [id number] CANNABINOID SCREEN URINE Not detected Normal None Detected [facility] Comment on above: Order Comment: Scree n results should be used for treatment purposes only. Result Comment: Urin e Cannabinoids Cutoff: < 50 ng/mL = None Detected Performed By: #### 4 [id number] #### LAB [address] [place] [address] Ailin Hodgson M.D. [id number] COCAINE, SCREEN URINE Not detected Normal None Detected [facility] Comment on above: Order Comment: Scree n results should be used for treatment purposes only. Result Comment: Urin e Cocaine Cutoff: < 300 ng/mL = None Detected Performed By: #### 4 [id number] #### LAB [address] [place] [address] Ailin Hodgson M.D. [id number] FENTANYL, URINE Not detected Normal None Detected [facility] Comment on above: Order Comment: Scree n results should be used for treatment purposes only. Result Comment: Urin e Fentanyl Cutoff: < 1 ng/mL = None Detected Performed By: #### 4 [id number] #### LAB [address] [place] [address] Ailin Hodgson M.D. [id number] METHADONE SCREEN, URINE Not detected Normal None Detected [facility] Comment on above: Order Comment: Scree n results should be used for treatment purposes only. Result Comment: Urin e Methadone Cutoff: < 300 ng/mL = None Detected Performed By: #### 4 [id number] #### LAB [address] [place] [address] Ailin Hodgson M.D. [id number] OPIATE SCREEN URINE Not detected Normal None Detected [facility] Comment on above: Order Comment: Scree n results should be used for treatment purposes only. Result Comment: Urin e Opiates Cutoff: < 300 ng/mL = None Detected Performed By: #### 4 [id number] #### LAB [address] [place] [address] Ailin Hodgson M.D. [id number] OXYCODONE SCREEN, URINE Not detected Normal None Detected [facility] Comment on above: Order Comment: Scree n results should be used for treatment purposes only. Result Comment: Urin e Oxycodone Cutoff: < 100 ng/mL = None Detected Performed By: #### 4 [id number] #### LAB [address] [place] [address] Ailin Hodgson M.D. [id number] ED Procedureon 03-18-2024 ED Procedure EKG 12-lead Date/Time: 03/18/2024 8:00 PM Performed by: Teofilo Haddad MD Authorized by: Teofilo Haddad MD Interpreted by ED attending physician Previous ECG: no previous ECG available Rhythm: sinus rhythm BPM: 89 Conduction: conduction normal ST Segments: ST segments normal T Waves: T waves normal normal NE interval normal QRS interval normal QT interval Other: no other findings Clinical impression: normal ECG AUTHENTICATED BY TEOFILO HADDAD, ON 03/18/2024 20:01:53 Normal [facility] ED Prov Noteon 03-18-2024 ED Prov Note [facility] ED Rotating Resident Note: NAME: Sophie Munguia 43 y.o. CSN: [id number] PCP: No, Physician History: Chief Complaint: Suicidal HPI: The history was obtained from the patient. Sophie is a 43 y.o. female who presents with a chief complaint of Suicidal. Patient states that she has been living on the streets for the past 2 months. She states that she has been hearing voices telling her to hurt herself. She also endorses nonspecific visual hallucinations but states auditory hallucinations are more prominent. She states that she has had reasonably and wanted to hurt herself while at the alf but could not do that. She states that she has gone up to people and asked them to her. She denies any drug use. States that she smokes cigarettes and will occasionally drink alcohol. States she has not used any of these because she has no means of getting them. She states that she has diabetes but has not been able to take her metformin or insulin. PMHx: Past Medical History: Diagnosis Date Bipolar 1 disorder (HCC) Depression Diabetes mellitus (HCC) PMSx: Past Surgical History: Procedure Laterality Date SECTION FAM. Hx: History reviewed. No pertinent family history. SOC. Hx: Social History Socioeconomic History Marital status: Single Tobacco Use Smoking status: Every Day Packs/day: .5 Types: Cigarettes Smokeless tobacco: Never Substance and Sexual Activity Alcohol use: Not Currently Comment: occ Drug use: Yes Types: Marijuana MEDs: Previous Medications Medication Sig glipiZIDE (GLUCOTROL) 5 MG tablet Take 1 (one) tablet (5 mg total) by mouth 2 (two) times a day before meals . hydrOXYzine (VISTARIL) 50 MG capsule Take 1 (one) capsule (50 mg total) by mouth every 6 (six) hours as needed for anxiety . metFORMIN (GLUCOPHAGE) 500 MG tablet Take 1 (one) tablet (500 mg total) by mouth 2 (two) times a day with meals . traZODone (DESYREL) 50 MG tablet Take 1 (one) tablet (50 mg total) by mouth nightly as needed for sleep . Ventolin HFA 90 mcg/actuation inhaler Inhale 2 (two) puffs every 4 to 6 hours as needed for wheezing . ALL: No Known Allergies ROS: Review of Systems Positives and pertinent negatives as per HPI. All other systems were reviewed and are negative. Physical Exam: Patient Vitals for the past 24 hrs: BP Temp Pulse Resp SpO2 Weight 03/18/24 2215 -- -- 91 -- 99 % -- 03/18/24 2130 (!) 140/88 -- 90 -- 98 % -- 03/18/24 2030 (!) 147/81 -- 86 16 99 % -- 03/18/24 1946 (!) 154/88 98.7 degrees F (37.1 degrees C) 90 16 98 % 97.5 kg (215 lb) Physical Exam Vitals and nursing note reviewed. Constitutional: General: She is not in acute distress. Appearance: Normal appearance. She is normal weight. HENT: Head: Normocephalic and atraumatic. Cardiovascular: Rate and Rhythm: Normal rate and regular rhythm. Pulses: Normal pulses. Heart sounds: Normal heart sounds. No murmur heard. Pulmonary: Effort: Pulmonary effort is normal. No respiratory distress. Breath sounds: Normal breath sounds. No stridor. No wheezing, rhonchi or rales. Abdominal: General: Abdomen is flat. There is no distension. Palpations: Abdomen is soft. Tenderness: There is no abdominal tenderness. There is no guarding or rebound. Hernia: No hernia is present. Skin: General: Skin is warm and dry. Capillary Refill: Capillary refill takes less than 2 seconds. Neurological: General: No focal deficit present. Mental Status: She is alert. Psychiatric: Attention and Perception: She perceives auditory and visual hallucinations. Speech: Speech normal. Behavior: Behavior normal. Thought Content: Thought content includes suicidal ideation. Thought content does not include homicidal ideation. Thought content does not include homicidal or suicidal plan. Laboratory & Radiological Imaging (if done): Labs Reviewed BASIC METABOLIC PANEL - Abnormal; Notable for the following components: Result Value Sodium 132 (*) Chloride 94 (*) Glucose 401 (*) BUN 6 (*) BUN/Creatinine Ratio 8.8 (*) All other components within normal limits Narrative: [facility] has implemented the eGFR calculation approach that does not have a coefficient for race that conforms to the NKF-ASN Task Force Recommendations. URINALYSIS - Abnormal; Notable for the following components: Specific [place] 1.036 (*) Glucose, Urine >=500 (*) Blood, Urine Small (*) All other components within normal limits Narrative: Microscopic examination is performed on all urinalysis samples and only positive findings are reported. The test for blood on the chemical analytic portion of urinalysis may also be positive due to hemoglobinuria and myoglobinuria and if red blood cells are present they are quantified by microscopic examination. HEMOGLOBIN A1C - Abnormal; Notable for the following components: Hemoglobin A1C 10.7 ( (more content not included)... Normal [facility] HCG, SERUM, QUALITATIVEon BETA-HCG QUAL BLOOD Negative Normal Negative [facility] Comment on above: Order Comment: Negat federico: The result is less than or equal to 5 mIU/mL of HCG. Performed By: #### 4 [id number] #### [facility] [address] [place] [address] Ailin Hodgson M.D. [id number] HEMOGLOBIN A1Con 03-18-2024 Glucose [Mass/Vol] 260 mg/dL High 74-114 [facility] Comment on above: Order Comment: Mary l: 4.2% - 5.6% Increased risk for diabetes: 5.7% - 6.4% Diabetes: >= 6.5% Pediatrics: No established reference range Estimated average glucose: 74-114 mg/dL Performed By: #### 4 8202 #### [facility] [address] [place] [address] Ailin Hodgson M.D. [id number] HbA1c (Bld) [Mass fraction] 10.7 % High 4.2-5.6 [facility] Comment on above: Order Comment: Mary l: 4.2% - 5.6% Increased risk for diabetes: 5.7% - 6.4% Diabetes: >= 6.5% Pediatrics: No established reference range Estimated average glucose: 74-114 mg/dL Performed By: #### 4 8202 #### LAB [address] [place] [address] Ailin Hodgson M.D. [id number] [facility] Glucose [Mass/Vol] 383 mg/dL High 65-99 [facility] URINALYSISon 03-18-2024 BACTERIA, URINE None Seen Normal None Seen [facility] Comment on above: Order Comment: Micro scopic examination is performed on all urinalysis samples and only positive findings are reported. The test for blood on the chemical analytic portion of urinalysis may also be positive due to hemoglobinuria and myoglobinuria and if red blood cells are present they are quantified by microscopic examination. Performed By: #### 4 6625 #### [facility] [address] [place] [address] Ailin Hodgson M.D. [id number] BILIRUBIN, URINE Negative Normal Negative [facility] Comment on above: Order Comment: Micro scopic examination is performed on all urinalysis samples and only positive findings are reported. The test for blood on the chemical analytic portion of urinalysis may also be positive due to hemoglobinuria and myoglobinuria and if red blood cells are present they are quantified by microscopic examination. Performed By: #### 4 6625 #### LAB [address] [place] [address] Ailin Hodgson M.D. [id number] BLOOD, URINE Small Abnormal Negative [facility] Comment on above: Order Comment: Micro scopic examination is performed on all urinalysis samples and only positive findings are reported. The test for blood on the chemical analytic portion of urinalysis may also be positive due to hemoglobinuria and myoglobinuria and if red blood cells are present they are quantified by microscopic examination. Performed By: #### 4 6625 #### [facility] [address] [place] [address] Ailin Hodgson M.D. [id number] Clarity (U) Clear Normal Clear [facility] Comment on above: Order Comment: Micro scopic examination is performed on all urinalysis samples and only positive findings are reported. The test for blood on the chemical analytic portion of urinalysis may also be positive due to hemoglobinuria and myoglobinuria and if red blood cells are present they are quantified by microscopic examination. Performed By: #### 4 6625 #### LAB [address] [place] [address] Ailin Hodgson M.D. [id number] Color (U) Yellow Normal Colorless, Yellow [facility] Comment on above: Order Comment: Micro scopic examination is performed on all urinalysis samples and only positive findings are reported. The test for blood on the chemical analytic portion of urinalysis may also be positive due to hemoglobinuria and myoglobinuria and if red blood cells are present they are quantified by microscopic examination. Performed By: #### 4 6625 #### LAB [address] [place] [address] Ailin Hodgson M.D. [id number] Glucose Ql (U) >=500 Abnormal Negative [facility] Comment on above: Order Comment: Micro scopic examination is performed on all urinalysis samples and only positive findings are reported. The test for blood on the chemical analytic portion of urinalysis may also be positive due to hemoglobinuria and myoglobinuria and if red blood cells are present they are quantified by microscopic examination. Performed By: #### 4 6625 #### LAB [address] [place] [address] Ailin Hodgson M.D. [id number] Ketones Ql (U) Negative Normal Negative [facility] Comment on above: Order Comment: Micro scopic examination is performed on all urinalysis samples and only positive findings are reported. The test for blood on the chemical analytic portion of urinalysis may also be positive due to hemoglobinuria and myoglobinuria and if red blood cells are present they are quantified by microscopic examination. Performed By: #### 4 6625 #### LAB [address] [place] [address] Ailin Hodgson M.D. [id number] Leukocyte esterase Test strip Ql (U) Negative Normal [facility] Comment on above: Order Comment: Micro scopic examination is performed on all urinalysis samples and only positive findings are reported. The test for blood on the chemical analytic portion of urinalysis may also be positive due to hemoglobinuria and myoglobinuria and if red blood cells are present they are quantified by microscopic examination. Performed By: #### 4 6625 #### LAB [address] [place] [address] Ailin Hodgson M.D. [id number] MUCUS, URINE Rare Normal None Seen, [facility] Comment on above: Order Comment: Micro scopic examination is performed on all urinalysis samples and only positive findings are reported. The test for blood on the chemical analytic portion of urinalysis may also be positive due to hemoglobinuria and myoglobinuria and if red blood cells are present they are quantified by microscopic examination. Performed By: #### 4 6625 #### LAB [address] [place] [address] Ailin Hodgson M.D. [id number] NITRITE, URINE Negative Normal Negative [facility] Comment on above: Order Comment: Micro scopic examination is performed on all urinalysis samples and only positive findings are reported. The test for blood on the chemical analytic portion of urinalysis may also be positive due to hemoglobinuria and myoglobinuria and if red blood cells are present they are quantified by microscopic examination. Performed By: #### 4 6625 #### LAB [address] [place] [address] Ailin Hodgson M.D. [id number] pH (U) 5.5 [pH] Normal 5.0-7.0 [facility] Comment on above: Order Comment: Micro scopic examination is performed on all urinalysis samples and only positive findings are reported. The test for blood on the chemical analytic portion of urinalysis may also be positive due to hemoglobinuria and myoglobinuria and if red blood cells are present they are quantified by microscopic examination. Performed By: #### 4 6625 #### LAB [address] [place] [address] Ailin Hodgson M.D. [id number] PROTEIN, URINE Negative Normal Negative [facility] Comment on above: Order Comment: Micro scopic examination is performed on all urinalysis samples and only positive findings are reported. The test for blood on the chemical analytic portion of urinalysis may also be positive due to hemoglobinuria and myoglobinuria and if red blood cells are present they are quantified by microscopic examination. Performed By: #### 4 6625 #### LAB [address] [place] [address] Ailin Hodgson M.D. [id number] RBC LM.HPF (Urine sed) [#/Area] 1 /[HPF] Normal 0-3 [facility] Comment on above: Order Comment: Micro scopic examination is performed on all urinalysis samples and only positive findings are reported. The test for blood on the chemical analytic portion of urinalysis may also be positive due to hemoglobinuria and myoglobinuria and if red blood cells are present they are quantified by microscopic examination. Performed By: #### 4 6625 #### [place] [address] Ailin Hodgson M.D. [id number] Specific gravity (U) [Rel density] 1.036 High 1.005-1.025 [facility] Comment on above: Order Comment: Micro scopic examination is performed on all urinalysis samples and only positive findings are reported. The test for blood on the chemical analytic portion of urinalysis may also be positive due to hemoglobinuria and myoglobinuria and if red blood cells are present they are quantified by microscopic examination. Performed By: #### 4 6625 #### [facility] [address] [place] [address] Ailin Hodgson M.D. [id number] SQUAMOUS EPITHELIAL < Normal 0-4 [facility] Comment on above: Order Comment: Micro scopic examination is performed on all urinalysis samples and only positive findings are reported. The test for blood on the chemical analytic portion of urinalysis may also be positive due to hemoglobinuria and myoglobinuria and if red blood cells are present they are quantified by microscopic examination. Performed By: #### 4 6625 #### LAB [address] [place] [address] Ailin Hodgson M.D. [id number] UROBILINOGEN, URINE <2.0 Normal <2.0 [facility] Comment on above: Order Comment: Micro scopic examination is performed on all urinalysis samples and only positive findings are reported. The test for blood on the chemical analytic portion of urinalysis may also be positive due to hemoglobinuria and myoglobinuria and if red blood cells are present they are quantified by microscopic examination. Performed By: #### 4 6625 #### LAB [address] [place] [address] Ailin Hodgson M.D. [id number] WBC LM.HPF (Urine sed) [#/Area] 2 /[HPF] Normal 0-5 [facility] Comment on above: Order Comment: Micro scopic examination is performed on all urinalysis samples and only positive findings are reported. The test for blood on the chemical analytic portion of urinalysis may also be positive due to hemoglobinuria and myoglobinuria and if red blood cells are present they are quantified by microscopic examination. Performed By: #### 4 6625 #### [address] [address] Ailin Hodgson M.D. [id number] Glucose Auto test strip (Bld ) [Mass/Vol]on 03-17-2024 Glucose [Mass/Vol] 340 mg/dL High 70 - 99 mg/dL [facility] Interpretation and review of laboratory results Abnormal [facility] Glucose [Mass/Vol] 340 mg/dL High 70-99 [facility] Comment on above: Performed By: #### 2 340-8 #### [facility] [address] [place] [address] HCG ( test) Ql (U)O rdered By: Izzy Yeboah on 03-17-2024 Beta HCG ( test) Ql (U) Negative Negative [facility] Beta HCG ( test) Ql (U) Yes Yes [facility] Interpretation and review of laboratory results Normal [facility] Urinalysis macro (dipstick) panel (U)on 03-17-2024 Bilirubin Ql (U) Negative Negative [facility] Blood Visual Ql (U) Large Abnormal Negative eryth/mcL [facility] Clarity (U) Cloudy Abnormal Clear [facility] Color (U) Yellow Yellow, Light Yellow [facility] Color (U) Negative Negative [facility] Color (U) 6.0 5.0 - 8.5 [facility] Glucose Test strip (U) [Mass/Vol] 500. Abnormal Negative mg/dL [facility] Interpretation and review of laboratory results Abnormal [facility] Ketones (U) [Mass/Vol] 15 mg/dL Abnormal Negat federico mg/dL [facility] Nitrite (Unsp spec) [Mass/Vol] Negative Negative [facility] Protein (U) [Mass/Vol] Negative Negat federico mg/dL [facility] Specific gravity (U) [Rel density] 1.025 1.005 - 1.030 [facility] Urobilinogen Qn (U) 0.2 {Rosendo'U}/dL 0. 2 - 1.0 EU/dL [facility] Bilirubin Urine POCT Negative Normal Negative [facility] Comment on above: Performed By: #### 2 4357-6 #### [facility] [address] [place] [address] Blood Urine POCT Large Abnormal Negative [facility] Comment on above: Performed By: #### 2 4357-6 #### [facility] [address] [place] [address] Clarity Urine POCT Cloudy Abnormal Clear [facility] Comment on above: Performed By: #### 2 4357-6 #### [facility] [address] [place] [address] Color Urine POCT Yellow Normal Yellow, Light Yellow [facility] Comment on above: Performed By: #### 2 4357-6 #### [facility] [address] [place] [address] Glucose Urine POCT 500. mg/dL Abnormal Negative [facility] Comment on above: Performed By: #### 2 4357-6 #### [facility] [address] [place] [address] Ketones Urine POCT 15. mg/dL Abnormal Negative [facility] Comment on above: Performed By: #### 2 4357-6 #### [facility] [address] [place] [address] Leukocyte Esterase POCT Negative Normal Negative [facility] Comment on above: Performed By: #### 2 4357-6 #### [facility] [address] [place] [address] Nitrite POCT Negative Normal Negative [facility] Comment on above: Performed By: #### 2 4357-6 #### [facility] [address] [place] [address] pH Urine POCT 6.0 Normal 5.0-8.5 [facility] Comment on above: Performed By: #### 2 4357-6 #### [facility] [address] [place] [address] Protein Urine POCT Negative Normal Negative [facility] Comment on above: Performed By: #### 2 4357-6 #### [facility] [address] [place] [address] Specific [place] Urine POCT 1.025 Normal 1.005-1.030 [facility] Comment on above: Performed By: #### 2 4357-6 #### [facility] [address] [place] [address] Urobilinogen POCT 0.2 EU/dL Normal 0.2 - 1.0 [facility] Comment on above: Performed By: #### 2 4357-6 #### [facility] [address] [place] [address] ED Prov Noteon 03-07-2024 ED Prov Note PCP - No, Physician Chief Complaint Patient presents with Needs Pain Medication HPI 43yo female with PMH of DM is here for wanting ibuprofen and muscle relaxant. Patient states she is homeless and has been sleeping outside. States she feels achy after sleeping outside. States she just wants a dose of ibuprofen and a muscle relaxant. She is denying any falls or injury. No headache or dizziness. No chest pain or shortness of breath. No abdominal pain. Denies any urinary or bowel complaints. No vaginal complaints. No back pain. Patient states she has achy joints all the time and has no access to ibuprofen or muscle relaxant. She denies any nausea or vomiting. No fevers or chills. Denies any numbness, tingling, or focal weakness. She is ambulatory with a steady gait. She has multiple bags in her hand while ambulating. Review of Systems Constitutional: No fevers. No unintentional weight change. Skin: No rash or color changes Eyes: No discharge ENMT: No drooling Respiratory: No stridor or hemoptysis Genitourinary: No obstructive symptoms or polyuria Endocrine: No polyphagia Neurologic: No new numbness or new face asymmetry. Psychiatric: No hallucinations Hematologic/Lymphatic: No abnormal or easy bruising Allergic/Immunologic: No hives Other pertinent positives and negatives in HPI Past Medical History Past Medical History: Diagnosis Date Diabetes mellitus (HCC) Past Surgical History Past Surgical History: Procedure Laterality Date SECTION Family History History reviewed. No pertinent family history. Social History Social History Socioeconomic History Marital status: Single Tobacco Use Smoking status: Every Day Packs/day: .5 Types: Cigarettes Smokeless tobacco: Never Substance and Sexual Activity Alcohol use: Not Currently Comment: occ Drug use: Yes Types: Marijuana Allergies No Known Allergies Medications Active Home Medications Medication Sig Take Last Dose On Take Morning of Surgery Comment(s) glipiZIDE (GLUCOTROL) 5 MG tablet Take 1 (one) tablet (5 mg total) by mouth 2 (two) times a day before meals . hydrOXYzine (VISTARIL) 50 MG capsule Take 1 (one) capsule (50 mg total) by mouth every 6 (six) hours as needed for anxiety . metFORMIN (GLUCOPHAGE) 500 MG tablet Take 1 (one) tablet (500 mg total) by mouth 2 (two) times a day with meals . traZODone (DESYREL) 50 MG tablet Take 1 (one) tablet (50 mg total) by mouth nightly as needed for sleep . Ventolin HFA 90 mcg/actuation inhaler Inhale 2 (two) puffs every 4 to 6 hours as needed for wheezing . Physical Exam Initial Vital Signs BP (!) 151/92 (BP Location: Left arm, Patient Position: Sitting) Pulse (!) 107 Temp 98.1 degrees F (36.7 degrees C) (Oral) Resp 16 LMP 01/20/2024 (Approximate) SpO2 97% Vital Signs During ED Visit (as charted by nursing) Patient Vitals for the past 24 hrs: BP Temp Temp src Pulse Resp SpO2 03/07/24 0042 (!) 151/92 98.1 degrees F (36.7 degrees C) Oral (!) 107 16 97 % Physical Exam Vitals and nursing note reviewed. Constitutional: General: She is not in acute distress. Appearance: Normal appearance. She is well-developed. She is not diaphoretic. HENT: Head: Normocephalic and atraumatic. Nose: Nose normal. Eyes: General: Lids are normal. No scleral icterus. Conjunctiva/sclera: Conjunctivae normal. Cardiovascular: Rate and Rhythm: Normal rate. Musculoskeletal: General: Normal range of motion. Cervical back: No rigidity. Pulmonary: Effort: Pulmonary effort is normal. No respiratory distress. Breath sounds: No stridor. Abdominal: General: There is no distension. Palpations: Abdomen is soft. There is no mass. Tenderness: There is no abdominal tenderness. There is no guarding or rebound. Skin: General: Skin is warm and dry. Capillary Refill: Capillary refill takes less than 2 seconds. Findings: No rash. Neurological: Mental Status: She is alert and oriented to person, place, and time. Psychiatric: Speech: Speech normal. Medical Decision Making I saw and evaluated the patient. I have reviewed the chief complaint, triage note, past medical/surgical, family, and social history. Differential Diagnosis: medication request, elevated blood press reading 43yo female evaluated for medication request. History obtained from patient. Pt with history of diabetes. Patient is alert and oriented x 3. No acute distress. Nontoxic in appearance. Patient states she has achy joints at baseline and does walk around all night because she is homeless. States she was sleeping outside and states her joints get stiff from this. She is requesting ibuprofen and a muscle relaxant. No injury or trauma. Denies any headache, dizziness, chest pain, shortness of breath. Neck supple. Moving all extremities equally. She is ambulatory without antalgic gait. Denies any abdominal pain or back pain. No systemic re (more content not included)... Normal [facility] CBC WITH AUTO DIFFERENTIALon 02-21-2024 AUTO NRBC 0.0 % Normal [facility] Comment on above: Performed By: #### L [id number] #### [facility] [address] [place] [address] Grady Guerra M.D. [id number] AUTO NRBC ABS COUNT 0.00 K/mcL Normal 0.00-0.00 [facility] Comment on above: Performed By: #### Merna [id number] #### [facility] [address] [place] [address] Grady Guerra M.D. [id number] BASOPHILS ABSOLUTE COUNT 0.05 K/mcL Normal 0.00-0.30 [facility] Comment on above: Performed By: #### Merna [id number] #### [facility] [address] [place] [address] Grady Guerra M.D. [id number] Basophils/100 WBC (Bld) 0.7 % Normal [facility] Comment on above: Performed By: #### Merna [id number] #### [facility] [address] [place] [address] Grady Guerra M.D. [id number] Eosinophils (Bld) [#/Vol] 0.19 10*3/uL Normal 0.00-0.50 [facility] Comment on above: Performed By: #### L [id number] #### [facility] [address] [place] [address] Grady Guerra M.D. [id number] Eosinophils/100 WBC (Bld) 2.6 % Normal [facility] Comment on above: Performed By: #### Merna [id number] #### [facility] [address] [place] [address] Grady Guerra M.D. [id number] Erythrocyte distribution width (RBC) [Ratio] 12.8 % Normal 11.6-14.8 [facility] Comment on above: Performed By: #### Merna [id number] #### [facility] [address] [place] [address] Grady Guerra M.D. [id number] Hematocrit (Bld) [Volume fraction] 38.7 % Normal 36.0-46.0 [facility] Comment on above: Performed By: #### L [id number] #### [facility] [address] [place] [address] Grady Guerra M.D. [id number] Hemoglobin (Bld) [Mass/Vol] 13.2 g/dL Normal 12.0-16.0 [facility] Comment on above: Performed By: #### L [id number] #### [facility] [address] [place] [address] Grady Guerra M.D. [id number] IG ABSOLUTE 0.04 K/mcL Normal 0.00-0.30 [facility] Comment on above: Performed By: #### L [id number] #### [facility] [address] [place] [address] Grady Guerra M.D. [id number] IG PERCENT 0.50 % Normal [facility] Comment on above: Result Comment: The IG parameter is the percentage of metamyelocytes, myelocytes and promyelocytes. An immature granulocyte count (IG) of 1% or more suggests the possibility of infection, an IG count of 3% is very likely related to an infection. Performed By: #### L [id number] #### [facility] [address] [place] [address] Grady Guerra M.D. [id number] Lymphocytes (Bld) [#/Vol] 2.11 10*3/uL Normal 0.90-4.00 [facility] Comment on above: Performed By: #### L [id number] #### [facility] [address] [place], [place] [address] Grady Guerra M.D. [id number] Lymphocytes/100 WBC (Bld) 28.4 % Normal [facility] Comment on above: Performed By: #### L [id number] #### [facility] [address] [place] [address] Grady Guerra M.D. [id number] MCH (RBC) [Entitic mass] 29.3 pg Normal 26.0-34.0 [facility] Comment on above: Performed By: #### Merna [id number] #### [facility] [address] [place] [address] Grady Guerra M.D. [id number] MCV (RBC) [Entitic vol] 85.8 fL Normal 80.0-100.0 [facility] Comment on above: Performed By: #### Merna [id number] #### [facility] [address] [place] [address] Grady Guerra M.D. [id number] MEAN CORPUSCULAR HEMOGLOBIN CONC 34.1 g/dL Normal 31.0-37.0 [facility] Comment on above: Performed By: #### Merna [id number] #### [facility] [address] [place] [address] Grady Guerra M.D. [id number] Monocytes (Bld) [#/Vol] 0.54 10*3/uL Normal 0.30-0.90 [facility] Comment on above: Performed By: #### Merna [id number] #### [facility] [address] [place] [address] Grady Guerra M.D. [id number] Monocytes/100 WBC (Bld) 7.3 % Normal [facility] Comment on above: Performed By: #### Merna [id number] #### [facility] [address] [place] [address] Grady Guerra M.D. [id number] NEUTROPHILS ABSOLUTE COUNT 4.50 K/mcL Normal 1.70-7.00 [facility] Comment on above: Performed By: #### L [id number] #### [facility] [address] [place] [address] Grady Guerra M.D. [id number] Neutrophils/100 WBC (Bld) 60.5 % Normal [facility] Comment on above: Performed By: #### Merna [id number] #### [facility] [address] [place], [place] [address] Grady Guerra M.D. [id number] Platelet mean volume (Bld) [Entitic vol] 9.7 fL Normal 9.4-12.4 [facility] Comment on above: Performed By: #### L [id number] #### [facility] [address] [place] [address] Grady Guerra M.D. [id number] Platelets (Bld) [#/Vol] 213 10*3/uL Normal 150-400 [facility] Comment on above: Performed By: #### Merna [id number] #### [facility] [address] [place], [place] [address] Grady Guerra M.D. [id number] RBC (Bld) [#/Vol] 4.51 10*6/uL Normal 4.00-5.20 [facility] Comment on above: Performed By: #### Merna [id number] #### [facility] [address] [place], [place] [address] Grady Guerra M.D. [id number] WBC (Bld) [#/Vol] 7.43 10*3/uL Normal 4.50-11.00 [facility] Comment on above: Performed By: #### L [id number] #### [facility] [address] [place], [place] [address] Grady Guerra M.D. [id number] COMPREHENSIVE METABOLIC PANE [facility] 02-21-2024 Albumin [Mass/Vol] 3.7 g/dL Normal 3.2-5.2 [facility] Comment on above: Order Comment: [facility] has implemented the eGFR calculation approach that does not have a coefficient for race that conforms to the NKF-ASN Task Force Recommendations. Performed By: #### 4 [id number] #### [facility] [address] [place], [place] [address] Grady Guerra M.D. [id number] ALP [Catalytic activity/Vol] 103 U/L Normal 40-150 [facility] Comment on above: Order Comment: [facility] has implemented the eGFR calculation approach that does not have a coefficient for race that conforms to the NKF-ASN Task Force Recommendations. Performed By: #### 4 [id number] #### [facility] [address] [place], [place] [address] Grady Guerra M.D. [id number] ALT [Catalytic activity/Vol] 25 U/L Normal 0-35 U/L [facility] Comment on above: Order Comment: [facility] has implemented the eGFR calculation approach that does not have a coefficient for race that conforms to the NKF-ASN Task Force Recommendations. Performed By: #### 4 [id number] #### [facility] [address] [place] [address] Grady Guerra M.D. [id number] Anion gap [Moles/Vol] 15 mmol/L Normal 10-20 [facility] Comment on above: Order Comment: [facility] has implemented the eGFR calculation approach that does not have a coefficient for race that conforms to the NKF-ASN Task Force Recommendations. Performed By: #### 4 [id number] #### [facility] [address] [place] [address] Grady Guerra M.D. [id number] AST [Catalytic activity/Vol] 23 U/L Normal 0-35 U/L [facility] Comment on above: Order Comment: [facility] has implemented the eGFR calculation approach that does not have a coefficient for race that conforms to the NKF-ASN Task Force Recommendations. Result Comment: Dustyig htly Hemolyzed Performed By: #### 4 [id number] #### [facility] [address] [place] [address] Grady Guerra M.D. [id number] Bilirubin [Mass/Vol] 0.4 mg/dL Normal 0.0-1.3 [facility] Comment on above: Order Comment: [facility] has implemented the eGFR calculation approach that does not have a coefficient for race that conforms to the NKF-ASN Task Force Recommendations. Performed By: #### 4 [id number] #### [facility] [address] [place] [address] Grady Guerra M.D. [id number] Calcium [Mass/Vol] 8.8 mg/dL Normal 8.4-10.2 [facility] Comment on above: Order Comment: [facility] has implemented the eGFR calculation approach that does not have a coefficient for race that conforms to the NKF-ASN Task Force Recommendations. Performed By: #### 4 [id number] #### [facility] [address] [place] [address] Grady Guerra M.D. [id number] Chloride [Moles/Vol] 102 mmol/L Normal 98-108 [facility] Comment on above: Order Comment: [facility] has implemented the eGFR calculation approach that does not have a coefficient for race that conforms to the NKF-ASN Task Force Recommendations. Performed By: #### 4 [id number] #### [facility] [address] [place] [address] Grady Guerra M.D. [id number] Creatinine [Mass/Vol] 0.54 mg/dL Normal 0.40-1.10 [facility] Comment on above: Order Comment: [facility] has implemented the eGFR calculation approach that does not have a coefficient for race that conforms to the NKF-ASN Task Force Recommendations. Performed By: #### 4 [id number] #### [facility] [address] [place] [address] Grady Guerra M.D. [id number] EGFR 117 mL/min/1.73 m2 Normal >=60 [facility] Comment on above: Order Comment: [facility] has implemented the eGFR calculation approach that does not have a coefficient for race that conforms to the NKF-ASN Task Force Recommendations. Result Comment: Devora mated GFR was calculated using the 2020 CKD-EPI creatinine equation. Performed By: #### 4 [id number] #### [facility] [address] [place] [address] Grady Guerra M.D. [id number] Glucose [Mass/Vol] 349 mg/dL High 65-99 [facility] Comment on above: Order Comment: [facility] has implemented the eGFR calculation approach that does not have a coefficient for race that conforms to the NKF-ASN Task Force Recommendations. Performed By: #### 4 [id number] #### [facility] [address] [place] [address] Grady Guerra M.D. [id number] HCO3 (Bld) [Moles/Vol] 22 mmol/L Normal 21-[address] [facility] Comment on above: Order Comment: [facility] has implemented the eGFR calculation approach that does not have a coefficient for race that conforms to the NKF-ASN Task Force Recommendations. Performed By: #### 4 [id number] #### [facility] [address] [place] [address] Grady Guerra M.D. [id number] Potassium [Moles/Vol] 4.1 mmol/L Normal 3.5-5.1 [facility] Comment on above: Order Comment: [facility] has implemented the eGFR calculation approach that does not have a coefficient for race that conforms to the NKF-ASN Task Force Recommendations. Result Comment: Slig htly Hemolyzed Performed By: #### 4 [id number] #### [facility] [address] [place], [place] [address] Grady Guerra M.D. [id number] Protein [Mass/Vol] 6.8 g/dL Normal 6.0-8.0 [facility] Comment on above: Order Comment: [facility] has implemented the eGFR calculation approach that does not have a coefficient for race that conforms to the NKF-ASN Task Force Recommendations. Performed By: #### 4 [id number] #### [facility] [address] [place] [address] Grady Guerra M.D. [id number] Sodium [Moles/Vol] 135 mmol/L Normal 135-145 [facility] Comment on above: Order Comment: [facility] has implemented the eGFR calculation approach that does not have a coefficient for race that conforms to the NKF-ASN Task Force Recommendations. Performed By: #### 4 [id number] #### [facility] [address] [place] [address] Grady Guerra M.D. [id number] Urea nitrogen [Mass/Vol] 10 mg/dL Normal 8-25 [facility] Comment on above: Order Comment: [facility] has implemented the eGFR calculation approach that does not have a coefficient for race that conforms to the NKF-ASN Task Force Recommendations. Performed By: #### 4 [id number] #### [facility] [address] [place] [address] Grady Guerra M.D. [id number] Urea nitrogen/Creatinine [Mass ratio] 18.5 mg/mg Normal 10.0-20.0 [facility] Comment on above: Order Comment: [facility] has implemented the eGFR calculation approach that does not have a coefficient for race that conforms to the NKF-ASN Task Force Recommendations. Performed By: #### 4 [id number] #### [facility] [address] [place] [address] Grady Guerra M.D. [id number] CONSULTon 02-21-2024 CONSULT Behavioral Health Consult Patient Name: Sophie Munguia Admit Date: [id number] MR #: [id number] : 1980 Referring Provider: No ref. provider found Primary Care Provider: Carole, Physician Assessment Sophie Munguia is a 43 y.o. female presenting with SI. Diagnosis & Plan/Recommendations Hx of mood d/o Hx of malingering-likely ongoing Hx of cluster b traits Non adherence Discussed resources with patient and safety planning was done. She is open to getting additional resources such as [facility] and DV shelters. Will ask for assistance. She is future oriented and is resourceful. Discussed that she needs to follow up with outpatient mental health treatment. She states she can follow up with [facility]. She can return to [facility] or the ED if feeling unsafe. She has a chronically elevated suicide risk. She recently was inpt for 2 weeks but she states she did not benefit. She is no longer reporting psychosis and is not actively suicidal. She refuses medications. Additionally some risk factors for suicide include discharge from inpatient psych within the past 6 months, history of abuse, history of mood, anxiety, or psychotic disorder, and homeless or unstable housing. The patient's protective factors against suicide include denying current plan or intent for suicide, future orientation, insurance, no access to firearms, no history of self harming behaviors, no history of suicide attempts , outpatient psychiatric linkage, and social support. The patient's protective factors outweigh the risk factors . The patient's suicide risk is most closely tied to social stressors and would best be modified by assistance with social issues and outpatient mental health treatment. Collateral information unavailable. Currently, the appropriate disposition for this patient is discharge to the community. Thank you for this consult. Please call with questions. Our service will sign off. Please reconsult as needed. Reason for Consult: suicidal ideations and command auditory hallucinations, suspect in context of homelessness, suspect secondary gain behaviors History of Present Illness: Sophie Munguia is a 43 y.o. female with a history of repeated ED visits for threatening SI in the context of homelessness. She has admitted to feigning SI in this context and is presenting similarly during this admission. She states nothing has changed. She says that I need inpatient care to get on medications so I am not suicidal" but refuses medications offered. She has also been given outpatient resources but has not followed up. She refuses to talk at length but conversation returns back to her plan for reaching out to her friend in 2 weeks who she thinks she can live with. She states she will feel suicidal until she has housing. She said that she was at [facility] for 2-1/2 weeks and left "because I got mad at them." According to records she was referred to a alf that she did not want to go to so then threatened suicide so she was pink slipped to [facility]. She claims "all they gave me was Vistaril" and states it didn't help. She is also focused on food in the hospital and says she is very hungry. She is observed to be caring for her basic needs. She has admitted she does not not have a plan or intent to hurt herself because she does not want to be in pain. She does not identify other stressors. She does not endorse any mood symptoms outside of the context of homelessness. She is not reporting any psychotic symptoms and does not appear to be attending to internal stimuli. She states her goal is to live alone and states "I cannot live around other people." She also says she had housing but there were cockroaches there. She has also talked about needing to file for disability. She states she's been to a alf out of [facility] but not in [place]. Discussed extensively with SW. I saw the patient twice and she was more receptive to talking the second time. She was calm and understanding of the recommendations and plan. [facility]. Per [facility] Evidence supports a principal diagnosis of: Z59.0 - Homelessness Z76.5 - Malingering Cluster B traits Patient is a 43 y.o. female presenting with chief complaint of suicidal ideation in context of homelessness. Evidence supports a diagnosis as noted above as demonstrated by depressed mood, hopelessness, and suicidal thoughts without plan in context of ongoing homelessness and demands with assistance with housing. Patient's history of taking psychotropic medications or family history of genetically-pertinent psychiatric illness is unclear. There is additional contribution from homelessness and evidence of Cluster B traits . The patient's current condition demonstrates a need for discharge with recommendation for outpatient follow-up due to the following: The pt presents to the ED endorsing SI without plan or intent. Per chart revie (more content not included)... Normal [facility] DRUGS OF ABUSE SCREEN, URINE on 02-21-2024 AMPHETAMINE SCREEN, URINE Not detected Normal None Detected [facility] Comment on above: Order Comment: Scree n results should be used for treatment purposes only. Result Comment: Urin e Amphetamine Cutoff: < 1000 ng/mL = None Detected Performed By: #### 4 [id number] #### [facility] [address] [place] [address] Grady Guerra M.D. [id number] BARBITURATE SCREEN URINE Not detected Normal None Detected [facility] Comment on above: Order Comment: Scree n results should be used for treatment purposes only. Result Comment: Urin e Barbiturates Cutoff: < 200 ng/mL = None Detected Performed By: #### 4 [id number] #### [facility] [address] [place] [address] Grady Guerra M.D. [id number] BENZODIAZEPINE SCREEN, URINE Not detected Normal None Detected [facility] Comment on above: Order Comment: Scree n results should be used for treatment purposes only. Result Comment: Urin e Benzodiazepine Cutoff: < 200 ng/mL = None Detected Performed By: #### 4 [id number] #### [facility] [address] [place] [address] Grady Guerra M.D. [id number] BUPRENORPHINE, URINE Not detected Normal None Detected [facility] Comment on above: Order Comment: Scree n results should be used for treatment purposes only. Result Comment: Urin e Buprenorphine Cutoff: < 5 ng/mL = None Detected Performed By: #### 4 [id number] #### [facility] [address] [place] [address] Grady Guerra M.D. [id number] CANNABINOID SCREEN URINE Not detected Normal None Detected [facility] Comment on above: Order Comment: Scree n results should be used for treatment purposes only. Result Comment: Urin e Cannabinoids Cutoff: < 50 ng/mL = None Detected Performed By: #### 4 [id number] #### [facility] [address] [place] [address] Grady Guerra M.D. [id number] COCAINE, SCREEN URINE Not detected Normal None Detected [facility] Comment on above: Order Comment: Scree n results should be used for treatment purposes only. Result Comment: Urin e Cocaine Cutoff: < 300 ng/mL = None Detected Performed By: #### 4 [id number] #### [facility] [address] [place] [address] Grady Guerra M.D. [id number] FENTANYL, URINE Not detected Normal None Detected [facility] Comment on above: Order Comment: Scree n results should be used for treatment purposes only. Result Comment: Urin e Fentanyl Cutoff: < 1 ng/mL = None Detected Performed By: #### 4 [id number] #### [facility] [address] [place] [address] Grady Guerra M.D. [id number] METHADONE SCREEN, URINE Not detected Normal None Detected [facility] Comment on above: Order Comment: Scree n results should be used for treatment purposes only. Result Comment: Urin e Methadone Cutoff: < 300 ng/mL = None Detected Performed By: #### 4 [id number] #### [facility] [address] [place] [address] Grady Guerra M.D. [id number] OPIATE SCREEN URINE Not detected Normal None Detected [facility] Comment on above: Order Comment: Scree n results should be used for treatment purposes only. Result Comment: Urin e Opiates Cutoff: < 300 ng/mL = None Detected Performed By: #### 4 [id number] #### [facility] [address] [place] [address] Grady Guerra M.D. [id number] OXYCODONE SCREEN, URINE Not detected Normal None Detected [facility] Comment on above: Order Comment: Scree n results should be used for treatment purposes only. Result Comment: Urin e Oxycodone Cutoff: < 100 ng/mL = None Detected Performed By: #### 4 [id number] #### [facility] [address] Grady Guerra M.D. [id number] ED Prov Noteon 02-21-2024 ED Prov Note ED PROVIDER NOTE [facility] EMERGENCY [facility] NAME: Sophie Munguia AGE: 43 y.o. : 1980 VISIT DATE: 02/21/2024 CSN: [id number] PCP: No, Physician Chief Complaint Patient presents with Psychiatric Evaluation Suicidal 43-year-old female history of diabetes presents with complaint of hallucinations as well as suicidal ideation. She states that she was previously experiencing auditory hallucinations commanding her to kill herself although now she is no longer experiencing hallucinations he states that she is still feeling suicidal and states that if she leaves the emergency department tonight she will commit suicide although does not have a specific plan in place. She denies recreational drug or alcohol use tonight. In terms of medical complaints he said she has been having some shortness of breath as well as a dry nonproductive cough and a sore throat although she feels this may be related to her smoking. Past Medical History: Diagnosis Date Diabetes mellitus (HCC) Past Surgical History: Procedure Laterality Date SECTION History reviewed. No pertinent family history. Social History Socioeconomic History Marital status: Single Tobacco Use Smoking status: Every Day Packs/day: .5 Types: Cigarettes Smokeless tobacco: Never Substance and Sexual Activity Alcohol use: Not Currently Drug use: Yes Types: Marijuana Previous Medications Medication Sig glipiZIDE (GLUCOTROL) 5 MG tablet Take 1 (one) tablet (5 mg total) by mouth 2 (two) times a day before meals . hydrOXYzine (VISTARIL) 50 MG capsule Take 1 (one) capsule (50 mg total) by mouth every 6 (six) hours as needed for anxiety . metFORMIN (GLUCOPHAGE) 500 MG tablet Take 1 (one) tablet (500 mg total) by mouth 2 (two) times a day with meals . traZODone (DESYREL) 50 MG tablet Take 1 (one) tablet (50 mg total) by mouth nightly as needed for sleep . Ventolin HFA 90 mcg/actuation inhaler Inhale 2 (two) puffs every 4 to 6 hours as needed for wheezing . No Known Allergies Review of Systems Respiratory: Positive for cough and shortness of breath. Cardiovascular: Negative for chest pain. Gastrointestinal: Negative for abdominal pain, nausea and vomiting. Psychiatric/Behavioral: Positive for hallucinations and suicidal ideas. Patient Vitals for the past 24 hrs: BP Temp Temp src Pulse Resp SpO2 02/21/24 1623 110/71 98.4 degrees F (36.9 degrees C) Oral 82 16 98 % 02/21/24 1141 112/73 98.1 degrees F (36.7 degrees C) Oral 82 14 96 % 02/21/24 0738 (!) 157/85 -- -- 81 -- 98 % Physical Exam Constitutional: General: She is not in acute distress. Appearance: Normal appearance. HENT: Head: Normocephalic and atraumatic. Cardiovascular: Rate and Rhythm: Normal rate and regular rhythm. Heart sounds: No murmur heard. Pulmonary: Effort: Pulmonary effort is normal. No respiratory distress. Breath sounds: Normal breath sounds. No wheezing. Abdominal: General: Abdomen is flat. Palpations: Abdomen is soft. Tenderness: There is no abdominal tenderness. There is no guarding or rebound. Skin: General: Skin is warm and dry. Neurological: General: No focal deficit present. Mental Status: She is alert and oriented to person, place, and time. . Laboratory & Radiographic Imaging (if done): Results for orders placed or performed during the hospital encounter of 02/21/24 Comprehensive Metabolic Panel Result Value Ref Range Sodium 135 135 - 145 mmol/L Potassium 4.1 3.5 - 5.1 mmol/L Chloride 102 98 - 108 mmol/L Bicarbonate 22 21 - 32 mmol/L Anion Gap 15 10 - 20 mmol/L Glucose 349 (H) 65 - 99 mg/dL BUN 10 8 - 25 mg/dL Creatinine 0.54 0.40 - 1.10 mg/dL eGFR 117 >=60 mL/min/1.73 m2 BUN/Creatinine Ratio 18.5 10.0 - 20.0 Total Protein 6.8 6.0 - 8.0 g/dL Albumin 3.7 3.2 - 5.2 g/dL Calcium 8.8 8.4 - 10.2 mg/dL Alkaline Phosphatase 103 40 - 150 U/L AST 23 0-35 U/L U/L ALT 25 0-35 U/L U/L Total Bilirubin 0.4 0.0 - 1.3 mg/dL hCG, Blood,QUALitative Result Value Ref Range Beta-hCG Qual Negative Negative Drugs of Abuse Screen, Urine Result Value Ref Range Amphetamine Screen, Urine None Detected None Detected Barbiturate Screen, Urine None Detected None Detected Benzodiazepine Screen, Urine None Detected None Detected Cannabinoid Screen, Urine None Detected None Detected Cocaine, Screen Urine None Detected None Detected Methadone Screen, Urine None Detected None Detected Opiate Screen, Urine None Detected None Detected Oxycodone Screen, Urine None Detected None Detected Buprenorphine, Ur None Detected None Detected Fentanyl, Ur None Detected None Detected Gold Top Result Value Ref Range Extra Tube Hold for add-ons. Light Blue Top Result Value Ref Range Extra Tube Hold for add-ons. Mirza Top Result Value Ref Range Extra Tube Hold for add-ons. POC Glucose Result Value Ref Range Glucose 210 (H) 65 - 99 mg/dL CBC (more content not included)... Normal [facility] HCG, SERUM, QUALITATIVEon BETA-HCG QUAL BLOOD Negative Normal Negative [facility] Comment on above: Order Comment: Negat federico: The result is less than or equal to 5 mIU/mL of HCG. Performed By: #### 4 [id number] #### [facility] [address] [place] [address] Grady Guerra M.D. [id number] POC GLUCOSE - [facility] 024 Glucose [Mass/Vol] 210 mg/dL High 65-99 [facility] Comment on above: Performed By: #### 4 6932 #### [facility] [address] [place] [address] [id number] [facility] XR CHEST PA/APon 02-21-2024 XR CHEST PA/AP EXAMINATION: XR CHEST PA/AP 02/21/2024 5:12 am HISTORY: ORDERING SYSTEM PROVIDED HISTORY: cough/sob, TECHNOLOGIST PROVIDED HISTORY: Illness/Other Reason for exam: cough/sob Cancer History: . Surgery, RadiationHistory: . Encounter Type: Initial Additional signs and symptoms: . ORDERING SYSTEM PROVIDED DIAGNOSIS CODES: FINDINGS: LUNGS: No significant pulmonary parenchymal abnormalities. VASCULATURE: No increased pulmonary vasculature. PLEURA: No pneumothorax, effusion, or pleural thickening. CARDIAC: No cardiomegaly or cardiac silhouette abnormality. MEDIASTINUM: No visible mass or adenopathy. BONES: No fracture or visible bone lesion. OTHER: Negative. IMPRESSION: 1. No acute cardiopulmonary process. Workstation ID: [id number] Dictated by: OLIVER CHENEY on WedFebruary 21, 2024 5:24:35 AM EDT Transcribed by: OLIVER CHENEY on WedFebruary 21, 2024 5:24:35 AM EDT Finalized by: OLIVER CHENEY on WedFebruary 21, 2024 5:24:35 AM EDT Normal [facility] Comment on above: Order Comment: Injur y/Trauma or Illness?:Illness/Other How long have you had these symptoms (acute/chronic)?:Unknown Reason for exam?:cough/sob History of cancer?:. Surgeries, chemotherapy, or radiation?:. Type of Exam?:Initial Additional signs and symptoms?:. ALCOHOL, MEDICALon ALCOHOL MEDICAL < Normal <10.0 [facility] Comment on above: Result Comment: Alco hol cutoff: <10.00 mg/dL = None Detected Performed By: #### 4 5033 #### [facility] [address] [address] Washington Mayers M.D. [id number] BASIC METABOLIC PANELon 01-26 Anion gap [Moles/Vol] 19 mmol/L Normal 10-20 [facility] Comment on above: Order Comment: [facility] has implemented the eGFR calculation approach that does not have a coefficient for race that conforms to the NKF-ASN Task Force Recommendations. Performed By: #### 4 [id number] #### [facility] [address] [id number] Washington Mayers M.D. [id number] Calcium [Mass/Vol] 8.8 mg/dL Normal 8.4-10.2 [facility] Comment on above: Order Comment: [facility] has implemented the eGFR calculation approach that does not have a coefficient for race that conforms to the NKF-ASN Task Force Recommendations. Performed By: #### 4 [id number] #### [facility] [address] [address] Washington Mayers M.D. [id number] Chloride [Moles/Vol] 94 mmol/L Low 98-108 [facility] Comment on above: Order Comment: [facility] has implemented the eGFR calculation approach that does not have a coefficient for race that conforms to the NKF-ASN Task Force Recommendations. Performed By: #### 4 [id number] #### [facility] [address] [place], [place] [address] Washington Mayers M.D. [id number] Creatinine [Mass/Vol] 0.67 mg/dL Normal 0.40-1.10 [facility] Comment on above: Order Comment: [facility] has implemented the eGFR calculation approach that does not have a coefficient for race that conforms to the NKF-ASN Task Force Recommendations. Performed By: #### 4 [id number] #### [facility] [address] [place], [place] [address] Washington Mayers M.D. [id number] EGFR 111 mL/min/1.73 m2 Normal >=60 [facility] Comment on above: Order Comment: [facility] has implemented the eGFR calculation approach that does not have a coefficient for race that conforms to the NKF-ASN Task Force Recommendations. Result Comment: Devora mated GFR was calculated using the 2020 CKD-EPI creatinine equation. Performed By: #### 4 [id number] #### [facility] [address] [place], [place] [address] Washington Mayers M.D. [id number] Glucose [Mass/Vol] 558 mg/dL Off scale high 65-99 [facility] Comment on above: Order Comment: [facility] has implemented the eGFR calculation approach that does not have a coefficient for race that conforms to the NKF-ASN Task Force Recommendations. Performed By: #### 4 6124 #### [facility] [address] [place], [place] [address] Washington Mayers M.D. [id number] HCO3 (Bld) [Moles/Vol] 19 mmol/L Low 21-32 [facility] Comment on above: Order Comment: [facility] has implemented the eGFR calculation approach that does not have a coefficient for race that conforms to the NKF-ASN Task Force Recommendations. Performed By: #### 4 [id number] #### [facility] [address] [place], [place] [address] Washington Mayers M.D. [id number] Potassium [Moles/Vol] 4.2 mmol/L Normal 3.5-5.1 [facility] Comment on above: Order Comment: [facility] has implemented the eGFR calculation approach that does not have a coefficient for race that conforms to the NKF-ASN Task Force Recommendations. Performed By: #### 4 [id number] #### [facility] [address] [address] Washington Mayers M.D. [id number] Sodium [Moles/Vol] 128 mmol/L Low 135-145 [facility] Comment on above: Order Comment: [facility] has implemented the eGFR calculation approach that does not have a coefficient for race that conforms to the NKF-ASN Task Force Recommendations. Performed By: #### 4 [id number] #### [facility] [address] [address] Washington Mayers M.D. [id number] Urea nitrogen [Mass/Vol] 17 mg/dL Normal 8-25 [facility] Comment on above: Order Comment: [facility] has implemented the eGFR calculation approach that does not have a coefficient for race that conforms to the NKF-ASN Task Force Recommendations. Performed By: #### 4 [id number] #### [facility] [address] [address] Washington Mayers M.D. [id number] Urea nitrogen/Creatinine [Mass ratio] 25.4 mg/mg High 10.0-20.0 [facility] Comment on above: Order Comment: [facility] has implemented the eGFR calculation approach that does not have a coefficient for race that conforms to the NKF-ASN Task Force Recommendations. Performed By: #### 4 [id number] #### [facility] [address] [id number] Washington Mayers M.D. [id number] BETA-HYDROXYBUTYRATEon 02-18 BETA-HYDROXYBUTYRATE 0.3 mmol/L Normal 0.0-0.3 [facility] Comment on above: Performed By: #### 4 5139 #### [facility] [address] [place] [address] Washington Mayers M.D. [id number] CBC WITH AUTO DIFFERENTIALon 02-19-2024 AUTO NRBC 0.0 % Normal [facility] Comment on above: Performed By: #### 4 [id number] #### [facility] [address] [address] [id number] [facility] AUTO NRBC ABS COUNT 0.00 K/mcL Normal 0.00-0.00 [facility] Comment on above: Performed By: #### 4 [id number] #### [facility] [address] [address] [id number] [facility] BASOPHILS ABSOLUTE COUNT 0.06 K/mcL Normal 0.00-0.30 [facility] Comment on above: Performed By: #### 4 [id number] #### [facility] [address] [place] [address] [id number] [facility] Basophils/100 WBC (Bld) 0.9 % Normal [facility] Comment on above: Performed By: #### 4 [id number] #### [facility] [address] [place] [address] [id number] [facility] Eosinophils (Bld) [#/Vol] 0.18 10*3/uL Normal 0.00-0.50 [facility] Comment on above: Performed By: #### 4 [id number] #### [facility] [address] [place] [address] [id number] [facility] Eosinophils/100 WBC (Bld) 2.6 % Normal [facility] Comment on above: Performed By: #### 4 [id number] #### [facility] [address] [address] [id number] [facility] Erythrocyte distribution width (RBC) [Ratio] 12.9 % Normal 11.6-14.8 [facility] Comment on above: Performed By: #### 4 [id number] #### [facility] [address] [address] [id number] [facility] Hematocrit (Bld) [Volume fraction] 39.3 % Normal 36.0-46.0 [facility] Comment on above: Performed By: #### 4 [id number] #### [facility] [address] [address] [id number] [facility] Hemoglobin (Bld) [Mass/Vol] 13.3 g/dL Normal 12.0-16.0 [facility] Comment on above: Performed By: #### 4 [id number] #### [facility] [address] [address] [id number] [facility] IG ABSOLUTE 0.04 K/mcL Normal 0.00-0.30 [facility] Comment on above: Performed By: #### 4 [id number] #### [facility] [address] [address] [id number] [facility] IG PERCENT 0.60 % Normal [facility] Comment on above: Result Comment: The IG parameter is the percentage of metamyelocytes, myelocytes and promyelocytes. An immature granulocyte count (IG) of 1% or more suggests the possibility of infection, an IG count of 3% is very likely related to an infection. Performed By: #### 4 [id number] #### [facility] [address] [address] [id number] [facility] Lymphocytes (Bld) [#/Vol] 2.31 10*3/uL Normal 0.90-4.00 [facility] Comment on above: Performed By: #### 4 [id number] #### [facility] [address] [address] [id number] [facility] Lymphocytes/100 WBC (Bld) 33.2 % Normal [facility] Comment on above: Performed By: #### 4 [id number] #### [facility] [address] [address] [id number] [facility] MCH (RBC) [Entitic mass] 29.1 pg Normal 26.0-34.0 [facility] Comment on above: Performed By: #### 4 [id number] #### [facility] [address] [address] [id number] [facility] MCV (RBC) [Entitic vol] 86.0 fL Normal 80.0-100.0 [facility] Comment on above: Performed By: #### 4 [id number] #### [facility] [address] [address] [id number] [facility] MEAN CORPUSCULAR HEMOGLOBIN CONC 33.8 g/dL Normal 31.0-37.0 [facility] Comment on above: Performed By: #### 4 [id number] #### [facility] [address] [address] [id number] [facility] Monocytes (Bld) [#/Vol] 0.57 10*3/uL Normal 0.30-0.90 [facility] Comment on above: Performed By: #### 4 [id number] #### [facility] [address] [address] [id number] [facility] Monocytes/100 WBC (Bld) 8.2 % Normal [facility] Comment on above: Performed By: #### 4 [id number] #### [facility] [address] [address] [id number] [facility] NEUTROPHILS ABSOLUTE COUNT 3.80 K/mcL Normal 1.70-7.00 [facility] Comment on above: Performed By: #### 4 [id number] #### [facility] [address] [address] [id number] [facility] Neutrophils/100 WBC (Bld) 54.5 % Normal [facility] Comment on above: Performed By: #### 4 [id number] #### [facility] [address] [address] [id number] [facility] Platelet mean volume (Bld) [Entitic vol] 10.0 fL Normal 9.4-12.4 [facility] Comment on above: Performed By: #### 4 [id number] #### [facility] [address] [address] [id number] [facility] Platelets (Bld) [#/Vol] 229 10*3/uL Normal 150-400 [facility] Comment on above: Performed By: #### 4 [id number] #### [facility] [address] [address] [id number] [facility] RBC (Bld) [#/Vol] 4.57 10*6/uL Normal 4.00-5.20 [facility] Comment on above: Performed By: #### 4 [id number] #### [facility] [address] [address] [id number] [facility] WBC (Bld) [#/Vol] 6.96 10*3/uL Normal 4.50-11.00 [facility] Comment on above: Performed By: #### 4 [id number] #### [facility] [address] [address] [id number] [facility] DRUGS OF ABUSE SCREEN, URINE on 02-19-2024 AMPHETAMINE SCREEN, URINE Not detected Normal None Detected [facility] Comment on above: Order Comment: Criti shannen result acted upon time of test. Test performed at bedside. Result Comment: Urin e Amphetamine Cutoff: < 1000 ng/mL = None Detected Performed By: #### 4 [id number] #### [facility] [address] [address] [id number] [facility] BARBITURATE S[facility]EN URINE Not detected Normal None Detected [facility] Comment on above: Order Comment: Criti shannen result acted upon time of test. Test performed at bedside. Result Comment: Urin e Barbiturates Cutoff: < 200 ng/mL = None Detected Performed By: #### 4 [id number] #### [facility] [address] [address] [id number] [facility] BENZODIAZEPINE SCREEN, URINE Not detected Normal None Detected [facility] Comment on above: Order Comment: Criti shannen result acted upon time of test. Test performed at bedside. Result Comment: Urin e Benzodiazepine Cutoff: < 200 ng/mL = None Detected Performed By: #### 4 [id number] #### [facility] [address] [address] [id number] [facility] BUPRENORPHINE, URINE Not detected Normal None Detected [facility] Comment on above: Order Comment: Criti shannen result acted upon time of test. Test performed at bedside. Result Comment: Urin e Buprenorphine Cutoff: < 5 ng/mL = None Detected Performed By: #### 4 [id number] #### [facility] [address] [address] [id number] CPOC CANNABINOID SCREEN URINE Not detected Normal None Detected [facility] Comment on above: Order Comment: Criti shannen result acted upon time of test. Test performed at bedside. Result Comment: Urin e Cannabinoids Cutoff: < 50 ng/mL = None Detected Performed By: #### 4 [id number] #### [facility] [address] [address] [id number] [facility] COCAINE, SCREEN URINE Not detected Normal None Detected [facility] Comment on above: Order Comment: Criti shannen result acted upon time of test. Test performed at bedside. Result Comment: Urin e Cocaine Cutoff: < 300 ng/mL = None Detected Performed By: #### 4 [id number] #### [facility] [address] [address] [id number] [facility] FENTANYL, URINE Not detected Normal None Detected [facility] Comment on above: Order Comment: Criti shannen result acted upon time of test. Test performed at bedside. Result Comment: Urin e Fentanyl Cutoff: < 1 ng/mL = None Detected Performed By: #### 4 [id number] #### [facility] [address] [address] [id number] CPOC METHADONE SCREEN, URINE Not detected Normal None Detected [facility] Comment on above: Order Comment: Criti shannen result acted upon time of test. Test performed at bedside. Result Comment: Urin e Methadone Cutoff: < 300 ng/mL = None Detected Performed By: #### 4 [id number] #### [facility] [address] [address] [id number] CPOC OPIATE SCREEN URINE Not detected Normal None Detected [facility] Comment on above: Order Comment: Criti shannen result acted upon time of test. Test performed at bedside. Result Comment: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 MCHC (RBC) [Mass/Vol] 34.3 g/dL 32-36 [facility] No Panel InformationOrdered By: Hilton Pizarro on 05-17-2023 Estimated Creatinine Clearance Calc 63.65 ml/min [facility] Estimated GFR (MDRD) Amer 92 mL/min >60 [facility] Comment on above: GFR Calc Estimated GFR (MDRD) Non-Af Amer 76 mL/min >60 [facility] Comment on above: Non- GFR Calc Ethyl Alcohol Level < 3.0 mg/dL [facility] Comment on above: The serum:whole bloo d ethanol ratio is approximately 1.14and varies slightly with hematocrit. Medical Alcohol reference interval and critical value innon-tolerant individuals; 50 - 100 Impairment 100 Intoxication 100 - 250 Severe Poisoning 250 - 400 Deep/possible fatal coma MDMA (Ecstasy) Screen Negative < 500 ng/mL [facility] Urine Barbiturates Screen Negative < 200 ng/mL [facility] Urine Drug Screen Comment [facility] Comment on above: CONFIRMATORY TESTING FOR ALL POSITIVE URINE DRUG SCREENRESULTS WILL ONLY BE SENT OUT UPON PHYSICIAN ORDER. VISTA Urine Drug Screen methods provide only preliminaryanalytical test results. A more specific alternate chemicalmethod must be used in order to obtain a confirmedanalytical result. Gas chromatography/mass spectrometery(GC/MS) is the preferred confirmatory method. Clinicalconsideration and professional judgement should be appliedto any drug of abuse test result, particularly whenpreliminary positive results are used. URINE TCA TESTING MUST BE ORDERED SEPARATELY. USE TESTMNEMONIC: [facility] Urine Methadone Screen Negative < 300 ng/mL [facility] Platelets bldOrdered By: Bala Pizarro on 05-17-2023 Platelets (Bld) [#/Vol] 223 10*3/uL 150-450 [facility] Serum or plasma acetone rolando urement (mass/volume)Ordered By: Hilton Pizarro on 05-17-2023 Acetone [Mass/Vol] Negative NEG [facility] Serum or plasma calcium rolando urement (mass/volume)Ordered By: Hilton Pizarro on 05-17-2023 Calcium [Mass/Vol] 8.8 mg/dL 8.5-10.1 [facility] Serum or plasma creatinine m easurement (mass/volume)Ordered By: Hilton Pizarro on 05-17-2023 Creatinine [Mass/Vol] 0.86 mg/dL 0.55-1.02 [facility] Comment on above: The validity of the calculated GFR & GFRAA in patients over 70 years has not been determined. Clinical correlation is essential. Serum or plasma urea nitroge n measurement (mass/volume)Ordered By: Hilton Pizarro on 05-17-2023 Urea nitrogen [Mass/Vol] 11 mg/dL 7-18 [facility] Thin prep Papanicolaou smear with manual screeningOrdered By: Hilton Pizarro on 05-17-2023 Thin prep Papanicolaou smear with manual screening 6 5-15 [facility] Urine phencyclidine (PCP) de tectionOrdered By: Hilton Pizarro on 05-17-2023 Phencyclidine Ql (U) Negative < 25 ng/mL [facility] Glucose Glucometer (BldC) [M ass/Vol]Ordered By: Andrew Ramirez on 04-30-2023 Glucose [Mass/Vol] 129 mg/dL 74-106 [facility] Comment on above: MANAGEMENT OF PATIEN T CARE PER NURSING PROTOCOL Basophil percentageOrdered B y: Andrew Ramirez on 04-29-2023 Basophil percentage 0 SEEN /hpf 0-5 [facility] Chloride [Moles/Vol] 102 mmol/L 98-107 [facility] Glucose [Mass/Vol] 290 mg/dL 74-106 [facility] Comment on above: Glucose result great er than or equal to 200 mg/dLsuggests DIABETES MELLITUS per A.D.A. criteria. Potassium [Moles/Vol] 3.9 mmol/L 3.5-5.1 [facility] Sodium [Moles/Vol] 135 mmol/L 136-145 [facility] Bilirubin Test strip Ql (U)O rdered By: Andrew Ramirez on 04-29-2023 Bilirubin Ql (U) Negative Negative [facility] Ketones Test strip Ql (U)Ord ered By: Andrew Ramirez on 04-29-2023 Ketones Ql (U) Negative Negative [facility] Laboratory - Chemistry and C hemistry - challengeOrdered By: Andrew Ramirez on 04-29-2023 CO2 [Moles/Vol] 27.0 mmol/L 21.0-32.0 [facility] Urea nitrogen/Creatinine [Mass ratio] 21.3 mg/mg 10-20 [facility] Mucus LM Ql (Urine sed)Order ed By: Andrew Ramirez on 04-29-2023 Mucus Ql (Urine sed) 0 SEEN /hpf [facility] Nitrite Test strip Ql (U)Ord ered By: Andrew Ramirez on 04-29-2023 Nitrite Ql (U) Negative Negative [facility] No Panel InformationOrdered By: Andrew Ramirez on 04-29-2023 Estimated Creatinine Clearance Calc 68.42 ml/min [facility] Estimated GFR (MDRD) Amer 101 mL/min >60 [facility] Comment on above: GFR Calc Estimated GFR (MDRD) Non-Af Amer 83 mL/min >60 [facility] Comment on above: Non- GFR Calc Protein Test strip Ql (U)Ord ered By: Andrew Ramirez on 04-29-2023 Protein Ql (U) 15 mg/dl Negative [facility] Serum or plasma calcium rolando urement (mass/volume)Ordered By: Andrew Ramirez on 04-29-2023 Calcium [Mass/Vol] 9.1 mg/dL 8.5-10.1 [facility] Serum or plasma creatinine m easurement (mass/volume)Ordered By: Andrew Ramirez on 04-29-2023 Creatinine [Mass/Vol] 0.80 mg/dL 0.55-1.02 [facility] Comment on above: The validity of the calculated GFR & GFRAA in patients over 70 years has not been determined. Clinical correlation is essential. Serum or plasma urea nitroge n measurement (mass/volume)Ordered By: Andrew Ramirez on 04-29-2023 Urea nitrogen [Mass/Vol] 17 mg/dL 7-18 [facility] Squamous epithelial cells de tection in urine sediment by light microscopyOrdered By: Andrew Ramirez on 04-29-2023 Epithelial cells.squamous LM Ql (Urine sed) 0-5 SEEN /hpf 5-10 [facility] Thin prep Papanicolaou smear with manual screeningOrdered By: Andrew Ramirez on 04-29-2023 Thin prep Papanicolaou smear with manual screening 6 5-15 [facility] Urine blood detectionOrdered By: Andrew Ramirez on 04-29-2023 RBC Ql (U) Negative Negative [facility] RBC Ql (U) 0 SEEN /hpf 0-5 [facility] Urine clarityOrdered By: Doroteo Ramirez on 04-29-2023 Clarity (U) Clear Clear [facility] Urine color determinationOrd ered By: Andrew Ramirez on 04-29-2023 Color (U) Yellow Yellow [facility] Urine glucose detectionOrder ed By: Andrew Ramirez on 04-29-2023 Glucose Ql (U) 1000 mg/dl Normal [facility] Urine leukocyte esterase det ection by dipstickOrdered By: Andrew Ramirez on 04-29-2023 Leukocyte esterase Test strip Ql (U) Negative Negative [facility] Urine pHOrdered By: Andrew Ramirez on 04-29-2023 pH (U) 6.0 [pH] 5.0 - 8.0 [facility] Urine sediment bacteria coun t by microscopy (number/high power field)Ordered By: Andrew Ramirez on 04-29-2023 Bacteria LM.HPF (Urine sed) [#/Area] RARE /hpf None Seen [facility] Urine specific gravity measu rementOrdered By: Andrew Ramirez on 04-29-2023 Specific gravity (U) [Rel density] 1.020 1.002-1.030 [facility] Urobilinogen Auto test strip Ql (U)Ordered By: Andrew Ramirez on 04-29-2023 Urobilinogen Ql (U) Normal mg/dl Normal [facility] Absolute lymphocyte countOrd ered By: Daniele Juarez on 03-25-2023 Lymphocytes Auto (Unsp spec) [#/Vol] 1.13 10*3/uL 0.83-4.51 [facility] Basophil percentageOrdered B y: Daniele Juarez on 03-25-2023 Basophils/100 WBC (Bld) 0.7 % 0-1 [facility] Chloride [Moles/Vol] 100 mmol/L 98-107 [facility] Eosinophils/100 WBC (Bld) 1.8 % 0-5 [facility] Glucose [Mass/Vol] 480 mg/dL 74-106 [facility] Comment on above: Critical Result(s) C alled at: 10:53:01 03/25/2023 by: Felisa Dumont. Results read back by same.Glucose result greater than or equal to 200 mg/dLsuggests DIABETES MELLITUS per A.D.A. criteria. Neutrophils (Bld) [#/Vol] 3.9 10*3/uL 2.0-7.7 [facility] Neutrophils/100 WBC (Bld) 71.5 % 47-70 [facility] Potassium [Moles/Vol] 4.4 mmol/L 3.5-5.1 [facility] Sodium [Moles/Vol] 134 mmol/L 136-145 [facility] WBC (Bld) [#/Vol] 5.5 10*3/uL 4.4-11.0 [facility] Blood erythrocytes count (nu mber/volume)Ordered By: Daniele Juarez on 03-25-2023 RBC (Bld) [#/Vol] 4.83 10*6/uL 4.2-5.4 [facility] Blood hemoglobin measurement (mass/volume)Ordered By: Daniele Juarez on 03-25-2023 Hemoglobin (Bld) [Mass/Vol] 14.1 g/dL 12.0-15.0 [facility] Blood lymphocytes/100 leukoc ytesOrdered By: Daniele Juarez on 03-25-2023 Lymphocytes/100 WBC (Bld) 20.5 % 19-41 [facility] Blood monocytes/100 leukocyt esOrdered By: Daniele Juarez on 03-25-2023 Monocytes/100 WBC (Bld) 5.1 % 0-10 [facility] Blood platelet mean volumeOr dered By: Daniele Juarez on 03-25-2023 Platelet mean volume (Bld) [Entitic vol] 9.7 fL 6.2-12.0 [facility] Determination of erythrocyte mean corpuscular volume (MCV)Ordered By: Daniele Juarez on 03-25-2023 MCV (RBC) [Entitic vol] 87.8 fL 81-99 [facility] Glucose Glucometer (dC) [M ass/Vol]Ordered By: Daniele Juarez on 03-25-2023 Glucose [Mass/Vol] 338 mg/dL 74-106 [facility] Comment on above: MANAGEMENT OF PATIEN T CARE PER NURSING PROTOCOL Hematocrit Auto (Bld) [Volum e fraction]Ordered By: Daniele Juarez on 03-25-2023 Hematocrit (Bld) [Volume fraction] 42.4 % 37-47 [facility] Laboratory - Chemistry and C hemistry - challengeOrdered By: Daniele Juarez on 03-25-2023 CO2 [Moles/Vol] 26.0 mmol/L 21.0-32.0 [facility] Urea nitrogen/Creatinine [Mass ratio] 21.6 mg/mg 10-20 [facility] Laboratory - Hematology and Cell countsOrdered By: Daniele Juarez on 03-25-2023 Erythrocyte distribution width (RBC) [Entitic vol] 40.3 fL 35.1-43.9 [facility] Erythrocyte distribution width (RBC) [Ratio] 12.5 % 11.6-14.6 [facility] Immature granulocytes/100 WBC (Bld) 0.400 % 0.0-0.9 [facility] Comment on above: IG% - Immature Granu locytes (promyelocytes, myelocytes and metamyelocytes) > 1% indicates that a LEFT SHIFT is Present. MCH (RBC) [Entitic mass] 29.2 pg 27.0-32.0 [facility] Nucleated RBC/100 WBC (Bld) [Ratio] 0 % 0-5 [facility] MCHC Auto (RBC) [Mass/Vol]Or dered By: Daniele Juarez on 03-25-2023 MCHC (RBC) [Mass/Vol] 33.3 g/dL 32-36 [facility] No Panel InformationOrdered By: Daniele Juarez on 03-25-2023 Estimated GFR (MDRD) Amer 110 mL/min >60 [facility] Comment on above: GFR Calc Estimated GFR (MDRD) Non-Af Amer 91 mL/min >60 [facility] Comment on above: Non- GFR Calc Platelets bldOrdered By: Benjamin Juarez on 03-25-2023 Platelets (Bld) [#/Vol] 252 10*3/uL 150-450 [facility] Serum or plasma calcium rolando urement (mass/volume)Ordered By: Daniele Juarez on 03-25-2023 Calcium [Mass/Vol] 9.2 mg/dL 8.5-10.1 [facility] Serum or plasma creatinine m easurement (mass/volume)Ordered By: Daniele Juarez on 03-25-2023 Creatinine [Mass/Vol] 0.74 mg/dL 0.55-1.02 [facility] Comment on above: The validity of the calculated GFR & GFRAA in patients over 70 years has not been determined. Clinical correlation is essential. Serum or plasma urea nitroge n measurement (mass/volume)Ordered By: Daniele Juarez on 03-25-2023 Urea nitrogen [Mass/Vol] 16 mg/dL 7-18 [facility] Thin prep Papanicolaou smear with manual screeningOrdered By: Daniele Juarez on 03-25-2023 Thin prep Papanicolaou smear with manual screening 8 5-15 [facility] Beta-hydroxybutyrateon 02-02 BHOB 0.19 mmol/L Normal 0.00-0.27 [facility] Comment on above: Performed By: #### C MP, [id number] #### [place] [address] Ph. [phone] Complete Blood Count with Au to Diffon 02-02-2022 BASO# BASO#: 0.0 Normal 0.0-0.1 [facility] Comment on above: Performed By: #### C BCAD #### [place] [address] Ph. [phone] Basophils/100 WBC (Bld) 1 % Normal 0-1 [facility] Comment on above: Performed By: #### C BCAD #### [place] [address] Ph. [phone] Eosinophils (Bld) [#/Vol] 0.1 10*3/uL Normal 0.0-0.5 [facility] Comment on above: Performed By: #### C BCAD #### [place] [address] Ph. [phone] Eosinophils/100 WBC (Bld) 1 % Normal 0-5 [facility] Comment on above: Performed By: #### C BCAD #### [place] [address] Ph. [phone] Erythrocyte distribution width (RBC) [Ratio] 13.3 % Normal 11.5-14.5 [facility] Comment on above: Performed By: #### C BCAD #### [place] [address] Ph. [phone] Hematocrit (Bld) [Volume fraction] 38 % Normal 36.0-47.0 [facility] Comment on above: Performed By: #### C BCAD #### [place] [id number] Ph. [phone] Hemoglobin (Bld) [Mass/Vol] 13.1 g/dL Normal 12.0-16.0 [facility] Comment on above: Performed By: #### C BCAD #### [address] [address] Ph. [phone] Lymphocytes (Bld) [#/Vol] 0.9 10*3/uL Low 1.0-4.0 [facility] Comment on above: Performed By: #### C BCAD #### [place] [address] Ph. [phone] Lymphocytes/100 WBC (Bld) 15 % Low 20-40 [facility] Comment on above: Performed By: #### C BCAD #### [place] [address] Ph. [phone] MCH (RBC) [Entitic mass] 29.8 pg Normal 27.0-35.0 [facility] Comment on above: Performed By: #### C BCAD #### [address] [address] Ph. [phone] MCHC (RBC) [Mass/Vol] 34.5 g/dL Normal 32.0-36.0 [facility] Comment on above: Performed By: #### C BCAD #### [place] [id number] Ph. [phone] MCV (RBC) [Entitic vol] 87 fL Normal 80-100 [facility] Comment on above: Performed By: #### C BCAD #### [place] [id number] Ph. [phone] Monocytes (Bld) [#/Vol] 0.4 10*3/uL Normal 0.3-1.0 [facility] Comment on above: Performed By: #### C BCAD #### [address] [address] Ph. [phone] Monocytes/100 WBC (Bld) 6 % Normal 1-15 [facility] Comment on above: Performed By: #### C BCAD #### [address] [address] Ph. [phone] Neutrophils (Bld) [#/Vol] 4.4 10*3/uL Normal 1.8-7.7 [facility] Comment on above: Performed By: #### C BCAD #### [place] [address] Ph. [phone] Neutrophils/100 WBC (Bld) 77 % High 50-70 [facility] Comment on above: Performed By: #### C BCAD #### [address] [address] Ph. [phone] Platelet mean volume (Bld) [Entitic vol] 10 fL Normal 9.4-12.3 [facility] Comment on above: Performed By: #### C BCAD #### [address] [address] Ph. [phone] Platelets (Bld) [#/Vol] 204 10*3/uL Normal 150-450 [facility] Comment on above: Performed By: #### C BCAD #### [address] [address] Ph. [phone] RBC (Bld) [#/Vol] 4.39 10*6/uL Normal 4.20-5.40 [facility] Comment on above: Performed By: #### C BCAD #### [address] [address] Ph. [phone] WBC (Bld) [#/Vol] 5.7 10*3/uL Normal 3.7-11.0 [facility] Comment on above: Performed By: #### C BCAD #### [address] [address] Ph. [phone] Comprehensive Metabolic Pane rayne 02-02-2022 Albumin [Mass/Vol] 4.1 g/dL Normal 3.5-5.0 [facility] Comment on above: Performed By: #### C MP, [id number] #### [address] [address] Ph. [phone] ALP [Catalytic activity/Vol] 103 U/L Normal 38-126 [facility] Comment on above: Performed By: #### C LAURA, [id number] #### [address] [address] Ph. [phone] ALT [Catalytic activity/Vol] 42 U/L High 0-35 [facility] Comment on above: Performed By: #### C LAURA, [id number] #### [address] [address] Ph. [phone] AST [Catalytic activity/Vol] 39 U/L High 14-36 [facility] Comment on above: Performed By: #### C MP, [id number] #### [address] [address] Ph. [phone] Bilirubin [Mass/Vol] 0.7 mg/dL Normal 0.2-1.3 [facility] Comment on above: Performed By: #### C LAURA, [id number] #### [address] [address] Ph. [phone] Calcium [Mass/Vol] 9.4 mg/dL Normal 8.4-10.2 [facility] Comment on above: Performed By: #### C MP, [id number] #### [address] [address] Ph. [phone] Chloride [Moles/Vol] 102 mmol/L Normal 98-107 [facility] Comment on above: Performed By: #### C LAURA, [id number] #### [place] [address] Ph. [phone] CO2 [Moles/Vol] 22 mmol/L Normal 22-32 [facility] Comment on above: Performed By: #### C MP, [id number] #### [place] [address] Ph. [phone] Creatinine [Mass/Vol] 0.61 mg/dL Normal 0.52-1.04 [facility] Comment on above: Performed By: #### C LAURA, [id number] #### [place] [address] Ph. [phone] GFR/1.73 sq M.predicted among non-blacks MDRD (S/P/Bld) [Vol rate/Area] 111 mL/min/{1.73_m2} Normal >60 [facility] Comment on above: Result Comment: Stag e 1 Kidney damage (e.g., protein in the urine) with normal GFR >=90\\X0D0A\\Stage 2 Kidney damage with mild decrease in GFR 60-89\\X0D0A\\Stage 3a Moderate decrease in GFR 45-59\\X0D0A\\Stage 3b Moderate decrease in GFR 30-44\\X0D0A\\Stage 4 Severe reduction in GFR 15-29\\X0D0A\\Stage 5 Kidney failure <15 Performed By: #### C LAURA, [id number] #### [place] [address] Ph. [phone] Glucose [Mass/Vol] 478 mg/dL High 65-100 [facility] Comment on above: Performed By: #### C MP, [id number] #### [place] [address] Ph. [phone] Potassium [Moles/Vol] 4.5 mmol/L Normal 3.6-5.0 [facility] Comment on above: Performed By: #### C MP, [id number] #### [address] [address] Ph. [phone] Protein [Mass/Vol] 7.0 g/dL Normal 6.3-8.2 [facility] Comment on above: Performed By: #### C MP, [id number] #### [address] [address] Ph. [phone] Sodium [Moles/Vol] 132 mmol/L Low 135-145 [facility] Comment on above: Performed By: #### C LAURA, [id number] #### [address] [address] Ph. [phone] Urea nitrogen [Mass/Vol] 16 mg/dL Normal 7-17 [facility] Comment on above: Performed By: #### C LAURA, [id number] #### [place] [id number] Ph. [phone] HCG Serum, Qualitativeon SPREG Negative Normal Negative [facility] Comment on above: Result Comment: Nega tive result = No presence of detectable hCG\\X0D0A\\Positive result = hCG concentration detected greater than or equal to 25 mIU/mL\\X0D0A\\\\X0D0A\\Positive results should be evaluated with respect to the clinical situation. False positive results have been known to occur in the presence of heterophile antibodies or non-specific proteins. If a qualitative interpretation is inconsistent with the clinical evidence, results should be confirmed with quantitative hCG testing. Performed By: #### O [id number] #### [place] [id number] Ph. [phone] Urine Drug Screenon 02-03-20 22 AMPH Negative Normal Negative [facility] Comment on above: Result Comment: Cut- off level: 1000 ng/mL Performed By: #### A 1C, CBCAD #### [place] [id number] Ph. [phone] JOSAFAT Negative Normal Negative [facility] Comment on above: Result Comment: Cut- off level: 300 ng/mL Performed By: #### A 1C, CBCAD #### [place] [id number] Ph. [phone] BENZO Negative Normal Negative [facility] Comment on above: Result Comment: Cut- off level: 300 ng/mL Performed By: #### A 1C, CBCAD #### [place] [id number] Ph. [phone] ANGELIA Negative Normal Negative [facility] Comment on above: Result Comment: Cut- off level: 300 ng/mL Performed By: #### A 1C, CBCAD #### [place] [id number] Ph. [phone] MDMA Negative Normal Negative [facility] Comment on above: Result Comment: Cut- off level: 500 ng/mL Performed By: #### A 1C, CBCAD #### [place] [id number] Ph. [phone] METHA Negative Normal Negative [facility] Comment on above: Result Comment: Cut- off level: 300 ng/mL Performed By: #### A 1C, CBCAD #### [address] [address] Ph. [phone] METHAMPH Negative Normal Negative [facility] Comment on above: Result Comment: Cut- off level: 1000 ng/mL Performed By: #### A 1C, CBCAD #### [address] [address] Ph. [phone] OPI Negative Normal Negative [facility] Comment on above: Result Comment: Cut- off level; 2000 ng/mL Performed By: #### A 1C, CBCAD #### [place] [id number] Ph. [phone] PCP Negative Normal Negative [facility] Comment on above: Result Comment: Cut- off level: 25 ng/mL Performed By: #### A 1C, CBCAD #### [place] [address] Ph. [phone] THC Negative Normal Negative [facility] Comment on above: Result Comment: Cut- off level: 50 ng/mL Performed By: #### A 1C, CBCAD #### [place] [address] Ph. [phone] Complete Blood Count with Au to Diffon 01-21-2022 Basophils (Bld) [#/Vol] 0.1 10*3/uL Normal 0.0-0.1 [facility] Comment on above: Performed By: #### A 1C, CBCAD #### [place] [address] Ph. [phone] Basophils/100 WBC (Bld) 1 % Normal 0-1 [facility] Comment on above: Performed By: #### A 1C, CBCAD #### [place] [address] Ph. [phone] Eosinophils (Bld) [#/Vol] 0.1 10*3/uL Normal 0.0-0.5 [facility] Comment on above: Performed By: #### A 1C, CBCAD #### [place] [address] Ph. [phone] Eosinophils/100 WBC (Bld) 3 % Normal 0-5 [facility] Comment on above: Performed By: #### A 1C, CBCAD #### [place] [address] Ph. [phone] Erythrocyte distribution width (RBC) [Ratio] 13.7 % Normal 11.5-14.5 [facility] Comment on above: Performed By: #### A 1C, CBCAD #### [place] [address] Ph. [phone] Hematocrit (Bld) [Volume fraction] 39.9 % Normal 36.0-47.0 [facility] Comment on above: Performed By: #### A 1C, CBCAD #### [place] [address] Ph. [phone] Hemoglobin (Bld) [Mass/Vol] 13.9 g/dL Normal 12.0-16.0 [facility] Comment on above: Performed By: #### A 1C, CBCAD #### [place] [address] Ph. [phone] Lymphocytes (Bld) [#/Vol] 1.5 10*3/uL Normal 1.0-4.0 [facility] Comment on above: Performed By: #### A 1C, CBCAD #### [place] [address] Ph. [phone] Lymphocytes/100 WBC (Bld) 34 % Normal 20-40 [facility] Comment on above: Performed By: #### A 1C, CBCAD #### [place] [address] Ph. [phone] MCH (RBC) [Entitic mass] 30.2 pg Normal 27.0-35.0 [facility] Comment on above: Performed By: #### A 1C, CBCAD #### [place] [address] Ph. [phone] MCHC (RBC) [Mass/Vol] 34.8 g/dL Normal 32.0-36.0 [facility] Comment on above: Performed By: #### A 1C, CBCAD #### [place] [address] Ph. [phone] MCV (RBC) [Entitic vol] 87 fL Normal 80-100 [facility] Comment on above: Performed By: #### A 1C, CBCAD #### [place] [id number] Ph. [phone] Monocytes (Bld) [#/Vol] 0.4 10*3/uL Normal 0.3-1.0 [facility] Comment on above: Performed By: #### A 1C, CBCAD #### [place] [id number] Ph. [phone] Monocytes/100 WBC (Bld) 8 % Normal 1-15 [facility] Comment on above: Performed By: #### A 1C, CBCAD #### [place] [address] Ph. [phone] Neutrophils (Bld) [#/Vol] 2.4 10*3/uL Normal 1.8-7.7 [facility] Comment on above: Performed By: #### A 1C, CBCAD #### [place] [address] Ph. [phone] Neutrophils/100 WBC (Bld) 54 % Normal 50-70 [facility] Comment on above: Performed By: #### A 1C, CBCAD #### [place] [address] Ph. [phone] Platelet mean volume (Bld) [Entitic vol] 9.9 fL Normal 9.4-12.3 [facility] Comment on above: Performed By: #### A 1C, CBCAD #### [place] [address] Ph. [phone] Platelets (Bld) [#/Vol] 218 10*3/uL Normal 150-450 [facility] Comment on above: Performed By: #### A 1C, CBCAD #### [place] [id number] Ph. [phone] RBC (Bld) [#/Vol] 4.6 10*6/uL Normal 4.20-5.40 [facility] Comment on above: Performed By: #### A 1C, CBCAD #### [place] [id number] Ph. [phone] WBC (Bld) [#/Vol] 4.4 10*3/uL Normal 3.7-11.0 [facility] Comment on above: Performed By: #### A 1C, CBCAD #### [place] [address] Ph. [phone] Comprehensive Metabolic Pane rayne 01-21-2022 Albumin [Mass/Vol] 3.8 g/dL Normal 3.5-5.0 [facility] Comment on above: Performed By: #### O RD187, LDLD, LIPD, CMP #### [place] [id number] Ph. [phone] ALP [Catalytic activity/Vol] 122 U/L Normal 38-126 [facility] Comment on above: Performed By: #### O RD187, LDLD, LIPD, CMP #### [place] [id number] Ph. [phone] ALT [Catalytic activity/Vol] 42 U/L High 0-35 [facility] Comment on above: Performed By: #### O RD187, LDLD, LIPD, CMP #### [address] [address] Ph. [phone] AST [Catalytic activity/Vol] 35 U/L Normal 14-36 [facility] Comment on above: Performed By: #### O RD187, LDLD, LIPD, CMP #### [address] [address] Ph. [phone] Bilirubin [Mass/Vol] 0.7 mg/dL Normal 0.2-1.3 [facility] Comment on above: Performed By: #### O RD187, LDLD, LIPD, CMP #### [place] [id number] Ph. [phone] Calcium [Mass/Vol] 8.9 mg/dL Normal 8.4-10.2 [facility] Comment on above: Performed By: #### O RD187, LDLD, LIPD, CMP #### [place] [address] Ph. [phone] Chloride [Moles/Vol] 105 mmol/L Normal 98-107 [facility] Comment on above: Performed By: #### O RD187, LDLD, LIPD, CMP #### [place] [address] Ph. [phone] CO2 [Moles/Vol] 21 mmol/L Low 22-32 [facility] Comment on above: Performed By: #### O RD187, LDLD, LIPD, CMP #### [place] [address] Ph. [phone] Creatinine [Mass/Vol] 0.54 mg/dL Normal 0.52-1.04 [facility] Comment on above: Performed By: #### O RD187, LDLD, LIPD, CMP #### [place] [address] Ph. [phone] GFR/1.73 sq M.predicted among non-blacks MDRD (S/P/Bld) [Vol rate/Area] 116 mL/min/{1.73_m2} Normal >60 [facility] Comment on above: Result Comment: Stag e 1 Kidney damage (e.g., protein in the urine) with normal GFR >=90\\X0D0A\\Stage 2 Kidney damage with mild decrease in GFR 60-89\\X0D0A\\Stage 3a Moderate decrease in GFR 45-59\\X0D0A\\Stage 3b Moderate decrease in GFR 30-44\\X0D0A\\Stage 4 Severe reduction in GFR 15-29\\X0D0A\\Stage 5 Kidney failure <15 Performed By: #### O RD187, LDLD, LIPD, CMP #### [place] [id number] Ph. [phone] Glucose [Mass/Vol] 362 mg/dL High 65-100 [facility] Comment on above: Performed By: #### O RD187, LDLD, LIPD, CMP #### [place] [address] Ph. [phone] Potassium [Moles/Vol] 4.5 mmol/L Normal 3.6-5.0 [facility] Comment on above: Performed By: #### O RD187, LDLD, LIPD, CMP #### [place] [address] Ph. [phone] Protein [Mass/Vol] 7.0 g/dL Normal 6.3-8.2 [facility] Comment on above: Performed By: #### O RD187, LDLD, LIPD, CMP #### [place] [address] Ph. [phone] Sodium [Moles/Vol] 131 mmol/L Low 135-145 [facility] Comment on above: Performed By: #### O RD187, LDLD, LIPD, CMP #### [place] [id number] Ph. [phone] Urea nitrogen [Mass/Vol] 16 mg/dL Normal 7-17 [facility] Comment on above: Performed By: #### O RD187, LDLD, LIPD, CMP #### [place] [id number] Ph. [phone] Hemoglobin A1Con 01-21-2022 EAG 233 mg/dL Normal [facility] Comment on above: Result Comment: Devora mated Average Glucose is a caluculated value from Hemoglobin A1C and is litigation claim representative of the average blood glucose level in the last 2-3 month period. Performed By: #### A 1C, CBCAD #### [place] [address] Ph. [phone] HbA1c (Bld) [Mass fraction] 9.7 % High 4.0-6.0 [facility] Comment on above: Result Comment: Amer [place] Diabetes Association guidelines indicate that patients with HgbA1C in the range of 5.7-6.4% are at increased risk for development of diabetes, and intervention by lifestyle modification may be beneficial. HgbA1C greater than or equal to 6.5% is considered diagnostic of diabetes. Performed By: #### A 1C, CBCAD #### [place] [address] Ph. [phone] LDL-Directon 01-21-2022 LDLD <30 Low 60-129 [facility] Comment on above: Performed By: #### O RD187, LDLD, LIPD, CMP #### [place] [address] Ph. [phone] Lipid Panelon 01-21-2022 Cholesterol [Mass/Vol] 279 mg/dL High 100-200 [facility] Comment on above: Order Comment: Is Pa tient Fasting?/# of Hours->6 Result Comment: <200 mg/dL is recommended cholesterol level. Performed By: #### O RD187, LDLD, LIPD, CMP #### [place] [address] Ph. [phone] Cholesterol in HDL [Mass/Vol] 30 mg/dL Low >60 [facility] Comment on above: Order Comment: Is Pa tient Fasting?/# of Hours->6 Performed By: #### O RD187, LDLD, LIPD, CMP #### [place] [address] Ph. [phone] Cholesterol.total/Chol esterol in HDL [Mass ratio] 9 {ratio} High 1-5 [facility] Comment on above: Order Comment: Is Pa tient Fasting?/# of Hours->6 Performed By: #### O RD187, LDLD, LIPD, CMP #### [address] [address] Ph. [phone] Triglyceride [Mass/Vol] 2252 mg/dL High 10-150 [facility] Comment on above: Order Comment: Is Pa tient Fasting?/# of Hours->6 Result Comment: Due to Triglyceride >400, LDL calculation has been suppressed. Performed By: #### O RD187, LDLD, LIPD, CMP #### [address] [address] Ph. [phone] TSH Reflex FT4on 01-21-2022 TSH 2.860 mIU/mL Normal 0.470-4.680 [facility] Comment on above: Performed By: #### O RD187, LDLD, LIPD, CMP #### [address] [address] Ph. [phone] Basic Metabolic Profon 02-18 Glucose [Mass/Vol] 492 mg/dL Critically high 70-99 [facility] Comment on above: Performed By: #### C DP, HCG, MG, BMP, TROPI #### [facility] [address] [place] [address] Seasonal Sales Associate: Tom Phoenix DO (cont.) Normal [facility] Comment on above: Result Comment: Aver age GFR for 40-49 years old: 99 mL/min/1.73sq m Chronic Kidney Disease: <60 mL/min/1.73sq m Kidney failure: <15 mL/min/1.73sq m eGFR calculated using average adult body mass. Additional eGFR calculator available at: http://www.[employer].com/multiple_crcl_2012.htm Performed By: #### C DP, HCG, MG, BMP, TROPI #### [facility] [address] [place] [address] Seasonal Sales Associate: Tom Phoenix DO Anion gap [Moles/Vol] 14 mmol/L Normal 9-17 [facility] Comment on above: Performed By: #### C DP, HCG, MG, BMP, TROPI #### [facility] [address] [place] [address] Seasonal Sales Associate: Tom Phoenix DO Calcium [Mass/Vol] 8.6 mg/dL Normal 8.6-10.4 [facility] Comment on above: Performed By: #### C DP, HCG, MG, BMP, TROPI #### [facility] [address] [place] [address] Seasonal Sales Associate: Tom Phoenix DO Chloride [Moles/Vol] 98 mmol/L Normal 98-107 [facility] Comment on above: Performed By: #### C DP, HCG, MG, BMP, TROPI #### [facility] [place] [address] Seasonal Sales Associate: Tom Phoenix DO CO2 [Moles/Vol] 23 mmol/L Normal 20-31 [facility] Comment on above: Performed By: #### C DP, HCG, MG, BMP, TROPI #### [facility] [place] [address] Seasonal Sales Associate: Tom Phoenix DO Creatinine [Mass/Vol] 0.63 mg/dL Normal 0.50-0.90 [facility] Comment on above: Performed By: #### C DP, HCG, MG, BMP, TROPI #### [facility] [address] [place] [address] Seasonal Sales Associate: Tom Phoenix DO GFR, Amer >60 Normal >60 [facility] Comment on above: Performed By: #### C DP, HCG, MG, BMP, TROPI #### [facility] [address] [place] [address] Seasonal Sales Associate: Tom Phoenix DO GFR,non Amer >60 Normal >60 [facility] Comment on above: Performed By: #### C DP, HCG, MG, BMP, TROPI #### [facility] [address] [place] [address] Seasonal Sales Associate: Tom Phoenix DO Potassium [Moles/Vol] 4.0 mmol/L Normal 3.7-5.3 [facility] Comment on above: Performed By: #### C DP, HCG, MG, BMP, TROPI #### [facility] [address] [place] [address] Seasonal Sales Associate: Tom Phoenix DO Sodium [Moles/Vol] 135 mmol/L Normal 135-144 [facility] Comment on above: Performed By: #### C DP, HCG, MG, BMP, TROPI #### [facility] [place] [address] Seasonal Sales Associate: Tom Phoenix DO Urea nitrogen [Mass/Vol] 10 mg/dL Normal 6-20 [facility] Comment on above: Performed By: #### C DP, HCG, MG, BMP, TROPI #### [facility] [address] [place] [address] Seasonal Sales Associate: Tom Phoenix DO BUN/CRE Ratio NOT REPORTED Normal 9-20 [facility] Comment on above: Performed By: #### C DP, HCG, MG, BMP, TROPI #### [facility] [address] [facility] [place] [address] Seasonal Sales Associate: Tom Phoenix DO Staging: NOT REPORTED Normal [facility] Comment on above: Performed By: #### C DP, HCG, MG, BMP, TROPI #### [facility] [address] [place] [address] Seasonal Sales Associate: Tom Phoenix DO Basic Metabolic ProfOrdered By: Clay Del Cid on 02-18-2021 Anion gap [Moles/Vol] 14 mmol/L 9 - 17 mmol/L [employer] Phone: Calcium [Mass/Vol] 8.6 mg/dL 8.6 - 10. 4 mg/dL [employer] Phone: Chloride [Moles/Vol] 98 mmol/L 98 - 10 7 mmol/L [employer] Phone: CO2 [Moles/Vol] 23 mmol/L 20 - 31 mmol/L [employer] Phone: Creatinine [Mass/Vol] 0.63 mg/dL 0.50 - 0.90 mg/dL [employer] Phone: GFR >60 >60 mL/min [employer] Phone: GFR Non- >60 >60 mL/min [employer] Phone: GFR/1.73 sq M.predicted MDRD (S/P/Bld) [Vol rate/Area] [employer] Phone: Comment on above: Average GFR for 40-4 9 years old: 99 mL/min/1.73sq m Chronic Kidney Disease: <60 mL/min/1.73sq m Kidney failure: <15 mL/min/1.73sq m eGFR calculated using average adult body mass. Additional eGFR calculator available at: http://www.[employer]/multiple_crcl_2012.htm GFR/1.73 sq M.predicted MDRD (S/P/Bld) [Vol rate/Area] NOT REPORTED [employer] Phone: Glucose [Mass/Vol] 492 mg/dL Critically high 70 - 9 9 mg/dL [employer] Phone: Interpretation and review of laboratory results Abnormal [employer] Phone: Potassium [Moles/Vol] 4.0 mmol/L 3.7 - 5.3 mmol/L [employer] Phone: Sodium [Moles/Vol] 135 mmol/L 135 - 144 mmol/L [facility] [employer] Work Phone: Urea nitrogen (BldV) [Mass/Vol] 10 mg/dL 6 - 20 mg/dL [facility] [employer] Work Phone: Urea nitrogen/Creatinine (Bld) [Mass ratio] NOT REPORTED [facility] [employer] Work Phone: [facility] [employer] Work Phone: CBC Auto DifferentialOrdered By: Clay Del Cid on 02-18-2021 [employer] Eos # 0.10 [facility] Work Phone: Absolute Immature Granulocyte NOT REPORTED [facility] [employer] Work Phone: Absolute Lymph # 1.70 [employer] [facility] Work Phone: Absolute [place] # 0.30 [facility] Work Phone: Basophils (Bld) [#/Vol] 0.10 10*3/uL [facility] Work Phone: Basophils/100 WBC (Bld) 1 % 0 - 2 % [facility] [employer] Phone: Differential Type NOT REPORTED [facility] [employer] Phone: Eosinophils/100 WBC (Bld) 2 % 0 - 4 % [facility] [employer] Phone: Hematocrit (Bld) [Volume fraction] 38.2 % 36 - 46 % [facility] [employer] Work Phone: Hemoglobin.gastrointes tinal spec 1 Ql (Stl) 13.1 g/dL 12.0 - 16.0 g/dL [facility] [employer] Phone: Immature Granulocytes NOT REPORTED 0 % [facility] [employer] Work Phone: Lymphocytes/100 WBC (Bld) 36 % 24 - 44 % [facility] Work Phone: MCH (RBC) [Entitic mass] 30.0 pg 26 - 34 pg [employer] Work Phone: MCHC (RBC) [Mass/Vol] 34.4 g/dL 31 - 37 g/dL [facility] [employer] Work Phone: MCV (RBC) [Entitic vol] 87.2 fL 80 - 100 fL [facility] Phone: Monocytes/100 WBC (Bld) 7 % 1 - 7 % [facility] Work Phone: NRBC Automated NOT REPORTED per 100 WBC [employer] Work Phone: Platelet distribution width (Bld) [Ratio] 14.9 % 11.5 - 14.9 % [employer] Phone: Platelet Estimate NOT REPORTED [facility] Phone: Platelet mean volume (Bld) [Entitic vol] 8.2 fL 6.0 - 12.0 fL [facility] Phone: Platelets (Bld) [#/Vol] 234 10*3/uL [employer] Phone: RBC (Bld) [#/Vol] 4.38 10*6/uL 4.0 - 5.2 m/uL [facility] Phone: RBC (Bld) [#/Vol] NOT REPORTED [facility] Phone: Segmented neutrophils/100 WBC (Bld) 54 % 36 - 66 % [facility] Work Phone: Segs [employer] 2[employer] Work Phone: WBC (Bld) [#/Vol] 4.6 10*3/uL [employer] Phone: WBC (Bld) [#/Vol] NOT REPORTED [facility] Phone: [employer] Phone: CBC with Diffon 02-18-2021 Abs. Basophil 0.10 k/uL Normal 0.0-0.2 [facility] Comment on above: Performed By: #### C DP, HCG, MG, BMP, TROPI #### [facility] [address] [facility] [place] [address] Seasonal Sales Associate: Tom Phoenix DO Abs.Neutrophil (Seg) 2.50 k/uL Normal 1.3-9.1 [facility] Comment on above: Performed By: #### C DP, HCG, MG, BMP, TROPI #### [facility] [address] [facility] [place] [address] Seasonal Sales Associate: Tom Phoenix DO Basophils/100 WBC (Bld) 1 % Normal 0-2 [facility] Comment on above: Performed By: #### C DP, HCG, MG, BMP, TROPI #### [facility] [place] [address] Seasonal Sales Associate: Tom Phoenix DO Eosinophils (Bld) [#/Vol] 0.10 10*3/uL Normal 0.0-0.4 [facility] Comment on above: Performed By: #### C DP, HCG, MG, BMP, TROPI #### [facility] [place] [address] Seasonal Sales Associate: Tom Phoenix DO Eosinophils/100 WBC (Bld) 2 % Normal 0-4 [facility] Comment on above: Performed By: #### C DP, HCG, MG, BMP, TROPI #### [facility] [place] [address] Seasonal Sales Associate: Tom Phoenix DO Erythrocyte distribution width (RBC) [Ratio] 14.9 % Normal 11.5-14.9 [facility] Comment on above: Performed By: #### C DP, HCG, MG, BMP, TROPI #### [facility] [place] [address] Seasonal Sales Associate: Tom Phoenix DO Hematocrit (Bld) [Volume fraction] 38.2 % Normal 36-46 [facility] Comment on above: Performed By: #### C DP, HCG, MG, BMP, TROPI #### [facility] [address] [place] [address] Seasonal Sales Associate: Tom Phoenix DO Hemoglobin (Bld) [Mass/Vol] 13.1 g/dL Normal 12.0-16.0 [facility] Comment on above: Performed By: #### C DP, HCG, MG, BMP, TROPI #### [facility] [address] [place], [place] [address] [place] [address] Seasonal Sales Associate: Tom Phoenix DO Lymphocytes (Bld) [#/Vol] 1.70 10*3/uL Normal 1.0-4.8 [facility] Comment on above: Performed By: #### C DP, HCG, MG, BMP, TROPI #### [facility] [place] [address] Seasonal Sales Associate: Tom Phoenix DO Lymphocytes/100 WBC (Bld) 36 % Normal 24-44 [facility] Comment on above: Performed By: #### C DP, HCG, MG, BMP, TROPI #### [facility] [address] [place] [address] Seasonal Sales Associate: Tom Phoenix DO MCH (RBC) [Entitic mass] 30.0 pg Normal 26-34 [facility] [facility] Comment on above: Performed By: #### C DP, HCG, MG, BMP, TROPI #### [facility] [place] [address] Seasonal Sales Associate: Tom Phoenix DO MCHC (RBC) [Mass/Vol] 34.4 g/dL Normal 31-37 [facility] Comment on above: Performed By: #### C DP, HCG, MG, BMP, TROPI #### [facility] [address] [facility] [place] [address] Seasonal Sales Associate: Tom Phoenix DO MCV (RBC) [Entitic vol] 87.2 fL Normal 80-100 [facility] Comment on above: Performed By: #### C DP, HCG, MG, BMP, TROPI #### [facility] [place] [address] Seasonal Sales Associate: Tom Phoenix DO Monocytes (Bld) [#/Vol] 0.30 10*3/uL Normal 0.1-1.3 [facility] Comment on above: Performed By: #### C DP, HCG, MG, BMP, TROPI #### [facility] [address] [place] [address] Seasonal Sales Associate: Tom Phoenix DO Monocytes/100 WBC (Bld) 7 % Normal 1-7 [facility] Comment on above: Performed By: #### C DP, HCG, MG, BMP, TROPI #### [facility] [address] [place] [address] Seasonal Sales Associate: Tom Phoenix DO Neutrophil (Seg) 54 % Normal 36-66 [facility] Comment on above: Performed By: #### C DP, HCG, MG, BMP, TROPI #### [facility] [address] [place] [phone] Seasonal Sales Associate: Tom Phoenix DO Platelet mean volume (Bld) [Entitic vol] 8.2 fL Normal 6.0-12.0 [facility] Comment on above: Performed By: #### C DP, HCG, MG, BMP, TROPI #### [facility] [address] [place] [address] Seasonal Sales Associate: Tom Phoenix DO Platelets (Bld) [#/Vol] 234 10*3/uL Normal 150-450 [facility] Comment on above: Performed By: #### C DP, HCG, MG, BMP, TROPI #### [facility] [address] [place] [address] Seasonal Sales Associate: Tom Phoenix DO RBC (Bld) [#/Vol] 4.38 10*6/uL Normal 4.0-5.2 [facility] Comment on above: Performed By: #### C DP, HCG, MG, BMP, TROPI #### [facility] [place] [address] Seasonal Sales Associate: Tom Phoenix DO WBC (Bld) [#/Vol] 4.6 10*3/uL Normal 3.5-11.0 [facility] Comment on above: Performed By: #### C DP, HCG, MG, BMP, TROPI #### [facility] [address] [place] [address] Seasonal Sales Associate: Tom Phoenix DO Abs.Imm.Granulocyte NOT REPORTED Normal 0.00-0.30 [facility] Comment on above: Performed By: #### C DP, HCG, MG, BMP, TROPI #### [facility] [address] [place] [address] Seasonal Sales Associate: Tom Phoenix DO Auto Diff Performed NOT REPORTED Normal [facility] Comment on above: Performed By: #### C DP, HCG, MG, BMP, TROPI #### [facility] [address] [place] [address] Seasonal Sales Associate: Tom Phoenix DO Immature Granulocyte NOT REPORTED Normal 0 [facility] Comment on above: Performed By: #### C DP, HCG, MG, BMP, TROPI #### [facility] [address] [place] [address] Seasonal Sales Associate: Tom Phoenix DO NRBC Automated NOT REPORTED Normal [facility] Comment on above: Performed By: #### C DP, HCG, MG, BMP, TROPI #### [facility] [address] [facility] [place] [address] Seasonal Sales Associate: Tom Phoenix DO Platelet Estimate NOT REPORTED Normal [facility] Comment on above: Performed By: #### C DP, HCG, MG, BMP, TROPI #### [facility] [address] [facility] [place] [address] Seasonal Sales Associate: Tom Phoenix DO RBC morphology finding Nom (Bld) NOT REPORTED Normal [facility] Comment on above: Performed By: #### C DP, HCG, MG, BMP, TROPI #### [facility] [address] [facility] [place] [address] Seasonal Sales Associate: Tom Phoenix DO WBC Morphology NOT REPORTED Normal [facility] Comment on above: Performed By: #### C DP, HCG, MG, BMP, TROPI #### [facility] [address] [facility] [place] [address] Seasonal Sales Associate: Tom Phoenix DO HCG Qualitative, SerumOrdere d By: Clay Del Cid on 02-18-2021 hCG Qual Negative NEGATIVE [employer] Phone: Comment on above: Specimens with hCG l evels near the threshold of the test (25 mIU/mL) may give a negative or indeterminate result. In such cases, another test should be performed with a new specimen in 48-72 hours. If early is suspected clinically in this setting, correlation with quantitative serum b-hCG level is suggested. [employer] Phone: HCG Screen, Bloodon 02-19-20 HCG Screen, Blood Negative Normal NEG [facility] Comment on above: Result Comment: Spec imens with hCG levels near the threshold of the test (25 mIU/mL) may give a negative or indeterminate result. In such cases, another test should be performed with a new specimen in 48-72 hours. If early is suspected clinically in this setting, correlation with quantitative serum b-hCG level is suggested. Performed By: #### C DP, HCG, MG, BMP, TROPI #### [facility] [address] [facility] [place] [address] Seasonal Sales Associate: Tom Phoenix DO Magnesiumon 02-18-2021 Magnesium [Mass/Vol] 1.7 mg/dL Normal 1.6-2.6 [facility] Comment on above: Performed By: #### C DP, HCG, MG, BMP, TROPI #### [facility] [address] [facility] [place] [address] Seasonal Sales Associate: Tom Phoenix DO MagnesiumOrdered By: Clay oreilly on 02-18-2021 Magnesium [Mass/Vol] 1.7 mg/dL 1.6 - 2 .6 mg/dL [facility] Phone: [facility] Phone: POC Glucose FingerstickOrder ed By: Hesham Jacob on 02-18-2021 Glucose [Mass/Vol] 375 mg/dL High 65 - 105 mg/dL [facility] Phone: Interpretation and review of laboratory results Abnormal [employer] Phone: [facility] Phone: Troponinon 02-18-2021 Troponin, High Sens <6 Normal 0-14 [facility] Comment on above: Result Comment: High Sensitivity Troponin values cannot be compared with other Troponin methodologies. Patients with high levels of Biotin oral intake (i.e >5mg/day) may have falsely decreased Troponin levels. Samples collected within 8 hours of biotin intake may require additional information for diagnosis. Performed By: #### C DP, HCG, MG, BMP, TROPI #### [facility] [address] [facility] [place] [address] Seasonal Sales Associate: Tom Phoenix DO Troponin Interp. NOT REPORTED Normal [facility] Comment on above: Performed By: #### C DP, HCG, MG, BMP, TROPI #### [facility] [address] [facility] [place] [address] Seasonal Sales Associate: Tom Phoenix DO Troponin T NOT REPORTED Normal <0.03 [facility] Comment on above: Performed By: #### C DP, HCG, MG, BMP, TROPI #### [facility] [address] [facility] [place] [address] Seasonal Sales Associate: Tom Phoenix DO TroponinOrdered By: Clay kauffman on 02-18-2021 Troponin Interp NOT REPORTED [facility] Work Phone: Troponin T NOT REPORTED <0.03 ng/mL [facility] Work Phone: Troponin, High Sensitivity <6 0 - 14 ng/L [facility] Work Phone: Comment on above: High Sensitivity Troponin values cannot be compared with other Troponin methodologies. Patients with high levels of Biotin oral intake (i.e >5mg/day) may have falsely decreased Troponin levels. Samples collected within 8 hours of biotin intake may require additional information for diagnosis. [employer] Phone: XR CHEST (2 VW)on 02-18-2021 XR CHEST (2 VW) EXAMINATION: TWO XRAY VIEWS OF THE CHEST 02/18/2021 12:21 am COMPARISON: 11/27/2015 HISTORY: ORDERING SYSTEM PROVIDED HISTORY: Chest pain TECHNOLOGIST PROVIDED HISTORY: Chest pain Reason for Exam: chest pain Acuity: Acute Type of Exam: Initial FINDINGS: Heart size and configuration are normal. Hilar and mediastinal structures are unremarkable. The lungs are clear. No pneumothorax or pleural fluid. No acute bone finding. IMPRESSION: No acute cardiopulmonary disease. Interpreted by: Mehdi Espinosa MD Signed by: Mehdi Espinosa MD 02/18/21 Final result Normal [facility] XR CHEST (2 VW)Ordered By: Sathish Del Cid on 02-18-2021 No acute cardiopulmonary disease. [employer] Phone: EXAMINATION: TWO XRA Y VIEWS OF THE CHEST 02/18/2021 12:21 am COMPARISON: 11/27/2015 HISTORY: ORDERING SYSTEM PROVIDED HISTORY: Chest pain TECHNOLOGIST PROVIDED HISTORY: Chest pain Reason for Exam: chest pain Acuity: Acute Type of Exam: Initial FINDINGS: Heart size and configuration are normal. Hilar and mediastinal structures are unremarkable. The lungs are clear. No pneumothorax or pleural fluid. No acute bone finding. [employer] Phone: Natan, Mhpn Incoming Radiant Results From [employer] - 02/18/2021 12:46 AM EDT EXAMINATION: TWO XRAY VIEWS OF THE CHEST 02/18/2021 12:21 am COMPARISON: 11/27/2015 HISTORY: ORDERING SYSTEM PROVIDED HISTORY: Chest pain TECHNOLOGIST PROVIDED HISTORY: Chest pain Reason for Exam: chest pain Acuity: Acute Type of Exam: Initial FINDINGS: Heart size and configuration are normal. Hilar and mediastinal structures are unremarkable. The lungs are clear. No pneumothorax or pleural fluid. No acute bone finding. IMPRESSION: No acute cardiopulmonary disease. [employer] Phone: [employer] Phone: Vital Signs Date Time Vital Sign Value Performing Clinician Facility 06-06-2025 08:59-0400 Body height 154.94 cm Zebulun Beam [employer] Work Phone: [facility] 06-06-2025 08:59-0400 Body weight 98.88 kg Zebulun Beam [employer] HE[employer] Work Phone: [facility] 03-17-2024 11:49-0400 Body height 154.9 cm [facility] [employer] Work Phone: [facility] 03-17-2024 11:49-0400 Body mass index (BMI) [Ratio] 42.32 kg/m2 [facility] [employer] Work Phone: [facility] 03-17-2024 11:49-0400 Body temperature 98.71 [degF] Yfn Gusman DO Work Phone: [employer] 03-17-2024 11:49-0400 Body weight 101.61 kg Yfn Gusman DO Work Phone: [employer] 03-17-2024 11:49-0400 Diastolic blood pressure 66 mm[Hg] Yfn Gusman DO Work Phone: [facility] 03-17-2024 11:49-0400 Heart rate 84 /min Yfn Gusman DO Work Phone: [employer] 03-17-2024 11:49-0400 Respiratory rate 18 /min Yfn Gusman DO Work Phone: [employer] 03-17-2024 11:49-0400 SaO2% (BldA) [Mass fraction] 96 % Yfn Gusman DO Work Phone: [employer] 03-17-2024 11:49-0400 Systolic blood pressure 119 mm[Hg] Yfn Gusman DO Work Phone: [employer] 03-01-2024 22:49-0400 Body temperature 98.01 [degF] Stefanie Lavell DO Work Phone: [employer] 03-01-2024 22:49-0400 Diastolic blood pressure 70 mm[Hg] Stefanie Mitchell DO Work Phone: [facility] 03-01-2024 22:49-0400 Heart rate 75 /min Stefanie Mitchell DO Work Phone: [facility] 03-01-2024 22:49-0400 Respiratory rate 16 /min Stefanie Mitchell DO Work Phone: [employer] 03-01-2024 22:49-0400 SaO2% (BldA) [Mass fraction] 100 % Stefanie Mitchell DO Work Phone: [employer] 03-01-2024 22:49-0400 Systolic blood pressure 112 mm[Hg] Stefanie Mitchell DO Work Phone: [employer] 03-01-2024 22:42-0400 Body height 165.1 cm Stefanie Mitchell DO Work Phone: [facility] 03-01-2024 22:42-0400 Body mass index (BMI) [Ratio] 37.42 kg/m2 Stefanie Mitchell DO Work Phone: [facility] 03-01-2024 22:42-0400 Body weight 102 kg Stefanie Mitchell DO Work Phone: [facility] 02-09-2024 07:18-0400 Body temperature 97.9 [degF] Melvina Andre MD Work Phone: [facility] 02-09-2024 07:18-0400 Diastolic blood pressure 61 mm[Hg] Melvina Ander MD Work Phone: [facility] 02-09-2024 07:18-0400 Heart rate 86 /min Melvina Andre MD Work Phone: [facility] 02-09-2024 07:18-0400 Respiratory rate 20 /min Melvina Andre MD Work Phone: [facility] 02-09-2024 07:18-0400 SaO2% (BldA) [Mass fraction] 96 % Melvina Andre MD Work Phone: [facility] 02-09-2024 07:18-0400 Systolic blood pressure 117 mm[Hg] Melvina Andre MD Work Phone: [facility] 02-09-2024 07:15-0400 Body height 154.9 cm Melvina Andre MD Work Phone: [facility] 02-08-2024 19:04-0400 Body height 154.9 cm Mami Amaro MD Work Phone: [facility] 02-08-2024 19:04-0400 Diastolic blood pressure 77 mm[Hg] Mami Amaro MD Work Phone: [facility] 02-08-2024 19:04-0400 Systolic blood pressure 125 mm[Hg] Mami Amaro MD Work Phone: [facility] 02-08-2024 19:02-0400 Body temperature 98.01 [degF] Mami Amaro MD Work Phone: [facility] 02-08-2024 19:02-0400 Heart rate 86 /min Mami Amaro MD Work Phone: [facility] 02-08-2024 19:02-0400 Respiratory rate 12 /min Mami Amaro MD Work Phone: [facility] 02-08-2024 19:02-0400 SaO2% (BldA) [Mass fraction] 98 % Mami Amaro MD Work Phone: [facility] 01-07-2024 10:53-0400 Body height 165.1 cm Alfred Flores MD Work Phone: [employer] 01-07-2024 10:53-0400 Body mass index (BMI) [Ratio] 37.42 kg/m2 Alfred Flores MD Work Phone: [employer] 01-07-2024 10:53-0400 Body temperature 98.2 [degF] Alfred Flores MD Work Phone: [employer] 01-07-2024 10:53-0400 Body weight 102 kg Alfred Flores MD Work Phone: [employer] 01-07-2024 10:53-0400 Diastolic blood pressure 67 mm[Hg] Alfred Flores MD Work Phone: [employer] 01-07-2024 10:53-0400 Heart rate 84 /min Alfred Flores MD Work Phone: [employer] 01-07-2024 10:53-0400 Respiratory rate 20 /min Alfred Flores MD Work Phone: [employer] 01-07-2024 10:53-0400 SaO2% (BldA) [Mass fraction] 97 % Alfred Flores MD Work Phone: [employer] 01-07-2024 10:53-0400 Systolic blood pressure 148 mm[Hg] Alfred Flores MD Work Phone: [employer] 09-29-2023 22:00-0500 Heart rate 91 /min Rita Nielsen MD Work Phone: [employer] 09-29-2023 22:00-0500 Respiratory rate 14 /min Rita Nielsen MD Work Phone: [employer] 09-29-2023 22:00-0500 SaO2% (BldA) [Mass fraction] 97 % Rita Nielsen MD Work Phone: [employer] 09-29-2023 19:51-0500 Body height 154.9 cm Rita Nielsen MD Work Phone: [employer] 09-29-2023 19:51-0500 Body mass index (BMI) [Ratio] 42.51 kg/m2 Rita Nielsen MD Work Phone: [employer] 09-29-2023 19:51-0500 Body temperature 98.01 [degF] Rita Nielsen MD Work Phone: [employer] 09-29-2023 19:51-0500 Body weight 102.06 kg Rita Nielsen MD Work Phone: [employer] 09-29-2023 19:51-0500 Diastolic blood pressure 82 mm[Hg] Rita Nielsen MD Work Phone: [employer] 09-29-2023 19:51-0500 Systolic blood pressure 137 mm[Hg] Rita Nielsen MD Work Phone: [employer] 05-18-2023 06:05-0400 Diastolic blood pressure 62 mm[Hg] [facility] 05-18-2023 06:05-0400 Heart rate 87 /min [facility] 05-18-2023 06:05-0400 Respiratory rate 18 /min [facility] 05-18-2023 06:05-0400 SaO2% (BldA) [Mass fraction] 100 % [facility] 05-18-2023 06:05-0400 Systolic blood pressure 114 mm[Hg] [facility] 05-17-2023 16:27-0400 Body height 154.94 cm [facility] 05-17-2023 16:27-0400 Body mass index (BMI) [Ratio] 42.3 kg/m2 [facility] 05-17-2023 16:27-0400 Body temperature 97 [degF] [facility] 05-17-2023 16:27-0400 Body weight 101.6 kg [facility] 04-30-2023 00:39-0400 Diastolic blood pressure 84 mm[Hg] [facility] 04-30-2023 00:39-0400 Heart rate 78 /min [facility] 04-30-2023 00:39-0400 Respiratory rate 16 /min [facility] 04-30-2023 00:39-0400 SaO2% (BldA) [Mass fraction] 97 % [facility] 04-30-2023 00:39-0400 Systolic blood pressure 151 mm[Hg] [facility] 04-29-2023 21:59-0400 Body mass index (BMI) [Ratio] 43.3 kg/m2 [facility] 04-29-2023 21:59-0400 Body temperature 96.9 [degF] [facility] 04-29-2023 21:59-0400 Body weight 104 kg [facility] 03-25-2023 13:13-0400 Body mass index (BMI) [Ratio] 44.4 kg/m2 [facility] 03-25-2023 13:13-0400 Body weight 106.59 kg [facility] 03-25-2023 13:13-0400 Diastolic blood pressure 78 mm[Hg] [facility] 03-25-2023 13:13-0400 Heart rate 78 /min [facility] 03-25-2023 13:13-0400 Respiratory rate 18 /min [facility] 03-25-2023 13:13-0400 SaO2% (BldA) [Mass fraction] 99 % [facility] 03-25-2023 13:13-0400 Systolic blood pressure 134 mm[Hg] [facility] 03-25-2023 09:45-0400 Body height 154.94 cm [facility] 03-25-2023 09:45-0400 Body temperature 96.8 [degF] [facility] 02-18-2021 03:22-0400 Heart rate 82 /min Hesham Jacob MD Work Phone: [employer] Work Phone: 02-18-2021 03:22-0400 Respiratory rate 16 /min Hesham Jacob MD Work Phone: [employer] Work Phone: 02-18-2021 03:22-0400 SaO2% (BldA) [Mass fraction] 98 % Hesham Jacob MD Work Phone: [employer] Work Phone: 02-17-2021 22:17-0400 Body height 154.9 cm Hesham Jacob MD Work Phone: [employer] Work Phone: 02-17-2021 22:17-0400 Body mass index (BMI) [Ratio] 45.35 kg/m2 Hesham Jacob MD Work Phone: [employer] Work Phone: 02-17-2021 22:17-0400 Body temperature 98.1 [degF] Hesham Jacob MD Work Phone: [employer] Work Phone: 02-17-2021 22:17-0400 Body weight 108.86 kg Hesham Jacob MD Work Phone: [employer] Work Phone: 02-17-2021 22:17-0400 Diastolic blood pressure 91 mm[Hg] Hesham Jacob MD Work Phone: [employer] Work Phone: 02-17-2021 22:17-0400 Systolic blood pressure 156 mm[Hg] Hesham Jacob MD Work Phone: [employer] Work Phone: Encounters Encounter Date Encounter Type Care Provider Facility Start: 08-07-2025 ambulatory [place] Beam Facility:[facility] Start: 06-06-2025 End: 06-26-2025 Discharged Recurring [place] Beam -Nutritional Servic es Work Phone: Start: 06-06-2025 End: 06-26-2025 ambulatory Zebulun Beam [employer]CTION HEAT [employer]ATER[employer]C Work Phone: -Nutritional Services Start: 04-16-2025 End: 04-16-2025 ambulatory Zebulun Beam [employer]CTION HEAT [employer]C Work Phone: -[facility] Start: 04-16-2025 End: 04-16-2025 Patient encounter procedure Zebulun Beam IN[employer]CTION HEAT TRE[employer]-C -[facility] Start: 04-16-2025 End: 04-16-2025 ambulatory Zebulun Beam VSC Facility:[facility] Start: 11-07-2024 End: 11-07-2024 ambulatory Zebulun Beam VSC Facility:[facility] Start: 09-05-2024 End: 09-05-2024 Emergency department patient visit ROLAN COLEMAN [facility] Start: 03-18-2024 End: 03-18-2024 Emergency department patient visit TEOFILO PALMA [facility] Start: 03-17-2024 End: 03-17-2024 Emergency department patient visit Yfn Gusman DO Work Phone: [facility] Comment on above: Hyperglycemia (Prima ry Dx); Acute pain of left shoulder Start: 03-17-2024 End: 03-17-2024 Evaluation and management of inpatient Yfn Gusman DO Work Phone: [facility] Start: 03-07-2024 End: 03-07-2024 Emergency department patient visit PHYSICIAN CAROLE [facility] Start: 03-01-2024 End: 03-01-2024 Emergency department patient visit Stefanie Mitchell DO Work Phone: [facility] Room Comment on above: Myalgia (Primary Dx) Start: 03-01-2024 End: 03-01-2024 Evaluation and management of inpatient Stefanie Mitchell DO Work Phone: [facility] Start: 02-21-2024 End: 02-21-2024 Emergency department patient visit LUX BUTTERFIELD [facility] Start: 02-19-2024 End: 02-19-2024 ambulatory BRENNEN LIN [facility] Start: 02-09-2024 End: 02-09-2024 Emergency department patient visit SELF SELF Facility:[facility] Start: 02-09-2024 End: 02-09-2024 Emergency department patient visit Melvina Andre MD Work Phone: [facility] Emergency Department Start: 02-08-2024 End: 02-08-2024 Emergency department patient visit SELF SELF Facility:[facility] Start: 02-08-2024 End: 02-08-2024 Emergency department patient visit Mami Amaro MD Work Phone: [facility] Department Start: 01-07-2024 End: 01-07-2024 Emergency department patient visit Alfred Flores MD Work Phone: [facility] Comment on above: Anxiety (Primary Dx) ; Homelessness Start: 01-07-2024 End: 01-07-2024 Evaluation and management of inpatient Alfred Flores MD Work Phone: [facility] Start: 01-06-2024 End: 01-06-2024 Emergency department patient visit NO PCP PHYSICIAN [facility] Start: 09-29-2023 End: 09-29-2023 Emergency department patient visit Rita Bowers MD Work Phone: [facility] Comment on above: Acute bronchitis, un specified organism (Primary Dx) Start: 09-29-2023 End: 09-29-2023 Evaluation and management of inpatient Rita Nielsen MD Work Phone: [facility] Start: 05-28-2023 ambulatory [facility] Start: 05-17-2023 End: 05-18-2023 Emergency department patient visit [facility] Work Phone: Start: 04-29-2023 End: 04-30-2023 Emergency department patient visit [facility] Work Phone: Start: 03-25-2023 End: 03-25-2023 Emergency department patient visit [facility] Work Phone: Start: 02-02-2022 End: 02-03-2022 Emergency department [facility] Start: 01-26-2022 End: 01-26-2022 Emergency department [facility] Start: 01-21-2022 ambulatory [facility] Start: 04-26-2021 End: 04-27-2021 Emergency department patient visit [facility] Start: 02-18-2021 End: 02-18-2021 Emergency department patient visit [facility] Start: 02-17-2021 End: 02-18-2021 Emergency department patient visit Hesham Jacob MD Work Phone: [facility] ED Comment on above: Chest pain, unspecif ied type (Primary Dx); Hyperglycemia Procedures Date Procedure Procedure Detail Performing Clinician Start: 09-05-2024 Urinalysis ROLAN AGUSTIN Comment on above: Result Comment: URIN ALYSIS Performed By: #### [id number] #### [facility],[address] [place] [address] Start: 03-17-2024 End: 03-17-2024 Urine test visual color cmprsn meths Yfn Gusman DO Work Phone: Start: 03-17-2024 POCT GLUCOSE BLOOD Jordan Levy Gusman DO Work Phone: Start: 02-09-2024 Glucose measurement, blood Melvina Andre MD Work Phone: Start: 02-09-2024 Glucose measurement, blood Other Other OT Start: 09-29-2023 Radiologic exam ches t 2 views Rita Bowers MD Work Phone: Start: 09-29-2023 Sars-cov-2 detection by dna/rna Generic Provider Poct Work Phone: Start: 09-29-2023 Infectious agent dna /rna influenza 1st 2 types Generic Provider Poct Work Phone: Start: 05-17-2023 Viral antigen assay Start: 02-18-2021 Glucose blood reagen t strip Hesham Jacob MD Work Phone: Start: 02-18-2021 Radiologic exam ches t 2 views Clay Del Cid MD Work Phone: Start: 02-18-2021 Basic metabolic pane l calcium total Clay Del Cid MD Work Phone: Plan of Treatment Date Care Activity Detail Author Start: 09-30-2023 Adolescent depression screening assessment Depression Screening [facility] Start: 09-30-2023 Hepatitis C screening Hepatitis C Screening [facility] Start: 09-30-2023 HIV screening HIV Screening [facility] Start: 09-30-2023 Lipid panel Cholesterol Screening (Lipid Panel) [facility] Start: 09-30-2023 Social Influencers of Health Screening Social Influencers of Health Screening [facility] Start: 05-28-2023 COVID-19 Vaccine ( season) COVID-19 Vaccine () [facility] Start: 05-28-2023 Influenza vaccination Influenza Vaccine (#1) [facility] Start: 05-17-2023 Gas panel - Venous blood [facility] Start: 05-28-2021 Influenza vaccination Flu vaccine (Season Ended) [employer] Work Phone: Start: 2019 Lipid panel LIPID SCREENING [facility] Start: 2019 Screening for malignant neoplasm of breast MAMMOGRAM SCREENING DISCUSSION [facility] Start: 05-26-2019 Diabetic microalbuminuria test Diabetic microalbuminuria test [employer] Phone: Start: 05-26-2019 Hemoglobin A1c measurement A1C test (Diabetic or Prediabetic) [facility] Phone: Start: 05-26-2019 Lipid panel Lipid screen [facility] Phone: Start: 2000 Screening for malignant neoplasm of cervix [facility] Start: 1998 DTaP,Tdap,and Td Vaccines (1 - Tdap) DTaP,Tdap,and Td Vaccines (1 - Tdap) [facility] Start: 1998 DTaP/Tdap/Td vaccine (1 - Tdap) DTaP/Tdap/Td vaccine (1 - Tdap) [facility] Phone: Start: 1998 Hepatitis B vaccination HEP B VACCINE (1 of 3 - 19+ 3-dose series) [facility] Start: 1998 Hepatitis B Vaccines (1 of 3 - 19+ 3-dose series) Hepatitis B Vaccines (1 of 3 - 19+ 3-dose series) [facility] Start: 1998 Third diphtheria, tetanus and acellular pertussis (DTaP) vaccination TDAP (ADULT) [facility] Start: 1994 HIV screening [facility] Start: 1991 COVID-19 Vaccine (1) COVID-19 Vaccine (1) [employer] Phone: Start: 1989 Diabetic foot examination Diabetic foot exam [facility] Phone: Start: 1989 Diabetic retinal exam Diabetic retinal exam [facility] Phone: Start: 1985 Pneumococcal Vaccine: Pediatrics (0 to 5 Years) and At-Risk Patients (6 to 64 Years) (1 of 2 - PCV) Pneumococcal Vaccine: Pediatrics (0 to 5 Years) and At-Risk Patients (6 to 64 Years) (1 of 2 - PCV) [facility] Start: 1979 COVID-19 Vaccine (#1) COVID-19 Vaccine (#1) [facility] Start: 1979 Hepatitis B Vaccines (1 of 3 - 3-dose series) Hepatitis B Vaccines (1 of 3 - 3-dose series) [facility] Start: 1979 Hepatitis C screening [facility] Start: 1979 Screening for malignant neoplasm of breast Breast Cancer Screening [facility] Start: 1979 Tetanus vaccination TETANUS [facility] Patient Education [facility] Work Phone: Patient referral [facility] Work Phone: Payers Date Payer Category Payer Self-pay [address] [facility] [id number] 2024-Present [address] [place] [address] [id number] 2023 Medicaid [facility] MEDICAID ADVANTAGE [facility] MEDICAID ADVANTAGE [id number] 2023-Present [address] [place] [address] [id number] 2020 Unknown [id number] [id number] 1979 Unknown [id number] 2.16.840.1.010746.3.579.2.176 1979 Unknown [id number] 2.16.840.1.825899.3.579.2.176 1979 Unknown [id number] 2.16.840.1.532009.3.579.2.754 1979 Unknown [id number] 2.16.840.1.834368.3.579.2.754 1979 Unknown [id number] 2.16.840.1.537064.3.579.2.754 1979 Unknown [id number] 2.16.840.1.342303.3.579.2.594 1979 Unknown [id number] 2.16.840.1.442334.3.579.2.594 1979 Unknown [id number] 2.16.840.1.414562.3.579.2.1143 1979 Unknown [id number] 2.16.840.1.122787.3.579.2.1143 1979 Unknown [id number] 2.16.840.1.868526.3.579.2.1143 1979 Unknown [id number] 2.16.840.1.270444.3.579.2.1143 1979 Unknown [id number] 2.16.840.1.860472.3.579.2.1143 1979 Unknown [id number] 2.16.840.1.834655.3.579.2.1143 1979 Unknown [id number] 2.16.840.1.314318.3.579.2.902 1979 Unknown [id number] 2.16.840.1.003727.3.579.2.902 1979 Unknown [id number] 2.16.840.1.495730.3.579.2.902 1979 Unknown [id number] 2.16.840.1.379528.3.579.2.900 1979 Unknown [id number] 2.16.840.1.977395.3.579.2.651 Unknown [id number] 2.16.840.1.726896.3.579.2.462 Unknown [id number] 2.16.840.1.936528.3.579.2.462 Unknown [id number] 2.16.840.1.625332.3.579.2.462 Unknown [id number] 2.16.840.1.928546.3.579.2.462 Social History Date Type Detail Facility Start: 02-17-2021 End: 05-17-2023 Tobacco smoking status NHIS Unknown if ever smoked [facility] Start: 1980 Sex Assigned At Not on file [facility] Work Phone: Exposure to SARS-CoV-2 (event) Not sure [facility] Start: 1980 Sex Assigned At Female [facility] Start: 09-29-2023 End: 03-17-2024 Tobacco smoking status COIS Smokes tobacco daily [facility] History of tobacco use Cigarette Smoker [facility] [employer] Start: 09-29-2023 End: 03-17-2024 Tobacco use and exposure Smokeless tobacco non-user [facility] [employer] Start: 09-29-2023 End: 03-01-2024 Alcohol intake Lifetime non-drinker (finding) [facility] Start: 02-09-2024 Gender identity Not on file [facility] Start: 02-09-2024 End: 03-17-2024 Alcoholic beverage intake Ex-drinker (finding) [facility] Start: 02-09-2024 History of Social function [facility] Start: 03-17-2024 Alcohol Comment when able to p urchase it [facility] Start: 05-17-2023 Tobacco smoking status NHIS Current Heavy tobacco smoker [facility] NEGATED: Highlighted row [facility] Medical Equipment Procedure Code Equipment Code Equipment Origin al Text Equipment Identifier Dates Blood Sugar Diagnostic strip Start: 04-29-2023 Blood Sugar Diagnostic strip Start: 04-29-2023 Mental Status Date Assessment Result Facility 05-17-2023 Cognitive function Level Of Cons ciousness Awake;Alert;Appropriate;Follow s Commands [facility] Work Phone: 04-30-2023 Cognitive function Level Of Cons ciousness Awake;Alert;Appropriate [facility] Work Phone: 03-25-2023 Cognitive function Level Of Cons ciousness Awake;Alert;Appropriate;Follow s Commands [facility] Work Phone: Clinical Notes 05-18-2023 to 09-05-2024 Sandhya Bansal RN - 03/17/2024 11:56 AM Liborio Bansal RN - 03/17/2024 11:46 AM Liborio Bansal RN - 03/17/2024 11:33 AM Roberto Carlos Gusman DO - 03/17/2024 11:32 AM EDTDischarge Instructions Note Date & Type Note Facility 09-05-2024 Note Discharge Instructio ns Discharge Summary [address] [place] [address] [id number] 09/05/2024 Patient: SOPHIE MUNGUIA Sex: Female : 1980 Age: 44y Thank you for visiting [facility]. You have been evaluated today by Rolan Sanderson D.O. for the following condition(s): Principal Diagnosis Poorly controlled type 2 diabetes. homelessness out of her diabetic medication (she denies suidical or homicidal intent). INSTRUCTIONS (Home, take your Metformin, and proceed to a homeless alf of your choice, for which we have provided referrals. Be sure to follow up with Ms Harris, or the medical clinic of your choice.). Prescription Medications: Metformin 500 mg po bid for diabetes. Understanding of the discharge instructions verbalized by patient. Follow-up with: Meka Harris, GEORGE, HALL DIRECTOR, RAIL TRANSIT OPERATOR-C, [facility], Family Care, , [address] [place] [address]. Follow up in three days even if well. Summary of care provided to follow-up provider. (We have provided information for you for homeless assistance, and a prescription for metformin for your diabetes. You are to follow up with the [facility], or if you are in another town, then a medical clinic at that location.). 1 of 7 Discharge Instructions You have been given the following additional information: Diabetes: Overview Patient Signature Facility [employer] Date/Time General Instructions with ExitWriter [facility] [address] [place] [address] [id number] 09/05/2024 Patient: SOPHIE MUNGUIA Sex: Female : 1980 Age: 44y Thank you for visiting [facility]. You have been evaluated today by Rolan Sanderson D.O. for the following condition(s): Principal Diagnosis Poorly controlled type 2 diabetes. homelessness out of her diabetic medication (she denies suidical or homicidal intent). INSTRUCTIONS (Home, take your Metformin, and proceed to a homeless alf of your choice, for which we have provided referrals. Be sure to follow up with Ms Harris, or the medical clinic of your choice.). Prescription Medications: Metformin 500 mg po bid for diabetes. 2 of 7 Discharge Instructions Understanding of the discharge instructions verbalized by patient. Follow-up with: Meka Harris, GEORGE, HALL DIRECTOR, RAIL TRANSIT OPERATOR-C, [facility], Family Care, , [address] [place] [phone]. Follow up in three days even if well. Summary of care provided to follow-up provider. (We have provided information for you for homeless assistance, and a prescription for metformin for your diabetes. You are to follow up with the [facility], or if you are in another town, then a medical clinic at that location.). ADDITIONAL INFORMATION Diabetes: Overview Diabetes is a long-term health problem. It means your body doesn't make enough insulin. Or it may mean that your body can't use the insulin it makes. Insulin is a hormone in your body. It lets blood sugar (glucose) reach the cells in your body. All of your cells need glucose for fuel. When you have diabetes, the glucose in your blood builds up because it can't get into the cells. This buildup is called high blood sugar (hyperglycemia). Your blood sugar level depends on several things. It depends on what kind of food you eat and how much of it you eat. It also depends on how much exercise you get, and how much insulin you have in your body. Eating too much of the wrong kinds of food or not taking diabetes medicine on time can cause high blood sugar. Infections can cause high blood sugar even if you are taking medicines correctly. These things can also cause low blood sugar: Missing meals Not eating enough food Unplanned or heavy exercise Taking too much diabetes medicine Diabetes can cause serious problems over time if you don't get treated. These problems include: Heart disease Stroke 3 of 7 Discharge Instructions Kidney failure Blindness Nerve pain Loss of feeling in the legs and feet Tissue (gangrene) By keeping your blood sugar under control you can prevent or delay these problems. Normal blood sugar levels are 80mg/dL to 100 mg/dL before a meal. They are less than 180 mg/dL in the 1 to 2 hours after a meal. Home care Follow these guidelines when caring for yourself at home: Follow the diet your healthcare provider gives you. Take insulin or other diabetes medicine exactly as told to. Watch your blood sugar as you are told to. Keep a log of your results. This will help your provider change your medicines to keep your blood sugar under control. Try to reach your ideal weight. You may be a (more content not included)... [facility] 03-17-2024 History of Presen t illness Narrative Blood in urine, patient states she is currently on her menstrual cycle Sandhya Bansal RN 03/17/24 1157 Arrives with multiple complaints. Arrives with left shoulder pain, neck pain for multiple weeks. Starts to back and radiates down shoulder to hand. Denies trauma or injury. States it is the worst pain she's ever experienced. Is able to move arm with increased pain. Also concerned that she has been out of diabetic medications. has been out since December. Does not have established PCP. prior to December was staying at [facility] and they were overseeing her medications. Current blood glucose 340. is homeless and been sleeping on hard ground. Feels pain is related to not having medications. Denies current SI/HI Unable to triage patient at this time. Patient immediately walked to bathroom and states it is going to be a little while Images from the original note were not included. Sophie Munguia is a 43 y.o. female history of anxiety, bipolar disorder, depression, diabetes presenting to the emergency department for evaluation of multiple complaints. She reports to me that she has been homeless over the past 2 months and has not had any of her metformin. She is concerned that her sugars are high and on EMS arrival, her sugar was high in the 300s. She does have a sugary drink with her at the bedside. She also complains of pain in the left arm, mostly located in the trapezius and shoulder region. It is worse with movement. She states that she does sleep on the the hard ground outside and does often sleep on this side of the arm. No known injuries otherwise. No swelling, discoloration, weakness. She states that she recently moved to [place] and is trying to find new resources here. External records reviewed, patient seen at [facility] in January 2024 for suicidal ideation Review of Systems All other systems reviewed and are negative except as noted. Nursing triage notes were reviewed by me and I agree. Past Medical History: Diagnosis Date Anxiety Bipolar 1 disorder (CMS/HCC) Depression Diabetes mellitus ([facility]/HCC) Past Surgical History: Procedure Laterality Date SECTION TUBAL LIGATION No Known Allergies Social History Socioeconomic History Marital status: Single Spouse name: Not on file Number of children: Not on file Years of education: Not on file Highest education level: Not on file Occupational History Not on file Tobacco Use Smoking status: Every Day Current packs/day: 0.50 Types: Cigarettes Smokeless tobacco: Never Substance and Sexual Activity Alcohol use: Not Currently Comment: when able to purchase it Drug use: Yes Types: Marijuana/Cannabis Comment: last use recently Sexual activity: Defer Other Topics Concern Not on file Social History Narrative Not on file Home Medications metFORMIN (GLUCOPHAGE) 500 mg tablet Take 1 tablet (500 mg total) by mouth 2 (two) times a day with meals. Physical Exam Visit Vitals BP 119/66 Pulse 84 Temp 37.1 C (98.7 F) (Oral) Resp 18 Ht 1.549 m (61") Wt 102 kg (224 lb) LMP 03/17/2024 (Exact Date) SpO2 96% BMI 42.32 kg/m OB Status Having periods Smoking Status Every Day BSA 1.99 m General: Awake, alert, no acute distress HEENT: Atraumatic, normocephalic Neck: Supple, trachea midline, no midline tenderness. Thoracic tenderness and spasm on the left CV: Regular rate and rhythm, normal peripheral perfusion Lungs: Clear to auscultation bilaterally, nonlabored respirations Abdomen: Soft, nontender, nondistended Extremities: No deformity. Tenderness to the left shoulder with palpation. Slightly decreased range of motion with shoulder flexion secondary to pain. Otherwise good range of motion at the wrist, and elbow. Cardinal hand movements intact. Neuro: follows simple commands, moving all extremities spontaneously sensation intact throughout Skin: Warm, dry, pink Medical Decision Making Patient is a 43 y.o. female to the emergency department for evaluation of multiple complaints including shoulder pain and requesting a refill of her diabetic medications along with resources. Her vital signs are stable and she is neurovascularly intact. I considered imaging, however without trauma or red flag symptoms, do not feel this is indicated. Will treat with a lidocaine patch and ibuprofen. Patient's sugar is mildly elevated at 340. She is requesting something to eat, tells me that she has not eaten since yesterday though does have a sugary drink at the bedside with her. She was provided with food and water. Urinalysis does have blood present but patient is currently in her menstrual cycle. Otherwise negative for infection. I will refill her metformin as well as send her with prescriptions for ibuprofen, lidocaine patches, muscle relaxers. We discussed importance of primary care follow-up as an outpatient. Clinical Impressions as of 03/17/24 1221 Hyperglycemia Acute pain of left shoulder Labs Reviewed POCT GLUCOSE, BLOOD - Abnormal Result Value Glucose POCT 340 (*) POCT URINALYSIS MACROSCOPIC - Abnormal Color Urine POCT Yellow Clarity Urine POCT Cloudy (*) Glucose Urine POCT 500. (*) Ketones Urine POCT 15. (*) Leukocyte Esterase POCT Negative Nitrite POCT Negative pH Urine POCT 6.0 Blood Urine POCT Large (*) Protein Urine POCT Negative Specific [place] Urine POCT 1.025 Bilirubin Urine POCT Negative Urobilinogen POCT 0.2 POC , URINE DIAGNOSTIC - Normal HCG, Ur POC Negative POC hCG Int QC Pass? Yes No orders to display Medications ibuprofen (ADVIL,MOTRIN) tablet 600 mg (has no administration in time range) lidocaine 4 % patch 1 patch (has no administration in time range) Impression hyperGlycemia, left shoulder pain Yfn Gusman DO 03/17/24 1221 documented in this encounter [facility] 03-01-2024 Hospital Discharg e instructions Stefanie Mitchell DO - 03/01/2024 11:17 PM EDT If you have worsening symptoms you can always come back to the emergency department for repeat evaluation within 12 to 24 hours otherwise please follow-up with family practice physician otherwise please make sure to seek follow-up in the course of 1 to 2 weeks you can call to arrange to have a primary care physician at [phone] ANGEL The following attachments cannot be sent through Care Everywhere.Musculoskeletal Pain (Slovak)documented in this encounter [facility] 03-01-2024 History of Presen t illness Narrative Patient requesting new pants and socks, she states she "had an accident" in her pants. Pend vitals. Patient stable at this time. Esteban Humphrey RN 03/01/24 5467 Patient went to immediately on arrival to ER. Patient ambulates without difficulty. C/O neck/back muscle pain since last night. Patient states she was sleeping in the [place] Chief Complaint Patient presents with Back Pain Homeless History of Present Illness: Sophie Munguia is a 43 y.o. female who comes in for evaluation of allover myalgias, the patient states that she was sleeping outside in the [place], the patient states that she is homeless, patient states he was sleeping on the bare ground and woke up and has been having diffuse muscle aches throughout the day. Did not take any medication for this. Patient declines any significant medical history PAST MEDICAL HISTORY: There is no problem list on file for this patient. Past Medical History: Diagnosis Date Anxiety Bipolar 1 disorder ([facility]) Depression Diabetes mellitus ([facility]) History reviewed. No pertinent surgical history. No Known Allergies @EDHOMEMEDS@ No family history on file. SOCIAL HISTORY: Social History Tobacco Use Smoking status: Every Day Types: Cigarettes Smokeless tobacco: Never Substance Use Topics Alcohol use: Never Social History Social History Narrative Not on file REVIEW OF SYSTEMS: Otherwise as per HPI. PHYSICAL EXAM: ED Triage Vitals [03/01/242248] Temp Heart Rate Resp BP 36.7 C (98 F) 75 16 112/70 SpO2 Temp Source Heart Rate Source Patient Position 100 % Oral Monitor -- BP Location FiO2 (%) -- -- CONSTITUTIONAL: Well appearing, no apparent distress HENT: Mucous membranes moist. Oropharynx unremarkable. No nuchal rigidity CARDIOVASCULAR: Heart is regular, no murmurs. Good peripheral pulses. PULMONARY/CHEST: Lungs are clear to auscultation bilaterally. ABDOMINAL: Soft, nontender, nondistended. MUSCULOSKELETAL: No deformities. No pedal edema. No nuchal rigidity, the patient able to move all extremities without any difficulty and is able to ambulate to the bathroom multiple times NEURO: The patient is awake and alert. There are no focal neurologic deficits. SKIN: Warm, well perfused. No acute rashes. ED STUDIES: Labs Reviewed - No data to display No orders to display @EDRISRSLT@ @EDEKG@ ED COURSE: Vitals: 03/01/24224103/01/242248 BP: 112/70 Pulse: 75 Resp: 16 Temp: 36.7 C (98 F) TempSrc: Oral SpO2: 100% Weight: 102 kg (224 lb 13.9 oz) Height: 1.651 m (65") Medications lidocaine 4 % patch 1 patch (1 patch Topical Not Given 03/01/242321) acetaminophen (TYLENOL) tablet 1,000 mg (1,000 mg oral Given 03/01/242317) Clinical Impressions as of 03/01/242327 Myalgia Differential diagnosis includes muscle aches, muscle breakdown, cellulitis, infection Test considered not performed, blood work, x-ray Review of external record, visit from 01/06/2024, patient was seen for foot ulcer. Patient is evaluated, does not have any significant of any cellulitis once again is able to move all extremities without any difficulty, no significant tenderness upon palpation otherwise resting calmly well-appearing, the patient is otherwise hemodynamically stable no significant fever or chills no significant tachycardia no significant hypoxia. Patient is otherwise well-appearing does ask for multiple meals throughout her stay here in the emergency department and patient is discharged Care significantly affected by social determinants of health -: Yes: Problems related to primary support group DIAGNOSTIC IMPRESSION: 1. Myalgia DISPOSITION: Discharge ED Prescriptions Medication Sig Dispense Start Date End Date Auth. Provider acetaminophen (TYLENOL) 500 mg tablet Take 2 tablets (1,000 mg total) by mouth every 6 (six) hours if needed for mild pain for up to 5 days. 30 tablet 03/01/2024 03/06/2024 Stefanie Mitchell DO ibuprofen (ADVIL,MOTRIN) 600 mg tablet Take 1 tablet (600 mg total) by mouth every 6 (six) hours if needed for mild pain (for pain) for up to 5 days. 20 each 03/01/2024 03/06/2024 Stefanie Mitchell DO Medical Decision Making Stefanie Mitchell DO 03/01/24 5436 Stefanie Mitchell DO 03/02/24 5653 documented in this encounter [facility] 03-01-2024 Emergency department Note Bed: ED-10 Expected date: 03/01/24 Expected time: Means of arrival: Ambulance-ALS ([facility]) Comments: M10 [facility] 03-01-2024 Miscellaneous Notes Formattin g of this note might be different from the original. Bed: ED-10 Expected date: 03/01/24 Expected time: Means of arrival: Ambulance-ALS ([facility]) Comments: M10 documented in this encounter [facility] 02-09-2024 Physician Emergen cy department Note Signout: Sophie Munguia 43 y.o. female with a chief complaint of Suicidal received in sign-out. Vitals: 02/09/24 0715 02/09/24 0718 BP: 117/61 Pulse: 86 Resp: 20 Temp: 97.9 degrees F (36.6 degrees C) TempSrc: Oral SpO2: 96% Height: 1.549 m (5' 1") The patient presents with: SI Pending studies and plan include: Psych recs The expected disposition is: pending psych ED Course as of 02/09/241524February 09, 2024 152 Psych cleared for discharge Kiersten Dunlap MD Resident 02/09/24 152 [facility] 02-09-2024 Emergency department Note Signout: Sophie Munguia 43 y.o. female with a chief complaint of Suicidal received in sign-out. Vitals: 02/09/24 0715 02/09/24 0718 BP: 117/61 Pulse: 86 Resp: 20 Temp: 97.9 degrees F (36.6 degrees C) TempSrc: Oral SpO2: 96% Height: 1.549 m (5' 1") The patient presents with: SI Pending studies and plan include: Psych recs The expected disposition is: pending psych ED Course as of 02/09/241524February 09, 2024 1521 Psych cleared for discharge Kiersten Dunlap MD Resident 02/09/24 1526 Lunch provided to patient. EMERGENCY DEPARTMENT ENCOUNTER CHIEF COMPLAINT Suicidal HPI Sophie Munguia is a 43 y.o. female who presents to ED for SI. Patient states has been having suicidal ideation for a few weeks that's worsening. Patient denies plan or attempt. Patient states has many life stressors and is currently homeless and these things/stressors have caused her to become suicidal. Presented for worsening/more frequent thoughts. Reports maybe hearing voices telling her she is suicidal but patient is not sure. Reports hx of bipolar, depression, anxiety. Not currently on medications and is unsure how long she has been off medications. Denies prior suicidal attempts, current plan, hallucinations, hx of AH/VH, thoughts of harming others. Reports hx of tobacco use, marijuana use, and EtOH use - denies recent use "for weeks" because "I dont have money to buy anything". Identify Protective Factors (Protective factors may not counteract significant acute suicide risk factors) Internal: N/A External: N/A ED-SAFE PATIENT SECONDARY SCREENER (ESS-6) This tool should be administered by the provider after a patient endorses active ideation in the past 2 weeks (PSS Item 2= Yes) OR suicide attempt within the past 6 months (PSS Item 3= within past 6 months). Assess the following six indicators using all data available to you, including patient self-report, collateral information, medical record review, and current observations. Each "Yes" gets a score of 1 Positive on both safety screener (PSS-3) items - active ideation with a past attempt. Source: safety screening (PSS-3), documented on chart Active SI w/o past attempt Recurrent or current suicide plan* Suggested wording: Have you been thinking about how you might kill yourself? Denies plan Recurrent or current intent to act on ideation* Suggested wording: Have you had some intention of acting on your thoughts? no Lifetime psychiatric hospitalization Suggested wording: Have you ever been hospitalized for a mental health or substance abuse problem? no Pattern of excessive substance abuse Suggested Wording: Has drinking or drug abuse ever been a problem for you? Or positive on CAGE or other standardized substance use screener. no Current Irritability, agitation or aggression Source: clinical observation, collateral report. yes A. Assign a score of 1 for each "Yes" above and combine to obtain a total score. Score: 10/02 B. *Critical Item Review: - Item 2: Suicide plan present? no - Item 3: Intent present no - Current attempt? no The Purpose of this tool is initial stratification of clinical decision-making and risk mitigation. Not highly accurate prediction of suicide. Stratification instructions are below Stratification and Care Recommendations Check one box in each row based on the score in A and the critical item status in B: Negligible Mild Risk Moderate Risk High Risk A. Score Not applicable (negative on primary screener) __X_ 0-2 ____ 3-4 ___ 5-6 B. Critical Items ___ no current attempt _X_ no current attempt ___ no current attempt ___ current attempt ___ no suicide plan or intent _X_ no suicide plan or intent ___ suicide plan or intent ___ suicide plan and intent 2. Conclude risk level based on HIGHEST level category endorsed on any row: __X_mild ___moderate __high 3. Enact mitigation and recommend care appropriate to risk level: Mitigation and Recommended Care Mild Moderate High Constant observation not required Constant observation (1:several), make room safe recommended Constant observation (1:1) and make room safe or ligature resistant room recommend Behavioral health evaluation volutnary Behavioral health evaluation recommended Behavioral health evaluation recommended Suicide Prevention and Mental Health discharge resources Suicide Prevention and Mental Health discharge resources Suicide Prevention and Mental Health discharge resources Safety plan recommended at discharge Safety plan recommended at discharge Safety plan recommended at discharge PAST MEDICAL HISTORY No past medical history on file. SURGICAL HISTORY No past surgical history on file. CURRENT MEDICATIONS Current Outpatient Medications Medication Sig benzonatate 200 MG capsule Take 1 capsule by mouth three times a day if needed for cough for up to 7 days. Do not crush or chew. ALLERGIES No Known Allergies Family history reviewed and noncontributory other than: No family history on file. Social history reviewed and noncontributory other than: Social History Socioeconomic History Marital status: Single Spouse name: Not on file Number of children: Not on file Years of education: Not on file Highest education level: Not on file Occupational History Not on file Tobacco Use Smoking status: Every Day Types: Cigarettes Smokeless tobacco: Never Vaping Use Vaping status: Never Used Substance and Sexual Activity Alcohol use: Not Currently Drug use: Yes Types: Marijuana Sexual activity: Not on file Other Topics Concern Not on file Social History Narrative Not on file Social Determinants of Health Financial Resource Strain: Not on file Food Insecurity: Not on file Transportation Needs: Not on file Physical Activity: Not on file Stress: Not on file Social Connections: Not on file Intimate Partner Violence: Not on file Housing Stability: Not on file REVIEW OF SYSTEMS Review of Systems Constitutional: Negative for chills and fever. HENT: Negative. Respiratory: Negative. Cardiovascular: Negative. Gastrointestinal: Negative. Genitourinary: Negative. Musculoskeletal: Negative. Skin: Negative for itching and rash. Neurological: Negative. Psychiatric/Behavioral: Positive for depression, hallucinations and suicidal ideas. PHYSICAL EXAM VITAL SIGNS: BP 117/61 Pulse 86 Temp 97.9 F (36.6 C) (Oral) Resp 20 Ht 1.549 m (5' 1") SpO2 96% Smoking Status Every Day Physical Exam Constitutional: General: She is not in acute distress. Appearance: She is not toxic-appearing. HENT: Head: Normocephalic and atraumatic. Mouth/Throat: Mouth: Mucous membranes are moist. Cardiovascular: Pulses: Normal pulses. Heart sounds: Normal heart sounds. Pulmonary: Effort: Pulmonary effort is normal. Breath sounds: Normal breath sounds. Abdominal: General: Bowel sounds are normal. There is no distension. Palpations: Abdomen is soft. There is no mass. Tenderness: There is no abdominal tenderness. There is no guarding or rebound. Skin: General: Skin is warm and dry. Capillary Refill: Capillary refill takes less than 2 seconds. Neurological: Mental Status: She is oriented to person, place, and time. Mental status is at baseline. Psychiatric: Attention and Perception: Attention normal. Mood and Affect: Affect is angry. Speech: Speech normal. Behavior: Behavior is agitated. Thought Content: Thought content includes suicidal ideation. Thought content does not include homicidal ideation. Thought content does not include homicidal or suicidal plan. MDM & ED Course I examined the patient myself and ordered the above labs, imaging, therapeutics, and consultations. I discussed the patient with the attending physician, Dr. Andre. DDx: suicidal ideation, suicide attempt, depression, intentional overdose, secondary gain Plan Labs- UDS Imaging- none Therapeutics- prns for agitation Consultations- psych Prior records reviewed. UDS pending. Low suspicion for DKA given pt denies n/v, recent illness, polyuria/polydipsia. Clinically does not appear dehydrated on exam. Patient has been medically cleared. Psychiatry has been consulted and recommendations are pending. Impression - SI Dispo: pending psych eval ED Course as of 02/09/24 1434 WedFebruary 09, 2024 1251 Pending psych eval, SMART note is in. 1433 GLUCOSE, POINT OF CARE(!!): 406 Sliding scale ordered SMART MEDICAL CLEARANCE Medical clearance pathway for ED patients requiring clearance prior to transfer to inpatient psychiatric facilities with minimal lab testing. Suspect New Onset Psychiatric Condition? No Medical Conditions that Require Screening? Diabetes (FSBS less than 60 or greater than 250): Yes, hx of uncontrolled diabetes, not currently on medications. No S&S of DKA Possibility of (age 12-50): Yes, Urine HCG pending Other complaints that require screening: No POC Glucose, blood: Lab Results Component Value Date GLUCOSE 282 (H) 02/09/2024 Abnormal Vital Signs? Vital Signs: Vitals: 02/09/24 0718 BP: 117/61 Pulse: 86 Resp: 20 Temp: 97.9 F (36.6 C) SpO2: 96% Oxygen Saturation Oxygen Therapy O2 Sat (%): 96 % Temp greater than 38.0 C (100.4 F): No HR less than 50 or greater than 110: No BP less than 100 systolic or greater than 180/110 (2 consecutive readings): No RR less than 8 or greater than 22: No O2 Sat less than 95% on room air: No Mental Status Abnormal? Cannot answer name, month/year and location (minimum A/O x 3): No Clinically intoxicated: No Physical Exam Abnormal? No Risky Presentation? No 43 y.o. (Age less than 12 or greater than 55) No Possibility of ingestion? No Eating disorders or not tolerating oral intake? No Potential for requiring medication to treat alcohol withdrawal (daily use for two weeks or more)? No Ill-appearing, significant injury, prolonged struggle or "found down"? No Therapeutic Levels Needed? Some examples include Phenytoin, Valproic Acid, [place], Digoxin, Warfarin: No ARE ANY OF THE ABOVE ANSWERS YES? Yes If ALL five SMART categories are checked NO then the patient is considered medically cleared and no testing is indicated. If ANY category is checked YES then appropriate testing and/or documentation of rationale must be reflected in the medical record and time resolved must be documented above. For further details of the case and routine testing, please refer back to ED provider note. COVID status: Has the patient tested positive for COVID within the last 10 days? No If a patient is COVID positive within the last 10 days, they may not be psychiatrically admitted until they have cleared isolation per epidemiology guidelines. Marley Perez, DO Resident 02/09/24 1046 Marley Perez, DO Resident 02/09/24 1110 Marley Perez DO Resident 02/09/24 1153 While getting PT into her room, PT is agitated about the temperature of the room, yelling that it is too hot and humid. PT expressed that she strongly dislikes other women and will not be treated by them. PT states she needs food and sleep. Pt states she does not take care of her diabetes and does not want staff to monitor glucose however allowed blood sugar to be taken. Pt presents to ED cc SI pt was found sleeping outside of [facility]. Pt states she is homeless which is what is causing her SI thoughts and having difficulty with dealing with her diabetes and states no one ever taught her how to manage her diabetes, Pt main complaints is that she is tired and hungry and would like help with her SI thoughts and sick of being homeless does not want to go to a alf because they treat her poorly. documented in this encounter [facility] 02-09-2024 Hospital Discharg cayla Smithian Roderick, GASPER - 02/09/2024 3:12 PM EDT You received a psychiatric evaluation in the [facility] Emergency Department. Your reason for visit is: suicidal ideation without a plan Thank you for allowing the Psychiatric Emergency Services team to assist you today. General psychiatry recommendations: 1. Patient to continue with current psychiatric medications as prescribed. 2. Follow up with current mental health provider as soon as possible. 3. Remove or limit access to firearms; sharps; medications; and any other potentially dangerous objects or materials in the home. 4. Utilize family and friends as needed for support. 5. Avoid alcoholic beverages and non-prescription or illicit drugs that could impair judgment or contribute to the severity of your symptoms. 6. Follow up with your primary care physician as needed for any medical concerns. 7. If symptoms become worse or you have thoughts of hurting yourself or others please call 911 or return to the emergency department. We are recommending you follow-up with a Community Mental Health Agency. Mental health agencies provide a number of services including counseling, case management services, medication management, and substance abuse treatment services. Please call to schedule or confirm your appointment: [facility]: [address], [place] [address] ext [phone] [facility]: [address], [place] [address] [facility] [place], [place] [address] Additionally, you can follow-up with the [facility] for additional resources. The [facility] is committed to the recovery of all individuals who live with mental illness, addiction, and trauma and provides daily activities, including: Peer Support Socialization, Resource Center, Media Center, Arts & Crafts, Coping Strategies, Life Skills, and Wellness Programs Locations: [address] [place] [address] - - Hours: Open Daily from 9am to 9pm [address] [place] [address] - - Hours: Open Daily from 8am to 8pm Experiencing homelessness? Here are additional resources: Group Home assistance: Call the homeless hotline, open 24 hours a day, at 769-361-9570 [facility] to Housing Outreach Collaborative: [facility] has established this general number for anyone in need of or reporting a need for street outreach services. This line is answered by a [facility] steam trap man. When appropriate, [facility] will link people with the [facility] team. Otherwise, [facility] will begin engaging clients and working on access to needed care, determining a housing plan, and gathering documentation for housing Call [phone] [facility]: The [facility] is committed to the recovery of all individuals who live with mental illness, addiction, and trauma and provides daily activities, including: Peer Support Socialization, Resource Center, Media Center, Arts & Crafts, Coping Strategies, Life Skills, and Wellness Programs Locations: [address] [place] [address] - - Hours: Open Daily from 9am to 9pm [address] [place] [address] - - Hours: Open Daily from 8am to 8pm See provided [facility] Card for additional resources regarding housing, food, clothing, healthcare, mental healthcare, addiction, employment and ID resources and services Helpful phone numbers: Suicide Prevention Lifeline: 988 Suicide Hotline: 483.388.1069 Seniors Suicide Hotline: 267.915.8805 Teen Suicide Hotline: 416.100.[address] [facility] Emergency Room: [phone] (free counseling) If you feel unsafe at any time, call 911 or go to the nearest emergency room. Safety Plan Information What is a Safety Plan? A Safety Plan is a prioritized, written list of coping tools and sources of support to use when you are feeling suicidal so that you do not act on your suicidal feelings. It is a personally tailored emergency plan. Why should I use the Safety Plan? The Safety Plan helps prevent a suicidal crisis from escalating so that you do not act on urges to self-harm. Acute suicidal crises, when people are most in danger of acting on suicidal feelings, often last only for a brief time. The Safety Plan helps you get through this time without making a suicide attempt. When should I use my Safety Plan? You should use your Safety Plan whenever you recognize any of your personal warning or danger signs that are listed on the Safety Plan. How should I use the Safety Plan? Once you recognize your warning signs, follow the specific instructions that are described on each step of your Safety Plan. If doing things on one step doesn t help to reduce the crisis, then go to the next step until the crisis has lessened. Where should I keep my Safety Plan? You should keep your Safety Plan in a place where you are able to easily find it and use it. Some people keep their Safety Plans at home and other people carry it with them in their purse, wallet, pocket or cell phone. Should I share my Safety Plan with others? Sometimes it is helpful to share your Safety Plan with a family member or close friend who can help you during a crisis. What do I do if I lose the Safety Plan? A copy of your Safety Plan is stored in your electronic health record. A clinician may be able to retrieve a copy of your Safety Plan for you. Many people make copies of their safety plan or keep a copy on their cell phone. Does the Safety Plan work? Recent research has been conducted that supports the effectiveness of the Safety Planning. Individuals who received the Safety Plan Intervention were less likely report suicidal behaviors during follow-up than individuals who did not receive the intervention. SAFETY PLAN We made the following Safety Plan Intervention: STEP 1: Warning Signs: Knowing the warning signs of depression or suicide can help in building skills on how to identify when you may need to seek help in the future. The following are warning signs of suicide or worsening depression: Withdrawal from friends, family, and social activities. Increased feelings of hopelessness; belief that things will never get better, and nothing will ever change. Talking of feeling suicidal: directly- "I want to kill myself" or indirectly- "I won't be a problem for much longer." Putting themselves down (example: "I am no good" or "I am a bad person ). Putting affairs in order, giving away possessions. Loss of energy, loss of pleasure in activities that were previously enjoyed. Increased complaints of physical symptoms. Change of eating habits or sleep pattern. Deterioration of work or school performance. Increased anxiety. Increasing hostility or anger to others. The recent loss of family, friend, or relationship can be a trigger for suicide. STEP 2: Internal Coping Strategies-Things I can do to take my mind off my problems without contacting another person: 1. "Music" 2. "Watch a horror movie" 3. Other coping mechanisms include: Exercise or take a walk daily. Use relaxation or deep breathing. Engage in a positive recreation interest. Listen to calming music. Manage your time well. Talk to someone. Take a break. Eat a balanced diet. Maintain a regular sleep schedule. Spend time with a support person or pet. Step 3: People and social settings that provide distraction: Homeless shelters [facility] (info provided above) Step 4-5: People and Professionals or agencies I can contact during a crisis: 1. Helpful Phone Numbers [facility]: [phone] ([phone]) Suicide Prevention Lifeline: 988 Suicide Hotline: 544.403.9340 Seniors Suicide Hotline: 544.289.4175 [facility] [place]: 263.286.7615 (free counseling) 2. Local Emergency Service: Emergency Department at [facility] Emergency Services Address: [address] [place], [place] [address], [place] [address] Emergency Services Phone: [phone] Step 6: Making the environment safe: Knowing how you can keep your environment safe can help prevent you from engaging in self-harming behaviors in the future. Here is a list of tips to make your home a safer place: Check the home carefully for items that need to be removed, thrown away, or stored at another location. Remove all firearms (even antiques ones that you think don't work). Lock away ALL medicines, including over the counter ones. Lock up and monitor medicines that are prescribed and must be taken. Remove or lock up any toxic materials. documented in this encounter [facility] 02-09-2024 Emergency department Note Lunch provided to patient. [facility] 02-09-2024 Physician Emergen cy department Note EMERGENCY DEPARTMENT ENCOUNTER CHIEF COMPLAINT Suicidal HPI Sophie Munguia is a 43 y.o. female who presents to ED for SI. Patient states has been having suicidal ideation for a few weeks that's worsening. Patient denies plan or attempt. Patient states has many life stressors and is currently homeless and these things/stressors have caused her to become suicidal. Presented for worsening/more frequent thoughts. Reports maybe hearing voices telling her she is suicidal but patient is not sure. Reports hx of bipolar, depression, anxiety. Not currently on medications and is unsure how long she has been off medications. Denies prior suicidal attempts, current plan, hallucinations, hx of AH/VH, thoughts of harming others. Reports hx of tobacco use, marijuana use, and EtOH use - denies recent use "for weeks" because "I dont have money to buy anything". Identify Protective Factors (Protective factors may not counteract significant acute suicide risk factors) Internal: N/A External: N/A ED-SAFE PATIENT SECONDARY SCREENER (ESS-6) This tool should be administered by the provider after a patient endorses active ideation in the past 2 weeks (PSS Item 2= Yes) OR suicide attempt within the past 6 months (PSS Item 3= within past 6 months). Assess the following six indicators using all data available to you, including patient self-report, collateral information, medical record review, and current observations. Each "Yes" gets a score of 1 Positive on both safety screener (PSS-3) items - active ideation with a past attempt. Source: safety screening (PSS-3), documented on chart Active SI w/o past attempt Recurrent or current suicide plan* Suggested wording: Have you been thinking about how you might kill yourself? Denies plan Recurrent or current intent to act on ideation* Suggested wording: Have you had some intention of acting on your thoughts? no Lifetime psychiatric hospitalization Suggested wording: Have you ever been hospitalized for a mental health or substance abuse problem? no Pattern of excessive substance abuse Suggested Wording: Has drinking or drug abuse ever been a problem for you? Or positive on CAGE or other standardized substance use screener. no Current Irritability, agitation or aggression Source: clinical observation, collateral report. yes A. Assign a score of 1 for each "Yes" above and combine to obtain a total score. Score: 10/02 B. *Critical Item Review: - Item 2: Suicide plan present? no - Item 3: Intent present no - Current attempt? no The Purpose of this tool is initial stratification of clinical decision-making and risk mitigation. Not highly accurate prediction of suicide. Stratification instructions are below Stratification and Care Recommendations Check one box in each row based on the score in A and the critical item status in B: Negligible Mild Risk Moderate Risk High Risk A. Score Not applicable (negative on primary screener) __X_ 0-2 ____ 3-4 ___ 5-6 B. Critical Items ___ no current attempt _X_ no current attempt ___ no current attempt ___ current attempt ___ no suicide plan or intent _X_ no suicide plan or intent ___ suicide plan or intent ___ suicide plan and intent 2. Conclude risk level based on HIGHEST level category endorsed on any row: __X_mild ___moderate __high 3. Enact mitigation and recommend care appropriate to risk level: Mitigation and Recommended Care Mild Moderate High Constant observation not required Constant observation (1:several), make room safe recommended Constant observation (1:1) and make room safe or ligature resistant room recommend Behavioral health evaluation volutnary Behavioral health evaluation recommended Behavioral health evaluation recommended Suicide Prevention and Mental Health discharge resources Suicide Prevention and Mental Health discharge resources Suicide Prevention and Mental Health discharge resources Safety plan recommended at discharge Safety plan recommended at discharge Safety plan recommended at discharge PAST MEDICAL HISTORY No past medical history on file. SURGICAL HISTORY No past surgical history on file. CURRENT MEDICATIONS Current Outpatient Medications Medication Sig benzonatate 200 MG capsule Take 1 capsule by mouth three times a day if needed for cough for up to 7 days. Do not crush or chew. ALLERGIES No Known Allergies Family history reviewed and noncontributory other than: No family history on file. Social history reviewed and noncontributory other than: Social History Socioeconomic History Marital status: Single Spouse name: Not on file Number of children: Not on file Years of education: Not on file Highest education level: Not on file Occupational History Not on file Tobacco Use Smoking status: Every Day Types: Cigarettes Smokeless tobacco: Never Vaping Use Vaping status: Never Used Substance and Sexual Activity Alcohol use: Not Currently Drug use: Yes Types: Marijuana Sexual activity: Not on file Other Topics Concern Not on file Social History Narrative Not on file Social Determinants of Health Financial Resource Strain: Not on file Food Insecurity: Not on file Transportation Needs: Not on file Physical Activity: Not on file Stress: Not on file Social Connections: Not on file Intimate Partner Violence: Not on file Housing Stability: Not on file REVIEW OF SYSTEMS Review of Systems Constitutional: Negative for chills and fever. HENT: Negative. Respiratory: Negative. Cardiovascular: Negative. Gastrointestinal: Negative. Genitourinary: Negative. Musculoskeletal: Negative. Skin: Negative for itching and rash. Neurological: Negative. Psychiatric/Behavioral: Positive for depression, hallucinations and suicidal ideas. PHYSICAL EXAM VITAL SIGNS: BP 117/61 Pulse 86 Temp 97.9 F (36.6 C) (Oral) Resp 20 Ht 1.549 m (5' 1") SpO2 96% Smoking Status Every Day Physical Exam Constitutional: General: She is not in acute distress. Appearance: She is not toxic-appearing. HENT: Head: Normocephalic and atraumatic. Mouth/Throat: Mouth: Mucous membranes are moist. Cardiovascular: Pulses: Normal pulses. Heart sounds: Normal heart sounds. Pulmonary: Effort: Pulmonary effort is normal. Breath sounds: Normal breath sounds. Abdominal: General: Bowel sounds are normal. There is no distension. Palpations: Abdomen is soft. There is no mass. Tenderness: There is no abdominal tenderness. There is no guarding or rebound. Skin: General: Skin is warm and dry. Capillary Refill: Capillary refill takes less than 2 seconds. Neurological: Mental Status: She is oriented to person, place, and time. Mental status is at baseline. Psychiatric: Attention and Perception: Attention normal. Mood and Affect: Affect is angry. Speech: Speech normal. Behavior: Behavior is agitated. Thought Content: Thought content includes suicidal ideation. Thought content does not include homicidal ideation. Thought content does not include homicidal or suicidal plan. MDM & ED Course I examined the patient myself and ordered the above labs, imaging, therapeutics, and consultations. I discussed the patient with the attending physician, Dr. Andre. DDx: suicidal ideation, suicide attempt, depression, intentional overdose, secondary gain Plan Labs- UDS Imaging- none Therapeutics- prns for agitation Consultations- psych Prior records reviewed. UDS pending. Low suspicion for DKA given pt denies n/v, recent illness, polyuria/polydipsia. Clinically does not appear dehydrated on exam. Patient has been medically cleared. Psychiatry has been consulted and recommendations are pending. Impression - SI Dispo: pending psych eval ED Course as of 02/09/24 1434 WedFebruary 09, 2024 1251 Pending psych eval, SMART note is in. 1433 GLUCOSE, POINT OF CARE(!!): 406 Sliding scale ordered SMART MEDICAL CLEARANCE Medical clearance pathway for ED patients requiring clearance prior to transfer to inpatient psychiatric facilities with minimal lab testing. Suspect New Onset Psychiatric Condition? No Medical Conditions that Require Screening? Diabetes (FSBS less than 60 or greater than 250): Yes, hx of uncontrolled diabetes, not currently on medications. No S&S of DKA Possibility of (age 12-50): Yes, Urine HCG pending Other complaints that require screening: No POC Glucose, blood: Lab Results Component Value Date GLUCOSE 282 (H) 02/09/2024 Abnormal Vital Signs? Vital Signs: Vitals: 02/09/24 0718 BP: 117/61 Pulse: 86 Resp: 20 Temp: 97.9 F (36.6 C) SpO2: 96% Oxygen Saturation Oxygen Therapy O2 Sat (%): 96 % Temp greater than 38.0 C (100.4 F): No HR less than 50 or greater than 110: No BP less than 100 systolic or greater than 180/110 (2 consecutive readings): No RR less than 8 or greater than 22: No O2 Sat less than 95% on room air: No Mental Status Abnormal? Cannot answer name, month/year and location (minimum A/O x 3): No Clinically intoxicated: No Physical Exam Abnormal? No Risky Presentation? No 43 y.o. (Age less than 12 or greater than 55) No Possibility of ingestion? No Eating disorders or not tolerating oral intake? No Potential for requiring medication to treat alcohol withdrawal (daily use for two weeks or more)? No Ill-appearing, significant injury, prolonged struggle or "found down"? No Therapeutic Levels Needed? Some examples include Phenytoin, Valproic Acid, [place], Digoxin, Warfarin: No ARE ANY OF THE ABOVE ANSWERS YES? Yes If ALL five SMART categories are checked NO then the patient is considered medically cleared and no testing is indicated. If ANY category is checked YES then appropriate testing and/or documentation of rationale must be reflected in the medical record and time resolved must be documented above. For further details of the case and routine testing, please refer back to ED provider note. COVID status: Has the patient tested positive for COVID within the last 10 days? No If a patient is COVID positive within the last 10 days, they may not be psychiatrically admitted until they have cleared isolation per epidemiology guidelines. Marley Perez DO Resident 02/09/24 1046 Marley Perez DO Resident 02/09/24 1110 Marley Perez, Resident 02/09/24 1153 [facility] Work Phone: 02-09-2024 Emergency department Note While getting PT into her room, PT is agitated about the temperature of the room, yelling that it is too hot and humid. PT expressed that she strongly dislikes other women and will not be treated by them. PT states she needs food and sleep. Pt states she does not take care of her diabetes and does not want staff to monitor glucose however allowed blood sugar to be taken. [facility] 02-09-2024 Emergency department Note Pt presents to ED cc SI pt was found sleeping outside of [facility]. Pt states she is homeless which is what is causing her SI thoughts and having difficulty with dealing with her diabetes and states no one ever taught her how to manage her diabetes, Pt main complaints is that she is tired and hungry and would like help with her SI thoughts and sick of being homeless does not want to go to a alf because they treat her poorly. [facility] 02-08-2024 Emergency department Note DC papers provided, alf resources provided. Belongings returned to pt. [facility] 02-08-2024 Emergency department Note DC papers provided, alf resources provided. Belongings returned to pt. EMERGENCY DEPARTMENT ENCOUNTER CHIEF COMPLAINT Suicidal and Mental Health Problems HPI Sophie Munguia is a 43 y.o. female with PMH depression who presents with SI? Is on pink slip from [facility]. States she was there for 2.5 weeks for SI. Reports getting the help she needed there and no longer has SI. Upon discharge today, they wanted her to go to [place] homeless alf where she previously was. She did not want to go there because she states they are mean. Upon this, she states the psych social worker at [facility] pink slipped her and they sent her here. She does state she may have said she was going to hurt herself but denies multiple times that she is suicidal. Denies a plan or intent. Is not sure where she will go after discharge given she does not want to go to [place]. She denies SI, HI, AVH. Identify Protective Factors (Protective factors may not counteract significant acute suicide risk factors) Internal: Identifies reasons for living External: N/A ED-SAFE PATIENT SECONDARY SCREENER (ESS-6) This tool should be administered by the provider after a patient endorses active ideation in the past 2 weeks (PSS Item 2= Yes) OR suicide attempt within the past 6 months (PSS Item 3= within past 6 months). Assess the following six indicators using all data available to you, including patient self-report, collateral information, medical record review, and current observations. Each "Yes" gets a score of 1 Positive on both safety screener (PSS-3) items - active ideation with a past attempt. Source: safety screening (PSS-3), documented on chart no Recurrent or current suicide plan* Suggested wording: Have you been thinking about how you might kill yourself? no Recurrent or current intent to act on ideation* Suggested wording: Have you had some intention of acting on your thoughts? no Lifetime psychiatric hospitalization Suggested wording: Have you ever been hospitalized for a mental health or substance abuse problem? yes Pattern of excessive substance abuse Suggested Wording: Has drinking or drug abuse ever been a problem for you? Or positive on CAGE or other standardized substance use screener. no Current Irritability, agitation or aggression Source: clinical observation, collateral report. no A. Assign a score of 1 for each "Yes" above and combine to obtain a total score. Score: 10/02 B. *Critical Item Review: - Item 2: Suicide plan present? no - Item 3: Intent present no - Current attempt? no The Purpose of this tool is initial stratification of clinical decision-making and risk mitigation. Not highly accurate prediction of suicide. Stratification instructions are below Stratification and Care Recommendations Check one box in each row based on the score in A and the critical item status in B: Negligible Mild Risk Moderate Risk High Risk A. Score Not applicable (negative on primary screener) ___ 0-2 ____ 3-4 ___ 5-6 B. Critical Items ___ no current attempt ___ no current attempt ___ no current attempt ___ current attempt __x_ no suicide plan or intent ___ no suicide plan or intent ___ suicide plan or intent ___ suicide plan and intent 2. Conclude risk level based on HIGHEST level category endorsed on any row: __x_mild ___moderate __high 3. Enact mitigation and recommend care appropriate to risk level: Mitigation and Recommended Care Mild Moderate High Constant observation not required Constant observation (1:several), make room safe recommended Constant observation (1:1) and make room safe or ligature resistant room recommend Behavioral health evaluation volutnary Behavioral health evaluation recommended Behavioral health evaluation recommended Suicide Prevention and Mental Health discharge resources Suicide Prevention and Mental Health discharge resources Suicide Prevention and Mental Health discharge resources Safety plan recommended at discharge Safety plan recommended at discharge Safety plan recommended at discharge PAST MEDICAL HISTORY No past medical history on file. SURGICAL HISTORY No past surgical history on file. CURRENT MEDICATIONS Current Outpatient Medications Medication Sig benzonatate 200 MG capsule Take 1 capsule by mouth three times a day if needed for cough for up to 7 days. Do not crush or chew. ALLERGIES No Known Allergies Family history reviewed and noncontributory other than: History reviewed. No pertinent family history. Social history reviewed and noncontributory other than: Social History Socioeconomic History Marital status: Not on file Spouse name: Not on file Number of children: Not on file Years of education: Not on file Highest education level: Not on file Occupational History Not on file Tobacco Use Smoking status: Not on file Smokeless tobacco: Not on file Substance and Sexual Activity Alcohol use: Not on file Drug use: Not on file Sexual activity: Not on file Other Topics Concern Not on file Social History Narrative Not on file Social Determinants of Health Financial Resource Strain: Not on file Food Insecurity: Not on file Transportation Needs: Not on file Physical Activity: Not on file Stress: Not on file Social Connections: Not on file Intimate Partner Violence: Not on file Housing Stability: Not on file PHYSICAL EXAM VITAL SIGNS: BP 125/77 Pulse 86 Temp 98 F (36.7 C) (Oral) Resp 12 Ht 1.549 m (5' 1") SpO2 98% Physical Exam Psychiatric: Attention and Perception: Attention normal. Mood and Affect: Mood is not anxious. Affect is not blunt, angry or tearful. Speech: Speech is not rapid and pressured, delayed or tangential. Behavior: Behavior normal. Behavior is cooperative. Thought Content: Thought content is not paranoid or delusional. Thought content does not include homicidal or suicidal ideation. Judgment: Judgment is not impulsive or inappropriate. ASSESSMENT & PLAN Differential Diagnosis includes but is not limited to: suicidal ideation, homicidal ideation, psychosis, drug ingestion, drug intoxication Initial Plan: Labs: Imaging: Interventions: MDM: Sophie Indra is a 43 y.o. female with PMH depression who presents from [facility] on pink slip for SI. Patient is afebrile and HDS upon arrival. She adamantly denies SI. States she was sent here bc she refused to go to homeless alf. Repeatedly denies SI. She is linear, logical, and does not represent a threat to herself at this time Spoke with SW who provided resources to patient. Mentor slip will be revoked and patient will be discharged. Medical Decision Making ED Course: Impression: depression Disposition: PINK SLIP REVOKED -- DISCHARGE TO HOME I reviewed previous records, examined and spoke to the patient, and ordered the above labs, imaging, therapeutics, and consultations. I have discussed the patient with the attending physician and they agree with the work up and plan Washington Quintana MD Resident 02/08/242028 Pt requesting food. Pt was given hot meal and a cup of Sprite. Pt looked at this [employer] and said "this is it!? I am a diabetic, this is not enough food for a diabetic. I am going to starve. I hope they release me soon so I can go somewhere with my food stamps." Pt continues to talk to herself stating how she is going to starve and calling this [employer]UCK [employer]IVER and primary RN 'wilton.' ED SW consulted by MD Lilian, as pt has been psychiatrically and medically cleared by care team and needs assistance with discharge coordination. Pt presented from [facility] per , on a pinkslip that was overturned. Reportedly pt has a bed at [facility], but doesn't want to return there, as the staff are not kind. ED SW called the [facility] hot[facility]. There is a 9 minute wait on the phone, so TW provided work number to receive a call back. SW received a call back from the [facility] hotline dispatcher, who states the pt does NOT have a bed still at [facility]. And the hotline is still working off of a waitlist. Care team and patient notified and streetcard placed in AVS. Pt informed if she remains calm and cooperative she is permitted to wait in the lobby until morning. Empathy and reflective listening provided, as pt feels bad for being sent here and taking up a spot when she isn't suicidal. Pt says she just needs a place to stay and isn't familiar with [place]. TNAI updated paving inspector Courtney and care team that pt will be waiting until the rain passes in lobby or until morning when a day alf opens up. Time Spent: 40 minutes SW called [facility] to obtain more information on their group homes. At this time, there are no female beds available. SW went to provide suggestions for drop-in centers for the morning in [facility], but patient was nowhere to be found. SW also verified with [facility] that there are no overnight warming stations any longer. Patient may have stepped outside to go smoke a cigarette post-discharge somewhere. SW to try and touch base with patient again. *TW did NOT partake in the assessment of this patient, and was merely contacted for discharge coordination. LEXY Davalos [phone] Images from the original note were not included. ED Attending Chief complaint: Chief Complaint Patient presents with Suicidal Mental Health Problems Sophie Munguia presents to the Emergency Department from [facility] for suicidal ideation. Patient states that she was leaving that care and they told her she had to go back to a specific homeless alf that she does not like. She admits that she did make comments that she would not take care of herself anymore as she had to go back there. She states that she does not actually want to hurt herself and is not suicidal. She denies any homicidal ideation or hallucinations. She states that she would like to go to a homeless alf that is actually going to take care of her. No past medical history on file. No past surgical history on file. Social History Socioeconomic History Marital status: Not on file Spouse name: Not on file Number of children: Not on file Years of education: Not on file Highest education level: Not on file Occupational History Not on file Tobacco Use Smoking status: Not on file Smokeless tobacco: Not on file Substance and Sexual Activity Alcohol use: Not on file Drug use: Not on file Sexual activity: Not on file Other Topics Concern Not on file Social History Narrative Not on file Social Determinants of Health Financial Resource Strain: Not on file Food Insecurity: Not on file Transportation Needs: Not on file Physical Activity: Not on file Stress: Not on file Social Connections: Not on file Intimate Partner Violence: Not on file Housing Stability: Not on file History reviewed. No pertinent family history. BP 125/77 Pulse 86 Temp 98 F (36.7 C) (Oral) Resp 12 Ht 1.549 m (5' 1") SpO2 98% Reviewed PMH and PSH as well as medical record. ROS: Pertinent positives and negative are included in HPI. All other review of systems were reviewed and are negative unless otherwise documented. Pertinent Physical Exam findings: Gen: NAD, well appearing CV: RRR, no tachycardia Pulm: no increased effort or respiratory distress GI: abdomen soft, non tender, non distended Neuro: AAOx4, no focal neurological deficits Medical Decision Making/Plan Medical Decision Making Patient presents to the emergency department alert and in no acute distress. Vital signs unremarkable. Patient is currently not suicidal or homicidal. She made it Behavioral statement because she did not want to go back to the specific homeless alf. terminal worker met with the patient to discuss homelessness resources. Patient is pink slipped was clear to this time. She does not have any acute psychiatric needs. She is eating without any difficulty. Shared decision making occurred between the patient and this provider and it was determined that they were safe for discharge. Return precautions discussed. Risk OTC drugs. Impression: Homelessness Disposition: Discharge No results found for this visit on 02/08/24. No orders to display On 02/08/2024 I saw and examined the patient. I discussed the history and examination with the resident and agree with the plan of care. I reviewed imaging and labs that were obtained. MD Mami Hester MD 02/08/242031 Patient into the ER via [facility]. Patient was supposed to be discharged from [facility], but now would like to be admitted to [place]. Pt has type II diabetes. Patient is pinkslipped. [facility] Was supposed to be dc[facility] from [facility], but she now states that she has SI. Wants to be admitted to [facility]. Coming by [facility] documented in this encounter [facility] 02-08-2024 Physician Emergen cy department Note EMERGENCY DEPARTMENT ENCOUNTER CHIEF COMPLAINT Suicidal and Mental Health Problems HPI Sophei Munguia is a 43 y.o. female with PMH depression who presents with SI? Is on pink slip from [facility]. States she was there for 2.5 weeks for SI. Reports getting the help she needed there and no longer has SI. Upon discharge today, they wanted her to go to [facility] alf where she previously was. She did not want to go there because she states they are mean. Upon this, she states the psych social worker at [facility] pink slipped her and they sent her here. She does state she may have said she was going to hurt herself but denies multiple times that she is suicidal. Denies a plan or intent. Is not sure where she will go after discharge given she does not want to go to [place]. She denies SI, HI, AVH. Identify Protective Factors (Protective factors may not counteract significant acute suicide risk factors) Internal: Identifies reasons for living External: N/A ED-SAFE PATIENT SECONDARY SCREENER (ESS-6) This tool should be administered by the provider after a patient endorses active ideation in the past 2 weeks (PSS Item 2= Yes) OR suicide attempt within the past 6 months (PSS Item 3= within past 6 months). Assess the following six indicators using all data available to you, including patient self-report, collateral information, medical record review, and current observations. Each "Yes" gets a score of 1 Positive on both safety screener (PSS-3) items - active ideation with a past attempt. Source: safety screening (PSS-3), documented on chart no Recurrent or current suicide plan* Suggested wording: Have you been thinking about how you might kill yourself? no Recurrent or current intent to act on ideation* Suggested wording: Have you had some intention of acting on your thoughts? no Lifetime psychiatric hospitalization Suggested wording: Have you ever been hospitalized for a mental health or substance abuse problem? yes Pattern of excessive substance abuse Suggested Wording: Has drinking or drug abuse ever been a problem for you? Or positive on CAGE or other standardized substance use screener. no Current Irritability, agitation or aggression Source: clinical observation, collateral report. no A. Assign a score of 1 for each "Yes" above and combine to obtain a total score. Score: 10/02 B. *Critical Item Review: - Item 2: Suicide plan present? no - Item 3: Intent present no - Current attempt? no The Purpose of this tool is initial stratification of clinical decision-making and risk mitigation. Not highly accurate prediction of suicide. Stratification instructions are below Stratification and Care Recommendations Check one box in each row based on the score in A and the critical item status in B: Negligible Mild Risk Moderate Risk High Risk A. Score Not applicable (negative on primary screener) ___ 0-2 ____ 3-4 ___ 5-6 B. Critical Items ___ no current attempt ___ no current attempt ___ no current attempt ___ current attempt __x_ no suicide plan or intent ___ no suicide plan or intent ___ suicide plan or intent ___ suicide plan and intent 2. Conclude risk level based on HIGHEST level category endorsed on any row: __x_mild ___moderate __high 3. Enact mitigation and recommend care appropriate to risk level: Mitigation and Recommended Care Mild Moderate High Constant observation not required Constant observation (1:several), make room safe recommended Constant observation (1:1) and make room safe or ligature resistant room recommend Behavioral health evaluation volutnary Behavioral health evaluation recommended Behavioral health evaluation recommended Suicide Prevention and Mental Health discharge resources Suicide Prevention and Mental Health discharge resources Suicide Prevention and Mental Health discharge resources Safety plan recommended at discharge Safety plan recommended at discharge Safety plan recommended at discharge PAST MEDICAL HISTORY No past medical history on file. SURGICAL HISTORY No past surgical history on file. CURRENT MEDICATIONS Current Outpatient Medications Medication Sig benzonatate 200 MG capsule Take 1 capsule by mouth three times a day if needed for cough for up to 7 days. Do not crush or chew. ALLERGIES No Known Allergies Family history reviewed and noncontributory other than: History reviewed. No pertinent family history. Social history reviewed and noncontributory other than: Social History Socioeconomic History Marital status: Not on file Spouse name: Not on file Number of children: Not on file Years of education: Not on file Highest education level: Not on file Occupational History Not on file Tobacco Use Smoking status: Not on file Smokeless tobacco: Not on file Substance and Sexual Activity Alcohol use: Not on file Drug use: Not on file Sexual activity: Not on file Other Topics Concern Not on file Social History Narrative Not on file Social Determinants of Health Financial Resource Strain: Not on file Food Insecurity: Not on file Transportation Needs: Not on file Physical Activity: Not on file Stress: Not on file Social Connections: Not on file Intimate Partner Violence: Not on file Housing Stability: Not on file PHYSICAL EXAM VITAL SIGNS: BP 125/77 Pulse 86 Temp 98 F (36.7 C) (Oral) Resp 12 Ht 1.549 m (5' 1") SpO2 98% Physical Exam Psychiatric: Attention and Perception: Attention normal. Mood and Affect: Mood is not anxious. Affect is not blunt, angry or tearful. Speech: Speech is not rapid and pressured, delayed or tangential. Behavior: Behavior normal. Behavior is cooperative. Thought Content: Thought content is not paranoid or delusional. Thought content does not include homicidal or suicidal ideation. Judgment: Judgment is not impulsive or inappropriate. ASSESSMENT & PLAN Differential Diagnosis includes but is not limited to: suicidal ideation, homicidal ideation, psychosis, drug ingestion, drug intoxication Initial Plan: Labs: Imaging: Interventions: MDM: Sophie Munguia is a 43 y.o. female with PMH depression who presents from [facility] on pink slip for SI. Patient is afebrile and HDS upon arrival. She adamantly denies SI. States she was sent here bc she refused to go to homeless alf. Repeatedly denies SI. She is linear, logical, and does not represent a threat to herself at this time Spoke with SW who provided resources to patient. Mentor slip will be revoked and patient will be discharged. Medical Decision Making ED Course: Impression: depression Disposition: PINK SLIP REVOKED -- DISCHARGE TO HOME I reviewed previous records, examined and spoke to the patient, and ordered the above labs, imaging, therapeutics, and consultations. I have discussed the patient with the attending physician and they agree with the work up and plan Washington Quintana MD Resident 02/08/242028 [facility] 02-08-2024 Emergency department Note Pt requesting food. Pt was given hot meal and a cup of Sprite. Pt looked at this FUEL OIL TRUCK DRIVER and said "this is it!? I am a diabetic, this is not enough food for a diabetic. I am going to starve. I hope they release me soon so I can go somewhere with my food stamps." Pt continues to talk to herself stating how she is going to starve and calling this FUEL OIL TRUCK DRIVER and primary RN 'wilton.' [facility] 02-08-2024 Emergency department Note ED SW consulted by MD Lilian, as pt has been psychiatrically and medically cleared by care team and needs assistance with discharge coordination. Pt presented from [facility] per MD, on a pinkslip that was overturned. Reportedly pt has a bed at [facility], but doesn't want to return there, as the staff are not kind. ED SW called the homeless hotline. There is a 9 minute wait on the phone, so TW provided work number to receive a call back. SW received a call back from the homeless hotline dispatcher, who states the pt does NOT have a bed still at [facility]. And the hotline is still working off of a waitlist. Care team and patient notified and streetcard placed in AVS. Pt informed if she remains calm and cooperative she is permitted to wait in the lobby until morning. Empathy and reflective listening provided, as pt feels bad for being sent here and taking up a spot when she isn't suicidal. Pt says she just needs a place to stay and isn't familiar with [place]. SW updated paving inspector Rachel and care team that pt will be waiting until the rain passes in lobby or until morning when a day alf opens up. Time Spent: 40 minutes TANI called [facility] to obtain more information on their group homes. At this time, there are no female beds available. TANI went to provide suggestions for drop-in centers for the morning in [facility], but patient was nowhere to be found. SW also verified with homeless hotline that there are no overnight warming stations any longer. Patient may have stepped outside to go smoke a cigarette post-discharge somewhere. SW to try and touch base with patient again. *TW did NOT partake in the assessment of this patient, and was merely contacted for discharge coordination. PETE DavalosW [phone] [facility] Discharg e instructions GASPER Brito - 02/08/2024 7:52 PM EDT S T R E E T C A R [place] Homeless Hotline To access a alf in [facility] call: [phone] Domestic Violence: [phone] RI N TA L H E A LT H & S U B S TA N C E A B U S E [facility] Drug and alcohol treatment - adults [address] [facility]. [phone] 9am-5pm M-F. ALCOHOLICS ANONYMOUS 19/04 Refer to support [facility] [phone] AL-ANON & AL-ATEEN 19/04 Refer to support [facility] [phone] COCAINE ANONYMOUS 19/04 Refer to support [facility] [phone] NARCOTICS ANONYMOUS 19/04 Refer to support [facility] [phone] [employer] Outpatient & residential drug and alcohol treatment for women & their children [address] [facility], M - F 8:30 - 4:30 [employer] Substance abuse counseling and treatment.Call for Appointment [address] M - Th 8:00- 6:00 & F 8:00 - 1:00 [facility] Drug & alcohol treat. for men [address], M - F 8:00 - 4:30 1034 [facility] [phone] [address] [phone] [facility] Addiction and mental health service [address] [phone] Call at 8:00 a.m. for inpatient services. [facility] Substance use counseling & prevention - [address] [phone] [facility] Crisis services for MH and AOD [address] [facility] [phone] 19/04 [facility] Mental health and AOD services [address] [facility] [phone] 16 [facility], M, W, F 8:00 - 5:00 T, Th 8:00 - 7:00 [facility] Mental health and AOD/OBOT services [address] [facility], [facility] Free 13-month residential recovery intake every Wed. 9:30am-women 3:30pm-men [address] [phone] [employer] SHOP Counseling and substance abuse services -[address] [phone] for appt. 9am-8pm [facility] [address] [facility] 10[address] [facility] & [address] [facility] HIV services [phone] M - F - 9:00 - 4:00 [facility] [address] (back of building) M - 4:30 Medical & dental [facility] [address] [facility] , Th 5:00 Arrive. Sign-up online at: [place] [address] [facility] - [phone] Walk-ins 2 - 4:30 pm [facility] Medical, dental, vision, & beh. health [address] [phone] ext. [phone] Mon. - Wed. 8:30am-5pm and Th. 6pm-8pm [facility] [address] [facility], M - F - 8:00 - 5:00 Sat - 8:00 - 12:00 additional locations available [place] [facility] [address] MEDICINE [phone] , Call for locations [facility] [address], Sun. - 7:00 - 8:30am IMT ([employer])[facility] Medical, dental, other services [address], [address] [phone] M -F 8a-5p [facility] Dental Care & Vision care by appt. Hilaria [address], Every Wed. and & - 5:30 [facility] Women's prev. health and vision [phone] for appt. [facility] medical, dental, vision, & chiropractic clinics for uninsured 18+ [phone] hours vary call for details [address] [facility] [address] [phone] hours vary call for details [facility] [address] [phone] and Wednesday each month [facility] Medical, dental, vision, ob-town justice, and transportation services call [phone] for details & locations [facility] [address] [phone] call for hours and appts [facility] SERVICE COMMISSION Helps veterans obtain benefits [address], M, W, , F 7:30 - 3:00 Emergency financial assist.T 12:30-3pm [facility] Med Care; Ref. for alf and Housing [address], M - F - 9:00 - 11:00 & 1:00 - 3:00 CRISIS LINE National Veterans Suicide Prevention Line.Crisis Assistance, 19/04 [facility] Career services for veterans [address] [phone], M -F 8a- 4p [facility] CENTER Mental Health; Readjustment; SexualT rauma; Bereavement 30 [facility], M - F - 8:00 - 4:30 [facility] Residential Alcohol & Drug Treatment; Employment Services; Emergency and Transitional Housing [address] [phone] ext. [phone] M - F - 8:00 - 5:00 [facility] SUPPORTIVE SERVICES FOR VETS FAMILIES Rapid Rehousing [phone] Wed - Wed 8-5p [facility] Homeless prevention & rapid rehousing [address] [place] [address] M-F - 8:00am - 5:00pm Y OUTH ASSISTANCE [facility] VOCATIONAL SERVICES (FORMERLY JYOTI) transitional age vocation services [address] [facility], [facility] Temporary alf, social science professor [address] [facility]. Crisis - [phone], 19/04 General - [phone], 8:30-5:00 [facility] Drop-In Center for homeless youth 14-24yo. Food, internet, showers, laundry, counseling Open 19/[address] [phone] [facility] Educational rights of homeless youth [address] [facility] [phone], ext. [phone] M - F 8:00 - 4:30 OUTREACH [facility] Homelessness, Housing & Drug and Alcohol Assistance fisher scallop 24 hours [address] [phone] [facility] [phone] M - F Please call for locations and details [facility] [address] [phone] Hours Vary PATH - A PROGRAM OF [facility] Outreach and linkage for homeless individuals to mental health and substance abuse services [phone] ext. [phone] Updated: 10/23/2019 [facility] [address] [place] [address] The following is a limited listing of area organizations that assist people experiencing homelessness. To receive information on additional resources, please contact [facility] at [phone] or . ID (IDENTIFICATION) EVICTION ASSISTANCE [employer] [facility] certificate vouchers [facility] [place] [address] [address] [facility]. [phone] Help for tenants facing eviction by M - F 10:00 -11:30am and 1:00-2:00pm, working w/emersond to maintain their housing [phone] ext [phone] [facility] [employer].eInstruction by [employer] State ID, certificate vouchers EMPLOYMENT ASSISTANCE [address] [phone] Weds - 9:00am [place] [employer] LEGAL [facility]ISTANCE [address] [facility] [address] [address] [phone] M-F 8:00 - 5:00 [employer] [address] [facility] [address] [facility] VOCATIONAL [phone] M - F - 8:30 - 5:00 [address] [facility]. [phone] M - F 8:00 - 5:[address] [facility] 4th of month [facility] [facility] 5:30pm - 6:30pm 1331 [facility] [phone] M - Th 8:00 - 4:00 F 8:00 - 12:00 [employer] INFO LINE [phone] [email or web address] [facility] FAMILY SERVICES [address] [phone] [facility] [employer] [address] [facility], 6th floor [address] DROP IN CENTERS FREE MEALS M-F 9-3pm 9 (last visitor at 2:30) 9:00-5:00 COMMUNITY KITCHEN [facility] [address] [facility], M - F - 8:00 - 1:00 Sat - 11:30 - 1:30 [facility] CENTER [address] [facility], [address] [facility], M - F - 10:00 - 2:00 Mon, Tue, Thur, Fri - 7:00 PM [facility] [address] [facility], T-Sat., 7:30 - 3:00 M, T, Th - 5:30, W 6:00 [facility] COMMUNITY KITCHEN [address] [facility] [address] M-Sat - 8:30-9:30 & M-Sat - 11:30-1:00 [facility] (MEN) [address] [facility], , M - F-6:30 - 7:15 Sat & Sun - 8:30-9:30, Every Day - 12:30 - 1:30 & 6:45 - 7:45 [facility] (WOMEN & CHILDREN) [address] [facility], Every Day - 7:30 - 8:15, 11:30 - 12:15 & 5:30 - 6:15 [facility] [facility] [employer] KITCHEN [address], M-F :10:30-12p lunch meal; Food pantry (west side residents only) [facility] [address] [facility], Every Wednesday at Noon [facility] [address], F - 12:00 - 2:00 [facility] OUTREACH [address], Sun. - 7am - 8:30 am [facility] [address], M - F - 10:30 - 2:00 [facility]. KITCHEN [address] , M - F - 8:30am - 9:30am & 11:30-12:30 [facility] [address], M - F - 1:30 - 3:30 [facility] [address], T - Sat - 8:00 - 10:00 T, W, Th, Sat - 12:00 - 1:00 F - Pizza - 5:00 - 6:00 [facility] [address], Mon. - Fri. - 11:00 - 12:30 [facility] [address] [facility][phone] Sun. - 1:30 [employer] [facility] [address], M, T, - 11:00 - 1:00 [employer] SHEEP [facility] [address] [facility]. [phone] Tuesdays 6:30pm & 2,3,4th Sat @9am [address] [facility]/[employer] [address] [facility], Tuesdays at 6:30pm [facility] [address] [facility]. - 6:00pm - 7:00pm Wednesday - 9:30am - 10:15am [address] 11:00-2pm Saturdays [phone] [facility] [address][phone] - 5:30pm, Sun 10:00am RITA 25:35 [facility] bible study & dinner Fri: 7pm-8:30pm [address] [facility] last Wed of the month 6pm exc Dec. [address] [facility], [place] [address] [employer] [facility] [address], 12-5pm Tue sack lunch 12-4pm CLOTHING & HOUSEHOLD [facility] [address] Wednesday7:00a-8:15a call for appt. for employment, clothing [facility] [employer] STORE [address] T, , Wed - 10:00 - 12:30 Weds - 1:00 - 3:30 Fri - 3:00 - 5:30 [employer]: T - 2:00 - 3:00 Weds - 10:00 - 11:00 [facility] [address] M - 10:00 - 12:00(doors open at 9:30) - 3:00 - 5:00(doors open at 2:30) Sat - 11:30-1:[address] Lunch served every Sat. 11:00 - 12:00 [facility] [address] [facility] Mon - urs 10:00 am - 11:30am [facility] [facility] [address], M-F: 9a - 5p, Sat: 9a -11a [employer] Sleeping bags for homeless individuals Call [phone] [email or web address] LONG-TERM HOUSING [facility] Low Income and Section 8 Call or apply in person [address] M - F - 8:00 - 4:30 [employer] Single Room Occupancy for Men [address] ext [phone] apply in person M - - 1-4pm [employer] Small 1 bedroom and efficiency apartments for single Women [address] [phone] ext. [phone] M - F 9:00 - 5:00 [employer]DITIONAL [employer]OURCES [employer] Utilities and rent [address] [facility]. [phone] Mon & Weds 10am - 3pm [facility] DEPARTMENT OF JOBS AND FAMILY SERVICES (Apply for PRC, SNAP, TANF & Medicaid) Benefits Online: http://benefits.[place].gov http://jfs.[facility] medical centero.g ov/ FAIR TREATMENT, REFORM & REENTRY Resources for people returning from halfway [phone] M-F 9am-5pm [facility] REENTRY TASK FORCE Ask for Reentry Task Force Help people coming out of [place] [facility] [place]/halfway find resources [phone] [facility] SUICIDE HOTLINE 19/04 J.O.I.N. Assistance with utilities, glasses, prescriptions, clothing, etc. [facility] [facility], M - F 10-11:30 & 1-2:[address] CARD STREET CARD STREET CARD STREET CARD [facility] [email or web address] The following attachments cannot be sent through Care Everywhere.Suicidal Thoughts (Slovak)documented in this encounter [facility] 02-08-2024 Physician Emergen cy department Note Images from the original note were not included. ED Attending Chief complaint: Chief Complaint Patient presents with Suicidal Mental Health Problems Sophie Munguia presents to the Emergency Department from [facility] for suicidal ideation. Patient states that she was leaving that care and they told her she had to go back to a specific homeless alf that she does not like. She admits that she did make comments that she would not take care of herself anymore as she had to go back there. She states that she does not actually want to hurt herself and is not suicidal. She denies any homicidal ideation or hallucinations. She states that she would like to go to a homeless alf that is actually going to take care of her. No past medical history on file. No past surgical history on file. Social History Socioeconomic History Marital status: Not on file Spouse name: Not on file Number of children: Not on file Years of education: Not on file Highest education level: Not on file Occupational History Not on file Tobacco Use Smoking status: Not on file Smokeless tobacco: Not on file Substance and Sexual Activity Alcohol use: Not on file Drug use: Not on file Sexual activity: Not on file Other Topics Concern Not on file Social History Narrative Not on file Social Determinants of Health Financial Resource Strain: Not on file Food Insecurity: Not on file Transportation Needs: Not on file Physical Activity: Not on file Stress: Not on file Social Connections: Not on file Intimate Partner Violence: Not on file Housing Stability: Not on file History reviewed. No pertinent family history. BP 125/77 Pulse 86 Temp 98 F (36.7 C) (Oral) Resp 12 Ht 1.549 m (5' 1") SpO2 98% Reviewed PMH and PSH as well as medical record. ROS: Pertinent positives and negative are included in HPI. All other review of systems were reviewed and are negative unless otherwise documented. Pertinent Physical Exam findings: Gen: NAD, well appearing CV: RRR, no tachycardia Pulm: no increased effort or respiratory distress GI: abdomen soft, non tender, non distended Neuro: AAOx4, no focal neurological deficits Medical Decision Making/Plan Medical Decision Making Patient presents to the emergency department alert and in no acute distress. Vital signs unremarkable. Patient is currently not suicidal or homicidal. She made it Behavioral statement because she did not want to go back to the specific homeless alf. terminal worker met with the patient to discuss homelessness resources. Patient is pink slipped was clear to this time. She does not have any acute psychiatric needs. She is eating without any difficulty. Shared decision making occurred between the patient and this provider and it was determined that they were safe for discharge. Return precautions discussed. Risk OTC drugs. Impression: Homelessness Disposition: Discharge No results found for this visit on 02/08/24. No orders to display On 02/08/2024 I saw and examined the patient. I discussed the history and examination with the resident and agree with the plan of care. I reviewed imaging and labs that were obtained. MD Mami Hester MD 02/08/242031 [facility] Work Phone: 02-08-2024 Emergency department Note Patient into the ER via [facility]. Patient was supposed to be discharged from [facility], but now would like to be admitted to [place]. Pt has type II diabetes. Patient is pinkslipped. Patient denies SI/HI. [facility] 02-08-2024 Emergency department Note [facility] - pink shannanped. Was supposed to be dc'd from [facility], but she now states that she has SI. Wants to be [facility] to [facility]. Coming by [facility] 01-07-2024 Emergency department Note Bed: ED-09 Expected date: Expected time: Means of arrival: Comments: m10 [facility] 01-07-2024 Miscellaneous Notes Formattin g of this note might be different from the original. Bed: ED-09 Expected date: Expected time: Means of arrival: Comments: m10 documented in this encounter [facility] 01-07-2024 History of Presen t illness Narrative HPI CC: Chief Complaint Patient presents with Homeless Pt to the ER due to being homeless and cold. She states she is anxious and has no where to go. Pt was given a phone to attempt to call alf. HPI/ROS: Sophie Munguia is a 43 y.o. female presenting with chief complaint of anxiety Patient arrives via EMS for anxiety. The patient states she is extremely anxious because she has no cigarettes, she was kicked out of her housing situation and does not know where to go, and she thinks her belongings were stolen. She was seen here yesterday for foot pain. Review of External Record -: Yes: ED record dated yesterday, 01/06/2024 was reviewed Past History: Past Medical History: Diagnosis Date Anxiety Bipolar 1 disorder (CMS/HCC) Depression Diabetes mellitus (CMS/HCC) History reviewed. No pertinent surgical history. Social History Tobacco Use Smoking status: Every Day Types: Cigarettes Smokeless tobacco: Never Substance Use Topics Alcohol use: Never Drug use: Never No family history on file. No Known Allergies Current Outpatient Medications Medication Instructions metFORMIN (GLUCOPHAGE) 500 mg, oral, 2 times daily with meals sulfamethoxazole-trimethoprim (Bactrim DS) 800-160 mg per tablet 1 tablet, oral, 2 times daily Physical Exam: Patient Vitals for the past 24 hrs: BP Temp Pulse Resp SpO2 Height Weight 01/07/24 1053 (!) 148/67 36.8 C (98.2 F) 84 20 97 % 1.651 m (65") 102 kg (224 lb 13.9 oz) CONSTITUTIONAL: Non-toxic appearing, but appears disheveled EYES: No scleral icterus HENT: External ears normal, external nose normal. RESPIRATORY: Normal chest excursion with respiration, no stridor. CARDIOVASCULAR: No cyanosis NEUROLOGICAL: Awake and alert. PSYCHOLOGICAL: The patient's mood and manner are appropriate. INTEGUMENTARY: Warm and dry. ABDOMINAL: Not obviously distended No orders to display Labs Reviewed - No data to display Medications - No data to display 1. Anxiety 2. Homelessness MDM/IMPRESSION/DISPOSITION: Sophie Munguia is a 43 y.o. female presenting with anxiety, homelessness Patient with normal vital signs. The patient's medical screening exam revealed that there is no medical emergency regarding this patient's visit today. Patient was provided a phone to make phone calls to attempt to get a spot in a alf. She had blood work yesterday which was unremarkable with the exception of hyperglycemia but no evidence of DKA. Patient will be discharged from the ER following phone calls. SEE ED COURSE BELOW FOR REAL TIME UPDATES IN THIS PATIENT'S CLINICAL CARE/TESTING RESULTS/DISPOSITION ED Course as of 01/07/24 1302 WedJan 07, 2024 1302 Patient was able to contact her clinical psychologist, housing is being arranged, will get cab Back to the alf to get belongings [ME] ED Course User Index [ME] Alfred Flores MD Clinical Impressions as of 01/07/24 1302 Anxiety Homelessness Alfred Flores MD 01/07/24 1136 Alfred Flores MD 01/07/24 1302 documented in this encounter [facility] 09-29-2023 Emergency department Note Bed: ED-10 Expected date: Expected time: Means of arrival: Ambulance-[facility] ([facility]) Comments: [facility] 09-29-2023 Miscellaneous Notes Formattin g of this note might be different from the original. Bed: ED-10 Expected date: Expected time: Means of arrival: Ambulance-[facility] ([facility]) Comments: documented in this encounter [facility] 09-29-2023 History of Presen t illness Narrative SAFETY STOP: Patient arrives via EMS. No beds currently available in ED. Patient is appropriate to proceed to triage to wait for bed to become available. AA&O x 4, ambulatory. Myesha Fuller RN 09/29/232100 The patient is a 43-year-old female with history of diabetes who presents to ED for evaluation of cough productive of clear sputum that she has had for the past 2 weeks. Patient denies fever, chills, myalgias, chest pain or difficulty breathing. No shortness of breath. Denies nausea, vomiting or abdominal pain. Patient states she had 1 episode of nonbloody diarrhea earlier today. She currently resides in a alf and was concerned about possible COVID or influenza as several people at the alf have been sick recently. Patient is a smoker. No other complaints at this time. REVIEW OF SYSTEMS/PAST MEDICAL HISTORY: All other systems reviewed and are negative except as noted. Nursing triage notes were reviewed by me and I agree. PHYSICAL EXAM: VITAL SIGNS: Reviewed by me. CONSTITUTIONAL: Well-hydrated. Breathing comfortably. HEAD: Normocephalic, atraumatic. EYES: No conjunctival injection, no icterus. Mucous membranes are moist and pink. EARS: External ears appear normal. NOSE: Nose appears normal. No rhinorrhea. NECK: No meningismus. RESPIRATORY: Normal chest excursion with respiration, no stridor. Clear to auscultation bilaterally without rales, rhonchi or wheezes. CARDIOVASCULAR: Regular rate and rhythm. NEUROLOGICAL: Awake, alert and oriented. PSYCHOLOGICAL: The patient's mood and manner are appropriate. INTEGUMENTARY: No rash or petechiae. The patient's presenting pulse oximetry was 97% on room air. This was interpreted as normal. I have reviewed the interpretation for the following study: PA and lateral chest x-ray Laboratory results have been reviewed by me. TREATMENT & MEDICAL DECISION MAKING: I saw and evaluated the patient. I have reviewed the chief complaint, triage note, past medical/surgical, family, and social history. The patient is breathing comfortably with a normal oxygen saturation on room air. History and examination are consistent with a viral illness which could possibly be due to COVID-19, influenza or nonspecific viral illness. Rapid COVID and influenza swabs were sent from triage and are both negative. Chest x-ray will be obtained to rule out pneumonia as her symptoms been present for the past 2 weeks. PROGRESS NOTE: The patient's chest x-ray is unremarkable with no evidence of pneumonia. Plan for discharge on [place]. Counseled regarding smoking cessation. Follow-up with PCP as needed. IMPRESSION: 1. Acute bronchitis 2. Tobaccoism Care is significantly affected by social determinants of health. Patient is a smoker. Rita Nielsen MD 09/29/232124 Rita Nielsen MD 09/29/232153 documented in this encounter [facility] 05-18-2023 Discharge summary Note Date/Time May 17, 2023 5:12pm [facility] Medical Records Department [address] [place] [address] Emergency Department Summary 05/17/23 MR#: [id number] Acct: [id number] Name: SOPHIE MUNGUIA Rep #:[id number] : 1980 42 From: Hilton Treviño PCP: Care Physician,No Primary Status :REG ER Location: ED HPI History of Present Illness Chief Complaint: Mental Health [facility] Medical History Anxiety Bipolar disorder delivery delivered Depression Diabetes Home Medications glipizide 5 mg tablet, extended release 24 hr 5 mg PO DAILY #30 tabs 03/25/23 [Rx Last Taken Unknown] aripiprazole 5 mg tablet mg 04/29/23 [History Last Taken Unknown] blood sugar diagnostic #25 ea 04/29/23 [Rx Last Taken Unknown] blood-glucose meter #1 ea 04/29/23 [Rx Last Taken Unknown] clonidine HCl 0.1 mg tablet mg 04/29/23 [History Last Taken Unknown] dulaglutide 0.75 mg/0.5 mL subcutaneous pen injector (Trulicity) mg subcut 04/29/23 [History Last Taken Unknown] glimepiride 2 mg tablet 2 mg PO BID 04/29/23 [History Last Taken Unknown] hydroxyzine HCl 10 mg tablet mg 04/29/23 [History Last Taken Unknown] Allergy/AdvReac Type Severity Reaction Status Date / Time No Known Allergies Allergy Verified 05/17/23 16:27 Social History Smoking Status: Heavy Smoker (>10/day) EXAM Physical Exam Const Vital Signs: 05/17/23 16:27 05/17/23 16:51 05/17/23 17:33 Temperature 97 F L Temperature Source Temporal Pulse Rate 98 72 Respiratory Rate 18 14 Respiratory Effort Normal Respiratory Pattern Normal Blood Pressure 145/93 H 140/85 H Blood Pressure Mean 110 103 Pulse Ox 95 98 Oxygen Delivery Method Room Air Room Air 05/17/23 19:00 05/17/23 22:02 Temperature Temperature Source Pulse Rate 65 86 Respiratory Rate 14 14 Respiratory Effort Respiratory Pattern Blood Pressure 110/72 141/99 H Blood Pressure Mean 84 113 Pulse Ox 100 100 Oxygen Delivery Method Room Air Room Air MDM MDM MDM Narrative Medical decision making narrative: HISTORY OF PRESENT ILLNESS: 41-year-old female here with concern for elevated blood sugar. States she has not been compliant with her home glipizide. She also states she is having suicidal thoughts, depression. States was at a homeless alf she does not plan on going back there. Denies any specific plan. Denies a history of suicidal attempt. Denies any homicidal ideation auditory visual hallucinations. REVIEW OF SYSTEMS: Pertinent positives: Elevated blood sugar, suicidal ideation Pertinent negatives: [Homicidal ideation, auditory visual loose Nations PHYSICAL EXAM: Nursing triage notes reviewed, Vital signs reviewed Constitutional: please see mdm HENT: MMM Eyes: Pupils equal round and reactive to light, Extraocular muscles intact Neck: No stridor, no JVD, full neck ROM Lungs: Clear to auscultation, No wheezing or rales. No increased work of breathing, no conversational dyspnea, no accessory muscle use, no nasal flaring. No respiratory distress noted Heart: Regular rate and rhythm, No murmurs, No rubs and No gallops, 2+ distal pulses (radial, femoral, posterior tibial) in all extremities Abdomen: Soft, there is no tenderness, rigidity, rebound or guarding, no obvious peritoneal signs, no palpable pulsatile abdominal masses, no auscultated abdominal bruit : No CVAT Extremities: No edema Neuro: No focal neurological deficits, cranial nerves II through XII intact, 5/5 strength in all extremities. Intact sensation to light touch in all extremities, 2+ reflexes bilateral patella tendons. Normal gait. No ataxia. Skin: No rash or lesions noted Psych: Normal affect, goal-directed thought process, appears well MEDICAL DECISION MAKING: Chief Complaint: Hyperglycemia, suicidal ideation External records reviewed: Prior ED visit reviewed. Seen on 04/29/2023 for type 2 diabetes hyperglycemia Factors affecting care: Type 2 diabetes Social determinants of health: Smoker History obtained from others: none Consults: behavioral health ALL IMAGES (IF OBTAINED) HAVE BEEN PERSONALLY REVIEWED AND INTERPRETED BY MYSELF. MDM Narrative: Patient was hemodynamically stable, afebrile, nontoxic-appearing. No focal neurologic deficits. I considered the following differential diagnosis: Hyperglycemia, DKA I obtain medical clearance labs as well as labs to rule out signs of DKA. There is no evidence of DKA on patient's labs. Remainder of medical clearance labs were unremarkable. Patient was medically cleared. Discussed the case with behavioral health. Behavioral health will begin looking for possible inpatient psychiatric placement given the patient's report of suicidal ideation. Patient was signed out to p.m. physician pending transfer to psychiatric facility. The patient and/or family, caregivers express understanding. The patient and/or family, caregivers agrees with the plan. Shared decision making: I will have a discussion with the patient and or visitors regarding risk/benefits of further testing or admission. They will be made aware of of the risk/benefits inherent in this decision they will be given the opportunity to voice understanding. Total critical care time today provided was at least 0 minutes. This excludes separately billable procedures. Critical care time (if documented) is secondary to the patient having high probability of clinically significant/life threatening deterioration in the patient's condition which required my urgent intervention. Lab Data Attestation: I reviewed the patient's lab results. Lab results narrative: CBC without leukocytosis, severe anemia, no thrombocytopenia. BMP without evidence of significant electrolyte abnormalities, no anion gap, no acute kidney injury. There is no evidence of DKA Urine tox screen negative Acetone negative Urine test is negative Labs: Laboratory Results - last 24 hr 05/17/23 05/17/23 05/17/23 17:14 17:41 21:48 WBC 5.6 RBC 4.68 Hgb 13.8 Hct 40.2 MCV 85.9 MCH 29.5 MCHC 34.3 RDW Std Deviation 40.7 RDW Coeff of [place] 13.1 Plt Count 223 MPV 8.8 Immature Gran % (Auto) 0.400 Neut % (Auto) 64.2 Lymph % (Auto) 24.3 [place] % (Auto) 7.2 Eos % (Auto) 3.2 Baso % (Auto) 0.7 Absolute Neuts (auto) 3.6 Absolute Lymphs (auto) 1.35 Nucleated RBC % 0 Sodium 139 Potassium 4.1 Chloride 107 Carbon Dioxide 26.0 Anion Gap 6 BUN 11 Creatinine 0.86 Estim Creat Clear Calc 63.65 Est GFR (MDRD) Af Amer 92 Est GFR (MDRD) Non-Af 76 BUN/Creatinine Ratio 12.8 Glucose 236 H Calcium 8.8 Serum , Qual NEGATIVE Urine Opiates Screen NEGATIVE Urine Methadone Screen NEGATIVE Ur Barbiturates Screen NEGATIVE Ur Phencyclidine Scrn NEGATIVE Ur Amphetamines Screen NEGATIVE MDMA (Ecstasy) Screen NEGATIVE U Benzodiazepines Scrn NEGATIVE Urine Cocaine Screen NEGATIVE U Cannabinoids Screen NEGATIVE Ur Drug Screen Comment Ethyl Alcohol < 3.0 Acetone Level NEGATIVE POC Glucose 199 H 130 H Discharge Plan Triage Chief Complaint: Mental Health Other Complaint: Hyperglycemia ED Provider: Hilton Pizarro Dx/Rx/DC Orders Prescriptions: No Action clonidine HCl 0.1 mg tablet Patient Comments: take 1 tablet by mouth twice a day as needed for anxiety glimepiride 2 mg tablet 2 mg PO BID aripiprazole 5 mg tablet Patient Comments: take one tablet by mouth once a day Trulicity 0.75 mg/0.5 mL pen injector SUBCUT hydroxyzine HCl 10 mg tablet Patient Comments: take 1 tablet by mouth 30 minutes before bedtime (DME) blood sugar diagnostic Strip See Rx Instructions .Route Qty: 25 0RF Rx Instructions: As directed (DME) blood-glucose meter [facility] See Rx Instructions .Route Qty: 1 0RF Rx Instructions: As directed glipizide 5 mg tablet extended release 24hr 5 mg PO DAILY Qty: 30 0RF Primary Care Provider: Care Physician,No Primary Referrals: Care Physician,No Primary [Primary Care Provider] - What to do if you have Problems For any increased pain, shortness of breath, bleeding, nausea or vomiting, chestpain, or any unexpected problems, contact your Primary Care Provider. Call [facility] ([phone]) or report to the closest Emergency Room. Call 911 if necessary. 05/17/23 5969 <Electronically signed by Hilton Juarez DO> Cosigner Signature (if applicable): CC: No Primary Care Physician ~ Signed [facility] Work Phone: Evaluation note* Diagnosis Chest pain, unspecified type- Primary Hyperglycemia Other abnormal glucose documented in this encounter [facility] Phone: evaluation noteNo assessment information available [facility] [employer] Phone: Evaluation note* Diagnosis Acute bronchitis, unspecified organism- Primary documented in this encounter [facility] note* Diagnosis Anxiety- Primary Anxiety state, unspecified Homelessness Lack of housing documented in this encounter [facility] note* Diagnosis Homelessness- Primary Lack of [facility] Diagnosis Suicidal ideation- Primary [facility]* Diagnosis Myalgia- Primary Unspecified myalgia and myositis documented in this encounter [facility] note* Diagnosis Hyperglycemia- Primary Other abnormal glucose Acute pain of left shoulder [facility] Instructions* Hesham Jacob MD - 02/18/2021 You are found to have high blood sugar in the emergency department. Please call and schedule an appointment with a primary care provider for further management of your diabetes. IT IT VERY IMPORTANT THAT YOU GET YOUR DIABETES UNDER CONTROL. PLEASE RETURN TO THE EMERGENCY DEPARTMENT IMMEDIATELY for worsening symptoms of increasing pain, shortness of breath, feeling of your heart fluttering or racing, swelling to your feet, unable to lay flat, or if you develop any concerning symptoms such as: high fever not relieved by acetaminophen (Tylenol) and/or ibuprofen (Motrin / Advil), chills, persistent nausea and/or vomiting, loss of consciousness, numbness, weakness or tingling in the arms or legs or change in color of the extremities, changes in mental status, persistent headache, blurry vision, loss of bladder / bowel control, unableto follow up with your physician, or other any other care or concern. * Attachments The following attachments cannot be sent through Care Everywhere. * Chest Pain ([place]) * Hyperglycemia: General Info ([place]) [facility] Hospital Discharge instructions* Attachments The following attachments cannot be sent through Care Everywhere. * Bronchitis ([place]) * Smoking Cessation: Health Benefits: General Info ([place]) [facility]* Attachments The following attachments cannot be sent through Care Everywhere. 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 Advance Directive Response Recorded Date/ Time Living Will No March 25, 2023 10:00am Power of Wood Boring Machine Operator No March 25 3 10:00am Advance Directive Response Recorded Date/ Time Living Will No May 17 3 4:51pm Power of Wood Boring Machine Operator No May 17, 2 023 4:51pm Summary Purpose Family History No Family History Records FoundNo Family History Records FoundNo Family History Records FoundNo Family History Records FoundNo Family History Records FoundNo Family History Records FoundNo Family History Records FoundNo Family History Records FoundNo Family History Records FoundNo Family History Records FoundNo Family History Records Found Chief Complaint and Reason for Visit Chief Complaint TEETH, LABS Chief Complaint TEETH, LABS high bs mental health Chief Complaint Admit Date TYPE 2 DM June 06, 2025 9:20am Additional Source Comments Reason for Visit (unrecogniz ed section and content) Reason Comments Chest Pain Reason Comments Cough Pt presents to ED vi a EMS to triage with a productive cough - reports clear phlegm - sx onset x2 weeks. Pt also states diarrhea x1 today. Pt presents from the alf and is requesting to be tested for COVID and Flu. Pt denies n/v. Pt denies SOB or CP. Denies fever/chills. Reason Comments Homeless Pt to the ER due to being homeless and cold. She states she is anxious and has no where to go. Pt was given a phone to attempt to call alf. Reason Comments Suicidal Mental Health Problems Reason Comments Suicidal Reason Comments Back Pain Homeless Reason Comments Hyperglycemia Shoulder Pain Scheduled Active and Recently Administ ered Medications (unrecognized section and content) Medication Order 02/16/2021 02/17/2021 02/18/2021 0.9 % sodium chloride bolus (COMPLETED) 1,000 mL (9.18 mL/kg), Intravenous, at 1,000 mL/hr, Administer over 1 Hours, ONCE, On Wed02/18/21 at 0100, For 1 dose 0056 (New Bag - Prov ider: Valentina Madrid RN)0230 (Stopped - Provider: Valentina Madrid RN) Scheduled Medication Order 02/07/2024 02/08/2024 02/09/2024 Insulin lispro (HUMALOG) injection(Linked Group 1) Subcutaneous, 4 TIMES DAILY WITH MEALS & AT BEDTIME, First dose on Wed02/09/24 at 1345, Until Discontinued, Insulin to carb ratio: Standard: 1 unit insulin = 10 grams carbs every meal and at bedtime Correction Factor: 151-200 = 1 unit; 201-250 = 2 units; 251-300 = 3 units; 301-350 = 4 units; 351-400 = 5 units; Kwikpen: Prime pen before each injection; refer to Pen Priming and Care Handout for further details. Warning! Confirm patient. Insulin pen is for labeled individual patient use ONLY. 1347 (Given - Provid er: Yessica Singh RN)1700 (Canceled Entry - Provider: System Discharge - Comment: Automatically canceled at discontinue of medication order) PRN Medication Order 02/07/2024 02/08/2024 02/09/2024 Acetaminophen (TYLENOL) tablet 650 mg 650 mg, Oral, EVERY 6 HOURS NEEDED, Starting on Wed02/09/24 at 0912, Until Wed02/09/24 at 1752, Mild Pain, Maximum dose of acetaminophen is 4000 mg from all sources in 24 hours. Dextrose 50% injection 7.5-25 g(Linked Group 1) 7.5-25 g, Intravenous, ADMINISTER DIRECTED, Starting on Wed02/09/24 at 1329, Until Wed02/09/24 at 1752, Blood glucose <80 mg/dL, For patients who are not alert, are NPO, or are on IV insulin infusion administer as directed per Hypoglycemia in Non- Adults Clinical Practice Guideline. For Blood Glucose: 60-79 mg/dL administer 7.5 gm (15ml); 45-59 mg/dL administer 12.5 gm (25ml); less than 45mg/dL administer 25gm (50ml). ++ If additional dextrose 50% needed, contact pharmacy or obtain from [facility] cart ++ glucose (GLUTOSE) 40 % oral gel 1-2 Tube(Linked Group 1) 1-2 Tube, Oral, ADMINISTER DIRECTED, Starting on Wed02/09/24 at 1329, Until Wed02/09/24 at 1752, Blood glucose <80 mg/dL, For patients who are alert, able to tolerate PO intake and with intact cognitive status administer as directed per Hypoglycemia in Non- Adults Clinical Practice Guideline. For Blood Glucose: 60-79 mg/dL administer 1 tube; 45-59 mg/dl administer 1.5 tubes; less than 45 mg/dL administer 2 tubes. Each tube of 37.5g delivers 15g of carbohydrate. Ibuprofen (MOTRIN) tablet 600 mg 600 mg, Oral, EVERY 6 HOURS NEEDED, Starting on Wed02/09/24 at 0912, Until Wed02/09/24 at 1752, Moderate Pain, Give with food Insulin lispro (HUMALOG) injection(Linked Group 1) Subcutaneous, NEEDED, Starting on Wed02/09/24 at 1329, Until Wed02/09/24 at 1752, Other, As needed for snacks, Insulin to carb ratio: Standard: 1 unit insulin = 10 grams carbs Correction Factor: not to be used with this order. Kwikpen: Prime pen before each injection; refer to Pen Priming and Care Handout for further details. Warning! Confirm patient. Insulin pen is for labeled individual patient use ONLY. Nicotine (NICORETTE) gum 4 mg 4 mg, Oral, ADMINISTER DIRECTED, Starting on Wed02/09/24 at 0912, Until Wed02/09/24 at 1752, Smoking cessation, May have 1 piece of gum every 1-2 hours with maximum of 24 pieces in 24 hours. Patient may self-administer. OLANZapine (zyPREXA ZYDIS) disintegrating tablet 10 mg(Linked Group 2) 10 mg, Oral, EVERY 4 HOURS NEEDED, Starting on Wed02/09/24 at 0912, Until Wed02/09/24 at 1752, Agitation, Maximum cumulative dose of Olanzapine is 30mg per 24 hours. OLANZapine (ZYPREXA) injection 10 mg(Linked Group 2) 10 mg, Intramuscular, EVERY 4 HOURS NEEDED, Starting on Wed02/09/24 at 0912, Until Wed02/09/24 at 1752, Agitation and patient is unwilling or unable to take PO medication, Notify physician if given IM. DO NOT GIVE WITHIN 2 HOURS OF IM LORAZEPAM. Maximum cumulative dose of Olanzapine is 30mg per 24 hours. For IM inj: dissolve the contents of the supplied vial using 2.1 mL of Sterile Water for Injection. The resulting solution (5 mg/mL) should appear clear and yellow. Solution should be used within 1 hour of reconstitution, and any unused portion should be discarded. Linked Groups Order Group 1: Insulin lispro (HUMALOG) injectionJump to med Subcutaneous, 4 TIMES DAILY WITH MEALS & AT BEDTIME, First dose on Wed02/09/24 at 1345, Until Discontinued, Insulin to carb ratio: Standard: 1 unit insulin = 10 grams carbs every meal and at bedtime Correction Factor: 151-200 = 1 unit; 201-250 = 2 units; 251-300 = 3 units; 301-350 = 4 units; 351-400 = 5 units; Kwikpen: Prime pen before each injection; refer to Pen Priming and Care Handout for further details. Warning! Confirm patient. Insulin pen is for labeled individual patient use ONLY. And Insulin lispro (HUMALOG) injectionJump to med Subcutaneous, NEEDED, Starting on Wed02/09/24 at 1329, Until Wed02/09/24 at 1752, Other, As needed for snacks, Insulin to carb ratio: Standard: 1 unit insulin = 10 grams carbs Correction Factor: not to be used with this order. Kwikpen: Prime pen before each injection; refer to Pen Priming and Care Handout for further details. Warning! Confirm patient. Insulin pen is for labeled individual patient use ONLY. And BLOOD GLUCOSE (POC DEVICE) (CANCELED) Routine, 4 TIMES DAILY BEFORE MEALS & AT BEDTIME, First occurrence on Wed02/09/24 at 1530, If any Blood Glucose (POC) is greater than 300mg/dl, then repeat Blood Glucose (POC) in 2 hours. If the initial blood glucose was greater than 300mg/dl and if second blood glucose is greater than 200md/dl, then notify Die Repairer Trimmer Dies. And BLOOD GLUCOSE (POC DEVICE) (CANCELED) Routine, DIRECTED, Starting on Wed02/09/24 at 1329, Until Specified, For all Blood Glucose LESS THAN 80 mg/dL, treat per Hypoglycemia in Non- Adults Clinical Practice Guideline (CPG) and recheck glucose 15 min after treatment. Repeat per CPG until glucose GREATER THAN 80 mg/dL. Once glucose IS GREATER THAN 80 mg/dL, recheck Blood Glucose every 1 hour x2, then resume as previously ordered. For Blood Glucose LESS THAN 80 mg/dL on admission OR LESS than 45 mg/dL at any time, obtain POC Blood Glucose every 4 hours for 6 occurrences AFTER treating per CPG. Obtain blood glucose for symptoms of hypoglycemia: sweating, shaking, fatigue, rapid pulse, slow thinking & dizziness. Notify physician w/results. Obtain blood glucose for symptoms of hyperglycemia: excessive thirst, blurred vision, excessive urination & tiredness. Notify physician w/results. If patient NPO, obtain POC Blood Glucose prior to administration of any insulin products. And COMMUNICATION ORDER FOR NURSING CARE: For Blood Glucose LESS THAN 80 mg/dl (CANCELED) Routine, CONTINUOUS, Starting on Wed02/09/24 at 1330, Until Specified, For Blood Glucose LESS THAN 80 mg/dl follow Hypoglycemia in Non- Adults Clinical Practice Guideline (CPG) And Dextrose 50% injection 7.5-25 gJump to med 7.5-25 g, Intravenous, ADMINISTER DIRECTED, Starting on Wed02/09/24 at 1329, Until Wed02/09/24 at 1752, Blood glucose <80 mg/dL, For patients who are not alert, are NPO, or are on IV insulin infusion administer as directed per Hypoglycemia in Non- Adults Clinical Practice Guideline. For Blood Glucose: 60-79 mg/dL administer 7.5 gm (15ml); 45-59 mg/dL administer 12.5 gm (25ml); less than 45mg/dL administer 25gm (50ml). ++ If additional dextrose 50% needed, contact pharmacy or obtain from [employer] cart ++ And glucose (GLUTOSE) 40 % oral gel 1-2 TubeJump to med 1-2 Tube, Oral, ADMINISTER DIRECTED, Starting on Wed02/09/24 at 1329, Until Wed02/09/24 at 1752, Blood glucose <80 mg/dL, For patients who are alert, able to tolerate PO intake and with intact cognitive status administer as directed per Hypoglycemia in Non- Adults Clinical Practice Guideline. For Blood Glucose: 60-79 mg/dL administer 1 tube; 45-59 mg/dl administer 1.5 tubes; less than 45 mg/dL administer 2 tubes. Each tube of 37.5g delivers 15g of carbohydrate. And NOTIFY PHYSICIAN, Blood Glucose LESS THAN 80 mg/dl (CANCELED) Routine, CONTINUOUS, Starting on Wed02/09/24 at 1330, Until Specified, Who to Notify: Die Repairer Trimmer Dies, For all Blood Glucose LESS THAN 80 mg/dl, notify Die Repairer Trimmer Dies after treatment per Hypoglycemia in Non- Adults Clinical Practice Guideline And Carbohydrate counts with meals (CANCELED) Routine, CONTINUOUS, Starting on Wed02/09/24 at 1330, Until Specified, Carbohydrate counts are to be done after each patient meal and with snack. Group 2: OLANZapine (zyPREXA ZYDIS) disintegrating tablet 10 mgJump to med 10 mg, Oral, EVERY 4 HOURS NEEDED, Starting on Wed02/09/24 at 0912, Until Wed02/09/24 at 1752, Agitation, Maximum cumulative dose of Olanzapine is 30mg per 24 hours. Or OLANZapine (ZYPREXA) injection 10 mgJump to med 10 mg, Intramuscular, EVERY 4 HOURS NEEDED, Starting on Wed02/09/24 at 0912, Until Wed02/09/24 at 1752, Agitation and patient is unwilling or unable to take PO medication, Notify physician if given IM. DO NOT GIVE WITHIN 2 HOURS OF IM LORAZEPAM. Maximum cumulative dose of Olanzapine is 30mg per 24 hours. For IM inj: dissolve the contents of the supplied vial using 2.1 mL of Sterile Water for Injection. The resulting solution (5 mg/mL) should appear clear and yellow. Solution should be used within 1 hour of reconstitution, and any unused portion should be discarded. Scheduled Medication Order 02/28/2024 02/29/2024 03/01/2024 acetaminophen (TYLENOL) tablet 1,000 mg (COMPLETED) 1,000 mg, oral, Once, On Wed03/01/24 at 2320, For 1 dose 2318 (Given - Provid er: Mp Ayoub RN) lidocaine 4 % patch 1 patch 1 patch, Topical, Administer over 12 Hours, Once, On Wed03/01/24 at 2336, For 1 dose, Apply to left trapezius area 2322 (Not Given - Pr ovider: Mp Ayoub RN - Reason: Patient/Resident/Agent refused - education provided ) Scheduled Medication Order 03/15/2024 03/16/2024 03/17/2024 ibuprofen (ADVIL,MOTRIN) tablet 600 mg (COMPLETED) 600 mg, oral, Once, On Wed03/17/24 at 1220, For 1 dose, Administer with food or milk to decrease GI upset 1222 (Given - Provid er: Izzy Yeboah RN) lidocaine 4 % patch 1 patch 1 patch, Topical, Administer over 12 Hours, Once, On Wed03/17/24 at 1220, For 1 dose, Apply to shoulder. 1222 (Patch Applied - Provider: Izzy Yeboah RN)1233 (Due: Patch Removed - Provider: Automatic Discharge Provider - Comment: Time automatically adjusted from order being discontinued) INFORMATION SOURCE (unrecogn ized section and content) DATE CREATED AUTHOR 04/27/2021 [facility] DATE CREATED AUTHOR AUTHOR'S ORGANIZ ATION 02/03/2022 [facility] DATE CREATED AUTHOR AUTHOR'S ORGANIZ ATION 08/21/2023 [facility] DATE CREATED AUTHOR AUTHOR'S ORGANIZ ATION 02/24/2024 [facility] DATE CREATED AUTHOR AUTHOR'S ORGANIZ ATION 03/03/2024 [facility] DATE CREATED AUTHOR AUTHOR'S ORGANIZ ATION 03/19/2024 [facility] DATE CREATED AUTHOR AUTHOR'S ORGANIZ ATION 03/19/2024 [facility] DATE CREATED AUTHOR AUTHOR'S ORGANIZ ATION 03/19/2024 [facility] DATE CREATED AUTHOR AUTHOR'S ORGANIZ ATION 03/19/2024 [facility] DATE CREATED AUTHOR AUTHOR'S ORGANIZ ATION 09/08/2024 [facility] DATE CREATED AUTHOR AUTHOR'S ORGANIZ ATION 07/02/2025 [facility] Care Teams (unrecognized sec tion and content) Team Status: Active Member Role Status Dates No Primary Care Physician Primary Care Provider Active Team Status: Inactive Member Role Status Dates Dr. Daniele Juarez MD Emergency Provider Active No Primary Care Physician Primary Care Provider Active Team Status: Inactive Member Role Status Dates No Primary Care Physician Primary Care Provider Active Dr. Andrew Ramirez MD Attending Provider, Emergency Provider Active Team Status: Inactive Member Role Status Dates Dr. Daniele Juarez MD Attending Provider, Emergency Provider Active No Primary Care Physician Primary Care Provider Active Team Status: Inactive Member Role Status Dates No Primary Care Physician Primary Care Provider Active Dr. Hilton Pizarro , Emergency Provider Active Train Dispatcher Relationship Specialty Start Date End Date Physician, No Pcp PCP - General 09/29/23 Train Dispatcher Relationship Specialty Start Date End Date Physician, No Pcp PCP - General 09/29/23 Train Dispatcher Relationship Specialty Start Date End Date Self, Self PCP - General Other 02/08/24 Train Dispatcher Relationship Specialty Start Date End Date Self, Self PCP - General Other 02/08/24 Train Dispatcher Relationship Specialty Start Date End Date Physician, No Pcp PCP - General 09/29/23 Train Dispatcher Relationship Specialty Start Date End Date Physician, No Pcp PCP - General 09/29/23 Team Status: Active Member Role/Relationship Status Dates Zebulun Beam VSC, INDUCTION HEAT TREATER-C Primary Care Provider Active Team Status: Inactive Member Role/Relationship Status Dates Zebulun Beam VSC, INDUCTION HEAT TREATER-C Primary Care Provider Active Start: April 16, 2025 End: April 16, 2025 Zebulun Beam VSC, INDUCTION HEAT TREATER-C Attending Provider Active Start: April 16, 2025 End: April 16, 2025 Team Status: Active Member Role/Relationship Status Dates Zebulun Beam VSC, INDUCTION HEAT TREATER-C Primary care physician Active Team Status: Inactive Member Role/Relationship Status Dates Zebulun Beam VSC, INDUCTION HEAT TREATER-C Primary care physician Active Start: April 16, 2025 End: April 16, 2025 Zebulun Beam VSC, INDUCTION HEAT TREATER-C Attending physician Active Start: April 16, 2025 End: April 16, 2025 Team Status: Inactive Member Role/Relationship Status Dates Zebulun Beam VSC, INDUCTION HEAT TREATER-C Primary care physician Active Start: June 06, 2025 End: June 26, 2025 [place] Beam Attending physician Active Start: Jessica ramesh 2024 End: June 26, 2025 Goals (unrecognized section and content) Goals may be documented in a n alternate sectionGoals may be documented in an alternate sectionGoals may be documented in an alternate sectionGoals may be documented in an alternate section Ordered Prescriptions (unrec ognized section and content) Prescription Sig Dispensed Refills Start Date End Da te benzonatate (TESSALON) 200 mg capsule Take 1 capsule (200 mg total) by mouth 3 (three) times a day if needed for cough for up to 7 days. Do not crush or chew. 21 capsule 0 09/29/2023 10/06/2023 Prescription Sig Dispensed Refills Start Date End Da te ibuprofen (ADVIL,MOTRIN) 600 mg tablet Take 1 tablet (600 mg total) by mouth every 6 (six) hours if needed for mild pain (for pain) for up to 5 days. 20 each 03/01/2024 03/06/2024 acetaminophen (TYLENOL) 500 mg tablet Take 2 tablets (1,000 mg total) by mouth every 6 (six) hours if needed for mild pain for up to 5 days. 30 tablet 03/01/2024 03/06/2024 Prescription Sig Dispensed Refills Start Date End Da te metFORMIN (GLUCOPHAGE) 500 mg tablet Take 1 tablet (500 mg total) by mouth 2 (two) times a day with meals. 60 each 03/17/2024 04/16/2024 ibuprofen (ADVIL,MOTRIN) 600 mg tablet Take 1 tablet (600 mg total) by mouth every 6 (six) hours if needed for mild pain (for pain) for up to 10 days. 30 tablet 03/17/2024 03/27/2024 cyclobenzaprine (FLEXERIL) 10 mg tablet Take 1 tablet (10 mg total) by mouth 2 (two) times a day if needed for muscle spasms for up to 10 days. 20 tablet 03/17/2024 03/27/2024 lidocaine (Lidoderm) 5 % patch Apply 1 patch topically 1 (one) time each day. Remove & discard patch within 12 hours or as directed by . 30 each 03/17/2024 04/16/2024 FOR RECORDS PERTAINING TO PATIENTS WHO ARE OR HAVE BEEN ENROLLED IN A CHEMICAL DEPENDENCY/SUBSTANCEABUSE PROGRAM, SOME INFORMATION MAY BE OMITTED. This clinical summary was aggregated from multiple sources. Caution should be exercised in using it in the provision of clinical care. This summary normalizes information from multiple sources, and as a consequence, information in this document may materially change the coding, format and clinical context of patient data. In addition, data may be omitted in some cases. CLINICAL DECISIONS SHOULD BE BASED ON THE PRIMARY CLINICAL RECORDS. [employer] [facility] provides no warranty or guarantee of the accuracy or completeness of information in this document.
[2025-07-17 20:34] LABS: Cholesterol 201 mg/dL (<=200); Low Density Lipoprotein Calc. 112 mg/dL; Triglycerides 261 mg/dL; Very Low Density Lipoprotein 52 mg/dL (5-40); cholesterol:hdl ratio screen 4.53
== END | disposition home or self-care (01) ==
LOC: VSLAB 14:44
DX: E78.5 Hyperlipidemia, unspecified (principal)
CPT/HCPCS: 36415; 80061

== ENCOUNTER 2025-08-07 09:53 | Outpatient (RCR) | payer MEDICAID, SELFPAY | END 2025-08-26 23:59 | LOC: NS 09:53 | DX: Z71.3 Dietary counseling and surveillance (principal); E11.9 Type 2 diabetes mellitus without complications ==